=== PATIENT | female | born 1965 | race Caucasian/White ===

== ENCOUNTER → 2016-12-10 | Outpatient (CLI) | payer BC ==
--- NOTE | 2016-12-10 22:10 | MR ---
MRI of the brain with and without contrast HISTORY: MS follow-up COMPARISON: 03/11/2016 TECHNIQUE: T1-weighted sagittal, T2, FLAIR, and diffusion axial, postcontrast T1 axial and coronal vi ews of the brain are submitted. CONTRAST: 18 mL MultiHance FINDINGS: There is no evidence of acute ischemia. The ventricles, basal cisterns, and sulci overlying the co nvexities are consistent with the patient's age. There is no mass effect or enhancing mass. Craniocervical junction maintained. Changes of mild chronic sinusitis noted. There is motion artifact. No cerebellopontine angle mass. There is a partially empty sella turcica. Intraorbital structures have a normal appearance. Changes of mild chronic mastoiditis on the right. T iny pineal gland cyst measuring 4 mm noted. WHITE MATTER: There again is noted to be 8 foci of abnormal signal within the white matter scattered throughout bot h cerebral hemispheres all measuring 5 mm or less. Findings appear stable in size, morphology and num jakub relative to the previous exam. No enhancing lesions. No callosal lesions. No lesions perpendicular to the ventricular system. IMPRESSION: 1. Stable minimal nonspecific white matter changes. Differential diagnosis includes demyelinating pro cess, migraine headaches, hypertension, or remote microvascular ischemia.
== END | disposition home or self-care (01) ==
LOC: RADMRIMAIN 17:12
PROVIDERS: ATTEND Psychiatry & Neurology Neurology
DX: R90.82 White matter disease, unspecified (principal)
CPT/HCPCS: 70553; A9577

== ENCOUNTER → 2016-12-11 | Outpatient (CLI) | payer BC ==
--- NOTE | 2016-12-11 21:49 | MR ---
EXAMINATION TYPE: MR lumbar spine wo con DATE OF EXAM: 12/11/2016 6:03 PM COMPARISON: Prior MRI lumbar spine April 17, 2012. HISTORY: LBP S/P fall 4 years ago; Prior MR on pacs 2011 TECHNIQUE: Multiplanar, multisequence imaging of the lumbar spine is performed without IV contrast. FINDINGS: Sagittal images of the lumbar spine show vertebral body heights and alignment to appear sat isfactory. There is multilevel disc desiccation mild disc space narrowing with relative sparing of L4 -L5 level redemonstrated. No significant posterior disc herniations are seen on sagittal images. The conus medullaris is normal in position and signal ending at mid L1 vertebral body level. There is het erogeneous endplate changes with moderate spurring most pronounced in mid lumbar levels redemonstrate d. Axial images at the T12-L1 level shows small central disc protrusion on axial image 28 minimally effa cing the anterior thecal sac, bilateral neural foramina are patent. Axial images at the L1-L2 level show mild broad disc bulge minimally effacing the anterior thecal sac , bilateral neural foramina are patent. No significant change from prior study is seen. Axial images at the L2-L3 level show mild broad disc bulge mildly effacing anterior thecal sac on axi al image 18, bilateral neural foramina are patent. No significant change from prior study is seen. Axial images at the L3-L4 level show mild facet degenerative changes bilaterally. There is mild to mo derate broad disc bulge minimally effacing the anterior thecal sac, there is mild bilateral anterior inferior neural foraminal narrowing. Degenerative changes have progressed from prior study. Axial images at the L4-L5 level show mild to moderate facet degenerative changes bilaterally. There i s broad-based central disc protrusion minimally effacing the anterior thecal sac, bilateral neural fo ramina are patent. No significant change from prior study is seen. Axial images at L5-S1 level show mild to moderate facet degenerative changes bilaterally. Spinal rodrigo l is preserved and bilateral neural foramina remain patent. IMPRESSION: Multilevel degenerative changes in the lumbar spine most pronounced in the mid lumbar lev els with progression in findings at L3-L4 level noted from prior.
== END | disposition home or self-care (01) ==
LOC: RADMRIMAIN 17:06
PROVIDERS: ATTEND Psychiatry & Neurology Neurology
DX: M47.816 Spondylosis without myelopathy or radiculopathy, lumbar region (principal)
CPT/HCPCS: 72148

== ENCOUNTER → 2016-12-25 | Outpatient (CLI) | payer BC ==
[2016-12-25 19:53] LABS: ALT 48 U/L (9-52); AST 24 U/L (14-36); Alkaline Phosphatase 119 U/L (38-126); Anion Gap 14 mmol/L; Blood Urea Nitrogen 25 mg/dL (7-17); Calcium 9.8 mg/dL (8.4-10.2); Carbon Dioxide 21 mmol/L (22-30); Chloride 105 mmol/L (98-107); Cholesterol 188 mg/dL (<200); Glucose 93 mg/dL (74-99); HDL Cholesterol 68 mg/dL (40-60); Non-African American GFR(MDRD) 39 (>60 ml/min/1.73 sqM); Sodium 140 mmol/L (137-145); Total Bilirubin 0.7 mg/dL (0.2-1.3); Total Protein 7.8 g/dL (6.3-8.2); Triglycerides 183 mg/dL (<150)
== END | disposition home or self-care (01) ==
LOC: MMGSC 15:58
PROVIDERS: ATTEND Family Medicine
DX: E03.9 Hypothyroidism, unspecified (principal); E78.00 Pure hypercholesterolemia, unspecified
CPT/HCPCS: 36415; 80053; 80061; 84439; 84443

== ENCOUNTER → 2017-01-06 | Outpatient (CLI) | payer BC | LOC: MMGSC 16:10 | PROVIDERS: ATTEND Family Medicine | DX: E03.9 Hypothyroidism, unspecified (principal) | CPT/HCPCS: 84439; 84443 ==

== ENCOUNTER → 2017-01-06 | Outpatient (CLI) | payer BC ==
[2017-01-06 19:16] LABS: Basophils % (A) 1 %; CH 33.3; CHCM 34.6; Eosinophils # (A) 0.1 k/uL (0-0.7); Eosinophils % (A) 2 %; HCT 44.8 % (34.0-46.0); Luc # (Auto) 0.19; Luc % (Auto) 3; Lymphocytes # (A) 2.1 k/uL (1.0-4.8); Lymphocytes % (A) 32 %; MCH 32.5 pg (25.0-35.0); MCHC 33.6 g/dL (31.0-37.0); MCV 96.7 fL (80.0-100.0); Mean Platelet Volume 8.4; Monocytes # (A) 0.3 k/uL (0-1.0); Monocytes % (A) 5 %; Neutrophils # (A) 3.7 k/uL (1.3-7.7); Neutrophils % (A) 57 %; RBC 4.63 m/uL (3.80-5.40); RDW 13.9 % (11.5-15.5); WBC 6.4 k/uL (3.8-10.6); WBC (Perox) 6.48
[2017-01-06 19:47] LABS: ALT 41 U/L (9-52); AST 35 U/L (14-36); Alkaline Phosphatase 102 U/L (38-126); Anion Gap 11 mmol/L; Blood Urea Nitrogen 11 mg/dL (7-17); Calcium 9.3 mg/dL (8.4-10.2); Carbon Dioxide 22 mmol/L (22-30); Chloride 108 mmol/L (98-107); Glucose 98 mg/dL (74-99); Non-African American GFR(MDRD) >60 (>60 ml/min/1.73 sqM); Potassium 4.2 mmol/L (3.5-5.1); Sodium 141 mmol/L (137-145); Total Bilirubin 0.6 mg/dL (0.2-1.3); Total Protein 6.9 g/dL (6.3-8.2)
== END ==
LOC: MMGSC 16:09
PROVIDERS: ATTEND Nurse Practitioner Acute Care
DX: G35 Multiple sclerosis (principal)
CPT/HCPCS: 36415; 80053; 85025

== ENCOUNTER → 2017-04-14 | Outpatient (CLI) | payer BC ==
[2017-04-14 18:51] LABS: ALT 53 U/L (9-52); AST 32 U/L (14-36); Alkaline Phosphatase 117 U/L (38-126); Anion Gap 10 mmol/L; Blood Urea Nitrogen 11 mg/dL (7-17); Calcium 9.6 mg/dL (8.4-10.2); Carbon Dioxide 24 mmol/L (22-30); Chloride 108 mmol/L (98-107); Glucose 88 mg/dL (74-99); Non-African American GFR(MDRD) 52 (>60 ml/min/1.73 sqM); Potassium 4.4 mmol/L (3.5-5.1); Sodium 142 mmol/L (137-145); Total Bilirubin 0.4 mg/dL (0.2-1.3)
== END ==
LOC: MMGSC 16:46
PROVIDERS: ATTEND Family Medicine
DX: E03.9 Hypothyroidism, unspecified (principal); E55.9 Vitamin D deficiency, unspecified; Z51.81 Encounter for therapeutic drug level monitoring
CPT/HCPCS: 36415; 80053; 82306; 84439; 84443

== ENCOUNTER → 2017-06-18 | Outpatient (CLI) | payer BC ==
--- NOTE | 2017-06-18 21:01 | MR ---
EXAMINATION TYPE: MR brain wo/w con DATE OF EXAM: 06/18/2017 COMPARISON: Prior MRI brain December 10, 2016. HISTORY: Headaches and Follow Up MS, white matter changes per order. TECHNIQUE: Multiplanar, multisequence images of the brain and brainstem is performed without and with IV contras t, utilizing 8.5 mL intravenous Gadavist gadolinium contrast is administered intravenously. Demyelin ating disease protocol with additional Sagittal Flair sequence performed. FINDINGS: T2 Lesions Present : Yes Approximate Number of Lesions: 6-10 scattered lesions Locations Identified : Superficial deep and periventricular lesions. Size of Reference Lesion(s): 1. 0.5 cm x 0.5 cm x 1.3 cm on axial image 21 and sagittal image 33 right frontal subcortical lesion stable. 2 0.5 cm x 0.4 cm x 0.4 cm on axial image 17 and sagittal image 15 left frontal periventricular les ion stable. Enhancing Lesion(s) Present: No Change from Prior: Stable Diffusion weighted images demonstrate no evidence of a recent infarct or other diffusion abnormality. There is no worrisome extra-axial fluid collection. The ventricular system and cisternal spaces ar e normal in size and appearance. The brain volume is age appropriate. Midline structures demonstrate normal morphology. The craniocervical junction appears within normal limits. Post contrast images demonstrate no abnormal enhancement. The dural venous sinuses appear pa tent. Mild mucosal thickening involving anterior ethmoid sinuses bilaterally remains present otherwis e paranasal sinuses are clear. Globes are intact bilaterally. IMPRESSION: Mild nonspecific white matter changes redemonstrated. No new or enhancing lesions are see n.
== END | disposition home or self-care (01) ==
LOC: RADMRIMAIN 16:45
PROVIDERS: ATTEND Nurse Practitioner Acute Care
DX: R90.82 White matter disease, unspecified (principal)
CPT/HCPCS: 70553; A9581

== ENCOUNTER → 2017-07-14 | Outpatient (CLI) | payer BC ==
[2017-07-14 18:49] LABS: Basophils # (A) 0.1 k/uL (0-0.2); Basophils % (A) 1 %; CH 33.2; CHCM 33.5; Eosinophils # (A) 0.2 k/uL (0-0.7); Eosinophils % (A) 3 %; HCT 46.3 % (34.0-46.0); HDW 2.53; HGB 15.3 gm/dL (11.4-16.0); Luc # (Auto) 0.11; Luc % (Auto) 2; Lymphocytes # (A) 2.3 k/uL (1.0-4.8); Lymphocytes % (A) 31 %; MCH 32.9 pg (25.0-35.0); MCHC 33.1 g/dL (31.0-37.0); MCV 99.6 fL (80.0-100.0); Mean Platelet Volume 8.2; Monocytes # (A) 0.3 k/uL (0-1.0); Monocytes % (A) 4 %; Neutrophils # (A) 4.4 k/uL (1.3-7.7); Neutrophils % (A) 60 %; RBC 4.65 m/uL (3.80-5.40); WBC 7.4 k/uL (3.8-10.6); WBC (Perox) 7.47
[2017-07-14 19:01] LABS: ALT 49 U/L (9-52); AST 31 U/L (14-36); Alkaline Phosphatase 117 U/L (38-126); Anion Gap 8 mmol/L; Blood Urea Nitrogen 11 mg/dL (7-17); Calcium 9.8 mg/dL (8.4-10.2); Carbon Dioxide 25 mmol/L (22-30); Chloride 106 mmol/L (98-107); Cholesterol 193 mg/dL (<200); Glucose 79 mg/dL (74-99); HDL Cholesterol 46 mg/dL (40-60); Non-African American GFR(MDRD) >60 (>60 ml/min/1.73 sqM); Potassium 4.4 mmol/L (3.5-5.1); Sodium 139 mmol/L (137-145); Total Bilirubin 0.4 mg/dL (0.2-1.3)
== END ==
LOC: MMGSC 17:07
PROVIDERS: ATTEND Family Medicine
DX: E78.5 Hyperlipidemia, unspecified (principal); E03.9 Hypothyroidism, unspecified; I10 Essential (primary) hypertension
CPT/HCPCS: 36415; 80053; 80061; 83721; 84439; 84443; 84480; 85025

== ENCOUNTER 2017-11-06 09:56 | Day surgery (SDC) | payer BC ==
[2017-11-03 15:06] VITALS: BMI 29.7
[~2017-11-06 09:56] MED LIST: LACTATED RINGERS 1,000 ML IV SCH; LIDOCAINE 1% 20 ML VIAL (10MG/ML) FOR IV START INTRADERMA PRN
[2017-11-06 10:20] VITALS: TEMP 97.6
[2017-11-06] MEDS ORDERED: PROPOFOL 10 MG/ML 20 ML VIAL IV ONE (11:06)
--- NOTE | 2017-11-06 11:28 | P.PCN ---
Date of Procedure: 11/06/17 Procedure(s) Performed: BRIEF HISTORY: Patient is a 52 -year-old pleasant white female, scheduled for an elective colonoscopy as a part of in for colorectal neoplasia. PROCEDURE PERFORMED: Colonoscopy. PREOPERATIVE DIAGNOSIS: Screening for colon cancer. IV sedation per Anesthesia. PROCEDURE: After informed consent was obtained, the patient, was brought into the endoscopy unit. IV sedation was administered by Anesthesia under continuous monitoring. Digital rectal examination was normal. Initially the Olympus CF- 160 flexible video colonoscope was then inserted in the rectum, gradually advanced into the cecum without any difficulty. Careful examination was performed as the scope was gradually being withdrawn. Ileocecal valve and the appendiceal orifice were visualized and appeared normal. Prep was poor in some areas of the colon. Mucosa of the cecum, ascending colon, transverse colon, descending colon, sigmoid colon, and rectum appeared normal. Retroflexion was performed in the rectum and no lesions were seen. The patient tolerated the procedure well. IMPRESSION: Normal-appearing colon from rectum to cecum with no evidence of colorectal neoplasia. RECOMMENDATIONS: Findings of this examination were discussed with the patient as well as her family. She was advised to have a repeat screening colonoscopy in 5 years from now because of poor prep that was encountered this examination.
[2017-11-06 11:48] VITALS: BP 132/76; PULSE 78; RESP 18
== END 2017-11-06 12:08 | disposition home or self-care (01) ==
LOC: ORWHC2ENDO 09:56
PROVIDERS: ATTEND Internal Medicine Gastroenterology
DX: Z12.11 Encounter for screening for malignant neoplasm of colon (principal); E78.5 Hyperlipidemia, unspecified; F17.200 Nicotine dependence, unspecified, uncomplicated; E07.9 Disorder of thyroid, unspecified; K21.9 Gastro-esophageal reflux disease without esophagitis; Z79.82 Long term (current) use of aspirin; Z79.891 Long term (current) use of opiate analgesic; Z79.899 Other long term (current) drug therapy
CPT/HCPCS: J2704; G0121

== ENCOUNTER → 2018-04-06 | Outpatient (CLI) | payer BC ==
--- NOTE | 2018-04-07 00:27 | MR ---
EXAMINATION TYPE: MR lumbar spine wo/w con DATE OF EXAM: 04/06/2018 COMPARISON: 12/11/2016 HISTORY: Low back pain TECHNIQUE: Multiplanar, multisequence images of the lumbar spine were acquired utilizing 10 mL intravenous gadol inium contrast. The lumbar vertebra have normal alignment. There is mild narrowing and decreased signal in the disks throughout the lumbar spine. There is no compression fracture. The neuroforamina are fairly well-main tained. There is no spinal stenosis. There is no lumbar paraspinal mass. I see no bony destructive pr ocess. The contrast images show no pathologic enhancement. The visualized sacroiliac joints appear in tact. There is a developmentally large spinal canal and no sign of risk for spinal stenosis. There is a small rounded 7 mm fluid signal area in the right side neural foramen of L5-S1. IMPRESSION: Mild degenerative disc changes in the lumbar spine. No spinal stenosis or lumbar significant disc her niation. There is overall not in adverse change compared to old exam. Stable small lateral meningocel e at L5-S1 on the right side.
== END | disposition home or self-care (01) ==
LOC: RADMRIMAIN 14:34
PROVIDERS: ATTEND Pain Medicine Pain Medicine
DX: M47.26 Other spondylosis with radiculopathy, lumbar region (principal); Q05.7 Lumbar spina bifida without hydrocephalus
CPT/HCPCS: 82565; 84520; 72158; 36415; A9581

== ENCOUNTER 2018-07-04 18:49 | Emergency (ER) | payer BC ==
[2018-07-04 18:57] VITALS: BP 135/88; PULSE 91; RESP 18; TEMP 98.5
[2018-07-04] MEDS ORDERED: TOPICAL SKIN ADHESIVE 1 EACH AMP TOPICAL ONE (19:18)
[2018-07-04] MEDS ORDERED: DIPH,PERTUS(ACELL)TETVAC-LF 0.5 ML VIAL IM ONE (19:18)
--- NOTE | 2018-07-04 19:52 | ED ---
Wound/Laceration HPI - General Chief Complaint: Wound/Laceration Stated Complaint: Hand Laceration Time Seen by Provider: 07/04/18 19:12 Source: patient, RN notes reviewed Mode of arrival: ambulatory Limitations: no limitations - History of Present Illness Initial Comments: This is a pleasant 53-year-old, [id number] female presents emergency department complaining of a laceration to the palmar aspect of her hand. She sustained from a tin can lid from a dog food can. Injury occurred just prior to arrival. Patient is on sure of her last tetanus shot. Patient denies any other injuries. Patient is a cigarette smoker. Patient denies any other health issues which would cause immunosuppression. - Related Data Home Medications Medication Instructions Recorded Confirmed Butalbit/Acetamin/Caff/Codeine 1 - 2 tab PO Q6H PRN 01/21/15 11/06/17 [Butal/APAP/Caff/Cod 79-734-91-30MG] HYDROcodone/APAP 7.5-325MG [Tye 1 tab PO Q6HR PRN 03/04/16 11/06/17 7.5-325] Levothyroxine Sodium [Synthroid] 50 mcg PO DAILY 03/05/16 11/06/17 Atorvastatin [Lipitor] 40 mg PO HS 10/03/17 11/06/17 Cyclobenzaprine [Flexeril] 10 mg PO HS 10/03/17 11/06/17 DULoxetine HCL [Cymbalta] 60 mg PO DAILY 10/03/17 11/06/17 Levothyroxine Sodium [Synthroid] 200 mcg PO DAILY 10/03/17 11/06/17 Temazepam [Restoril] 15 mg PO HS 10/03/17 11/06/17 Topiramate [Topamax] 50 mg PO DAILY 10/03/17 11/06/17 Aspirin EC [Ecotrin] 325 mg PO HS 11/03/17 11/06/17 Allergies Allergy/AdvReac Type Severity Reaction Status Date / Time gabapentin Allergy Rash/Hives Verified 07/04/18 18:57 Review of Systems ROS Statement: Those systems with pertinent positive or pertinent negative responses have been documented in the HPI. ROS Other: All systems not noted in ROS Statement are negative. Past Medical History Past Medical History: GERD/Reflux, Hyperlipidemia, Neurologic Disorder, Thyroid Disorder Additional Past Medical History / Comment(s): 2016 Possible TIA/CVA or migraine with double vision, currently being tested for multiple sclerosis, chronic low back pain-L1,2,3, frequent migraines, hypothyroid. History of Any Multi-Drug Resistant Organisms: None Reported Past Surgical History: Section, Orthopedic Surgery Additional Past Surgical History / Comment(s): BONE SPURS REMOVED FROM BILAT SHOULDERS Past Anesthesia/Blood Transfusion Reactions: No Reported Reaction Past Psychological History: No Psychological Hx Reported Smoking Status: Current every day smoker Past Alcohol Use History: Occasional Past Drug Use History: None Reported - Past Family History Father History Unknown: Yes Family Medical History: Diabetes Mellitus Additional Family Medical History / Comment(s): Father lived to be 78yrs old. Mother History Unknown: Yes Family Medical History: COPD, Respiratory Disorder Additional Family Medical History / Comment(s): Mother of respiratory failure at the age of 69yrs. General Exam Limitations: no limitations General appearance: alert Head exam: Present: atraumatic, normocephalic, normal inspection Eye exam: Present: normal appearance, EOMI ENT exam: Present: normal exam Neck exam: Present: normal inspection. Absent: tenderness, meningismus, lymphadenopathy Respiratory exam: Present: normal lung sounds bilaterally. Absent: respiratory distress, wheezes, rales, rhonchi, stridor Cardiovascular Exam: Present: regular rate, normal rhythm, normal heart sounds. Absent: systolic murmur, diastolic murmur, rubs, gallop, clicks Right Forearm Wrist exam: Present: normal inspection, full ROM, tenderness. Absent: laceration, ecchymosis Hand Wrist exam: Present: full ROM, laceration, other (1.5 cm linear laceration overlying the hyperthenar eminence, no contamination or foreign body no surrounding tenderness). Absent: normal inspection, tenderness, swelling, abrasion, ecchymosis, deformity Neuro motor exam: Present: wrist extension intact, thumb opposition intact. Absent: thumb IP flexion intact, thumb adduction intact, fingers 2-5 abduction intact Vascular: Present: normal capillary refill (Less than 2 seconds), radial pulse ( 2+), brachial pulse (2+). Absent: vascular compromise Course Vital Signs 07/04/18 18:55 Temperature 98.5 F Pulse Rate 91 Respiratory 18 Rate Blood Pressure 135/88 O2 Sat by Pulse 98 Oximetry Procedures - Laceration Laceration #1 Consent Obtained: verbal consent Time Out Performed: No Indication: laceration Site: hand (Right) Size (cm): 2 Description: linear Depth: simple, single layer Pre-repair: wound explored, irrigated extensively Type of Sutures: other (Tissue adhesive) Patient Tolerated Procedure: well, no complications Medical Decision Making - Medical Decision Making Patient counseled on signs and symptoms of infection. Patient counseled on wound care and follow-up. Return and follow-up parameters discussed. Disposition Clinical Impression: Laceration of right hand without complication, excluding fingers Disposition: HOME SELF-CARE Condition: Good Instructions: Skin Adhesive Care (ED) Additional Instructions: .Return to the ER at once if the symptoms worsen or problems or difficulties arise. Is patient prescribed a controlled substance at d/c from ED?: No Referrals: Kim Osborne MD [Primary Care Provider] - 1-2 days Time of Disposition: 20:01
== END 2018-07-04 20:00 | disposition home or self-care (01) ==
LOC: EC 18:49
DX: S61.411A Laceration without foreign body of right hand, initial encounter (principal); E78.5 Hyperlipidemia, unspecified; E03.9 Hypothyroidism, unspecified; G43.909 Migraine, unspecified, not intractable, without status migrainosus; M54.5 Low back pain; G89.29 Other chronic pain; Z23 Encounter for immunization; F17.210 Nicotine dependence, cigarettes, uncomplicated; Z79.82 Long term (current) use of aspirin; Z79.899 Other long term (current) drug therapy; Z88.8 Allergy status to other drugs, medicaments and biological substances; W26.8XXA Contact with other sharp object(s), not elsewhere classified, initial encounter
CPT/HCPCS: 12001; 90471; 90715; 99282

== ENCOUNTER → 2018-08-24 | Outpatient (CLI) | payer BC ==
--- NOTE | 2018-08-26 10:28 | MM ---
Reason for exam: screening (asymptomatic). Last mammogram was performed 3 years and 5 months ago. History: Patient is postmenopausal. Physical Findings: A clinical breast exam by your physician is recommended on an annual basis and results should be correlated with mammographic findings. MG Screening Mammo w CAD Bilateral CC and MLO view(s) were taken. Prior study comparison: April 06, 2015, bilateral MG screening mammo w CAD. October 27, 2012, bilateral digital screening mammo w/CAD. There are scattered fibroglandular densities. Finding: There is a 5 mm indistinct irregular mass located 6 cm from the nipple in the upper outer quadrant, middle position of the left breast. Recommend compression left CC and MLO and standard ML view. New finding since April 06, 2015 and October 27, 2012. ASSESSMENT: Incomplete: need additional imaging evaluation, BI-RAD 0 RECOMMENDATION: Special view mammogram of the left breast. If lesion persists on supplemental views, image directed ultrasound is recommended. [facility] will attempt to contact patient to return for supplemental views and ultrasound if indicated.
== END ==
LOC: RADMAMWWP 15:34
PROVIDERS: ATTEND Family Medicine
DX: Z12.31 Encounter for screening mammogram for malignant neoplasm of breast (principal)
CPT/HCPCS: 77067

== ENCOUNTER → 2019-07-15 | Outpatient (CLI) | payer OTHER ==
--- NOTE | 2019-07-15 12:30 | XR ---
Thoracic spine HISTORY: Back strain 3 views of the thoracic spine There is a mild S-shaped thoracic lumbar scoliosis. There is multilevel spondylosis. Loss of disc hei ght present at intervertebral levels. Thoracic vertebral bodies show preserved height and bone minera lization. IMPRESSION: Degenerative disc disease.
== END | disposition home or self-care (01) ==
LOC: RADXRMAIN 12:13
PROVIDERS: ATTEND Emergency Medicine
DX: M51.34 Other intervertebral disc degeneration, thoracic region (principal)
CPT/HCPCS: 72072

== ENCOUNTER → 2019-12-29 | Outpatient (CLI) | payer OTHER ==
--- NOTE | 2019-12-29 16:47 | XR ---
Cervical spine HISTORY: Trauma and pain 5 views of the cervical spine No comparisons Multilevel facet arthropathy is present. Foraminal encroachment is present due to uncovertebral joint hypertrophy at C4-5 and C5-6 bilaterally. There is associated loss of disc height at C4-5, C5-6 and C6-7, associated spondylosis. Loss of normal cervical lordosis may be due to muscle spasm. Prevertebr al soft tissues are normal. C7-T1 not included on exam. IMPRESSION: Degenerative disc disease and facet arthropathy. No acute fracture or subluxation evident with limitations as described.
--- NOTE | 2019-12-29 16:48 | XR ---
Lumbar spine HISTORY: Contusion, trauma and pain 3 views of the lumbar spine correlated to prior exam 04/09/2012 Lumbar vertebral bodies show preserved height and alignment. Bone mineralization is reduced. There is multilevel spondylosis. Loss of disc height present at the intervertebral levels. Sclerosis in the p osterior elements consistent with facet arthropathy. Vascular calcifications present within the aorto iliac distribution. IMPRESSION: Degenerative disc disease and facet arthropathy, no acute fracture or subluxation. Osteop enia.
--- NOTE | 2019-12-29 17:21 | XR ---
AP pelvis HISTORY: Trauma and pain Single frontal view of the pelvis Facet arthropathy changes noted in the lower lumbar spine. Bone mineralization is maintained. Alignme nt and joint spaces are normal. Osteitis pubis changes are present. IMPRESSION: No acute fracture or dislocation.
== END | disposition home or self-care (01) ==
LOC: RADXRMAIN 16:22
PROVIDERS: ATTEND Emergency Medicine
DX: M50.30 Other cervical disc degeneration, unspecified cervical region (principal); M47.812 Spondylosis without myelopathy or radiculopathy, cervical region; M51.36 Other intervertebral disc degeneration, lumbar region; M47.816 Spondylosis without myelopathy or radiculopathy, lumbar region; S30.0XXA Contusion of lower back and pelvis, initial encounter
CPT/HCPCS: 72050; 72100; 72170

== ENCOUNTER → 2020-07-07 | Outpatient (CLI) | payer BC ==
[2020-07-07 13:05] LABS: Basophils % (A) 0 %; Eosinophils # (A) 0.2 k/uL (0-0.7); Eosinophils % (A) 2 %; HCT 46.3 % (34.0-46.0); HGB 15.3 gm/dL (11.4-16.0); Lymphocytes # (A) 2.3 k/uL (1.0-4.8); Lymphocytes % (A) 28 %; MCV 99.8 fL (80.0-100.0); Mean Platelet Volume 8.5; Monocytes # (A) 0.4 k/uL (0-1.0); Monocytes % (A) 5 %; Neutrophils # (A) 5.5 k/uL (1.3-7.7); Neutrophils % (A) 65 %; Platelet Count 205 k/uL (150-450); RBC 4.63 m/uL (3.80-5.40); RDW 12.6 % (11.5-15.5); WBC 8.5 k/uL (3.8-10.6)
[2020-07-07 19:03] LABS: Cyclic Citrull Pep IgG Unit <0.5 U/mL; Cyclic Citrullinated Pep IgG NEGATIVE (NEGATIVE)
[2020-07-07 19:24] LABS: ALT 27 U/L (8-44); AST 26 U/L (13-35); Albumin/Globulin Ratio 2.47 (1.60-3.17); Alkaline Phosphatase 89 U/L (41-126); BUN/Creat Ratio 11.82 Ratio (12.00-20.00); Calcium 9.1 mg/dL (8.7-10.3); Carbon Dioxide 27.1 mmol/L (21.6-31.8); Chloride 108 mmol/L (96-109); Creatine Kinase 251 U/L (26-186); Globulin 1.9 g/dL (1.6-3.3); Glucose 82 mg/dL (70-110); Magnesium 2.1 mg/dL (1.5-2.4); Non-African American GFR(CKD) 56.1 (60.0-200.0); Potassium 4.1 mmol/L (3.5-5.5); Rheumatoid Factor, Qnt <4 IU/mL (0-13); Sodium 140 mmol/L (135-145); Total Bilirubin 0.6 mg/dL (0.3-1.2); Total Protein 6.6 g/dL (6.2-8.2)
[2020-07-07 19:48] LABS: Erythrocyte Sedimentation Rate 8 mm/Hr (0-30)
== END | disposition home or self-care (01) ==
LOC: LABWHC1 11:52
PROVIDERS: ATTEND Family Medicine
DX: M79.10 Myalgia, unspecified site (principal); M25.50 Pain in unspecified joint
CPT/HCPCS: 36415; 80053; 82550; 83735; 85025; 85652; 86200; 86431

== ENCOUNTER → 2020-07-20 | Outpatient (CLI) | payer BC | END | disposition home or self-care (01) | LOC: LABWHC1 10:21 | PROVIDERS: ATTEND Family Medicine | DX: M79.10 Myalgia, unspecified site (principal) | CPT/HCPCS: 36415; 82550 ==

== ENCOUNTER → 2021-01-10 | Outpatient (CLI) | payer BC ==
--- NOTE | 2021-01-10 21:29 | MR ---
EXAMINATION TYPE: MR lumbar spine wo con DATE OF EXAM: 01/10/2021 COMPARISON: 12/11/2016 HISTORY: Low back pain for 1 month that travels down left leg. CONTRAST: 0 mL intravenous Gadavist. TECHNIQUE: Multiplanar, multisequence images of the lumbar spine were acquired. FINDINGS: L5-S1: No significant disc bulge or disc herniation. No spinal canal stenosis. No foraminal stenosi s. Facet hypertrophy is present.. L4-L5: No significant disc bulge or disc herniation. No spinal canal stenosis. No foraminal stenosi s. . L3-L4: Moderate left lateral disc bulge is present extending into the neural foramen. This has contac t with the exiting nerve root. Moderate foraminal narrowing is present. Mild facet hypertrophy is pre sent. No spinal canal stenosis. L2-L3: No significant disc bulge or disc herniation. No spinal canal stenosis. No foraminal stenosi s. . L1-L2: No significant disc bulge or disc herniation. No spinal canal stenosis. No foraminal stenosi s. . T12-L1: There is a broad central disc herniation with mild to moderate anterior thecal sac compressio n. No cord contact is evident. On the scan extends beyond the endplate of L1. No spinal canal stenosi s. No foraminal stenosis. . IMPRESSION: 1. Central disc herniation T12-L1 with mild to moderate anterior thecal sac impression. 2. Left lateral disc bulging with nerve root contact within the foramen at the L3-4 level. Moderate f oraminal narrowing is present.
== END | disposition home or self-care (01) ==
LOC: RADMRIMAIN 19:08
PROVIDERS: ATTEND Orthopaedic Surgery
DX: M48.061 Spinal stenosis, lumbar region without neurogenic claudication (principal); M51.25 Other intervertebral disc displacement, thoracolumbar region; M51.26 Other intervertebral disc displacement, lumbar region
CPT/HCPCS: 72148

== ENCOUNTER → 2021-01-18 | Outpatient (CLI) | payer BC | END | disposition home or self-care (01) | LOC: LABWHC1 09:03 | PROVIDERS: ATTEND Family Medicine | DX: Z20.822 Contact with and (suspected) exposure to COVID-19 (principal) | CPT/HCPCS: U0003; C9803; U0005 ==

== ENCOUNTER 2021-03-08 06:27 | Day surgery (SDC) | payer BC ==
[2021-03-07 14:43] VITALS: BMI 29.2
[~2021-03-08 06:27] MED LIST changes: -LIDOCAINE 1% 20 ML VIAL (10MG/ML) FOR IV START INTRADERMA PRN
[2021-03-08 06:53] VITALS: RESP 16; TEMP 97
[2021-03-08] MEDS ORDERED: fentaNYL (PF) 50 MCG/ML 2 ML AMP ONE (07:35)
[2021-03-08] MEDS ORDERED: MIDAZOLAM 2 MG/2 ML VIAL ONE (07:35)
[2021-03-08] MEDS ORDERED: LIDOCAINE 1% INJ 10MG/ML (20 ML MDV) ONE (07:35)
[2021-03-08] MEDS ORDERED: IOPAMIDOL M200 10 ML VIAL ONE (07:35)
[2021-03-08] MEDS ORDERED: DEXAMETHASONE SOD PHOSPHATE 10 MG/ML 1 ML VIAL ONE (07:35)
--- NOTE | 2021-03-08 07:57 | P.PCN ---
Date of Procedure: 03/08/21 Surgeon: Peyton Ramírez Pathology: none sent Condition: stable Disposition: PACU Description of Procedure: PREOPERATIVE DIAGNOSIS: Lumbar radiculopathy POSTOPERATIVE DIAGNOSIS: Lumbar radiculopathy PROCEDURE 1. Transforaminal epidural steroid injection under fluoroscopic guidance at left L2-3, and L3-4 2. Lumbar epidurogram. SURGEON: Peyton Ramírez MD MENTAL HEALTH THERAPIST: ANESTHESIA: Local with 1% lidocaine; IV sedation with Versed and fentanyl. EBL: Minimal PROCEDURE INDICATION: The patient with low back pain and radiculopathy symptoms unresponsive to conservative treatment. PROCEDURE DESCRIPTION / TECHNIQUE: The patient was seen and identified in the preoperative area. Risks, benefits, complications, and alternatives were discussed with the patient. The patient agreed to proceed with the procedure and signed the consent. IV was started, and vital signs were stable. Patient was taken to the OR and time out was completed. The patient was placed in the prone position on procedure table and a pillow was placed under the abdomen to reduce lumbar lordosis. The lumbosacral area was prepped and draped in the usual sterile fashion. Critical pause was taken. Vital signs were closely monitored during the procedure. Conscious sedation was used during the procedure to decrease patients anxiety. The vertebral body of the lumbar vertebra L2 was squared off by tilting the C-arm cephalad then the C-arm was tilted to the oblique position and the target point was at the 6 o'clock position of the pedicle of then skin and deeper tissues were localized with 1% lidocaine. Subsequently, a 22-gauge 5- inch spinal needle was advanced under a tunneled view fluoroscopic guidance just underneath the chin of the Roberto dog at the . Under lateral fluoroscopy, the needle was then advanced to the middle of the upper one third of the foramen between( L2-3). After negative aspiration of CSF and blood and with no paresthesias, 1 mL of omnipaque contrast dye was injected excellent epidurogram and outlining of the L2 nerve root was identified. Subsequently, 1.5 mL of block solution containing 7.5 mg of Decadron and 1 mL of Lidocaine 1% PF was injected. Needle was removed and the same procedure was repeated at the L3-L4 level . The patient had short-lived paresthesia when I was doing the L2-L3 level which resolved upon withdrawal of the needle. At the end of the proc edure, skin was cleansed, and bandages were applied. COMPLICATIONS: None COMMENTS: DISPOSITION / PLANS: The patient was placed in a supine position and transferred to the recovery area in a stable condition for observation. There was no evidence of lower extremity motor or sensory deficit after the procedure. Patient was discharged from the recovery room after meeting discharge criteria. Home discharge instructions were given to the patient by the staff.
[2021-03-08] MEDS ORDERED: IV FLUID CONTINUATION 400 ML IV ONE (08:02)
[2021-03-08 08:21] VITALS: BP 127/87; PULSE 61
--- NOTE | 2021-03-08 08:29 | FL ---
Fluoroscopy HISTORY: Pain 44 seconds fluoroscopy time supplied to the referring clinician. 2 intraoperative C-arm images docum ent the procedure. See dictated report from anesthesia.
== END 2021-03-08 08:37 | disposition home or self-care (01) ==
LOC: ORPAIN 06:27
PROVIDERS: ATTEND Anesthesiology
DX: M54.16 Radiculopathy, lumbar region (principal); Z79.82 Long term (current) use of aspirin
CPT/HCPCS: 64483; 64484; J2250; J1100; J2001; J3010; Q9966; 99152

== ENCOUNTER → 2021-04-18 | Outpatient (CLI) | payer BC ==
[2021-04-18 14:18] VITALS: BP 145/82; PULSE 75; RESP 18; TEMP 98.3
--- NOTE | 2021-04-18 14:50 | P.PN ---
Subjective Progress Note Date: 04/18/21 This is from office visit for this 56 years old female with a chronic history of severe low back pain with radiation to the left lower extremity, Norwegian datelumbar radiculopathy and lumbar disc herniation and lumbar foraminal stenosis and lumbar spondylosis with lumbar facet arthropathy, recently we have done left side transforaminal epidural steroid injection at L2-3 and L3 4 , patient reported that she had good pain relief for short-term after the injection, and he she is having severe low back pain with radiation to the left lower extremity associated with some numbness and tingling sensation, she feels occasional weakness in her left leg, she is able to ambulate, she denies any fever or night sweats. She denies any change in the bowel movement or urination Objective - Vital Signs Vital signs: Vital Signs Temp 98.3 F 04/18/21 14:14 Pulse 75 04/18/21 14:14 Resp 18 04/18/21 14:14 BP 145/82 04/18/21 14:14 Pulse Ox 97 04/18/21 14:14 Intake & Output 04/17/21 04/18/21 04/18/21 18:59 06:59 18:59 Weight 87.09 kg - Exam Physical Examinations : -Constitutiona : Cooperative , not in acute distress . -HEENT : nech : supple , no Lymphadenopathy , normal thyroid size . : eyes : no ptosis , no icterus, no photophobia . - neurologic : Cranial nerve II to XII intact , no focal neurological deffecit . -psychatric : alert , oriented X 3 , appropriate affect , intact judgment and insight . -Lymphatic : no Lymphadenopathy . - musculoskeltal : Lumber spine moter stegnth lower extremities ,thigh and legs 5/5 Right side , 5/5 Left side deep tendon reflexes : normal Knee Jerk , normal ankle Jerk lumber facet Loading Test = negative Right , positive Left Range of motion of the lumbar spine Flexion 30 degrees, extension 10 degrees strait leg raising test = positive at 30 degree on the left side and is negative on the right side Fabere test= negative Right , and positive LT . Sever tenderness over the Sacroiliac joint on the Left side MRI of the lumbar spine and foraminal stenosis and lumbar degenerative disc disease and lumbar disc herniation and lumbar spondylosis with facet arthropathy Assessment and Plan Plan: Assessment and plan=1-lumbar radiculopathy. 2-lumbar foraminal stenosis. 3-lumbar degenerative disc disease. 4-lumbar spondylosis and lumbar facet arthropathy. 5-lumbar disc herniation. She could benefit from repeat left-sided transforaminal epidural steroid injection at L2-3, and L3 4 , under fluoroscopy guidance. - PQRS measures = - Patient's medications are documented in the chart. -Tobacco use is negative and counseling.Given. -Patient's has not received pneumococcal vaccine. -Advanced care planning discussed, patient not eligible. -Opiate contract not signed. -Pain positive and follow-up visit/procedure is scheduled. -Patient's blood pressure measured [145/82 ] , and documented in the record ,and patient will follow up with the primary care. -Patient's weight was measured and body mass index [ ] above the normal limits and counseling was done. and patient instructed to follow-up with the primary care physician. -Patient was not identified as an unhealthy alcohol user Time with Patient: Less than 30
== END | disposition home or self-care (01) ==
LOC: PNWHC3 14:08
PROVIDERS: ATTEND Specialist
DX: M48.061 Spinal stenosis, lumbar region without neurogenic claudication (principal); M47.26 Other spondylosis with radiculopathy, lumbar region; M46.96 Unspecified inflammatory spondylopathy, lumbar region; M51.26 Other intervertebral disc displacement, lumbar region
CPT/HCPCS: 99211

== ENCOUNTER 2021-05-17 09:51 | Day surgery (SDC) | payer BC ==
[2021-05-17 10:31] VITALS: TEMP 96.6
[2021-05-17] MEDS ORDERED: LIDOCAINE 1% INJ 10MG/ML (20 ML MDV) ONE (11:10)
[2021-05-17] MEDS ORDERED: fentaNYL (PF) 50 MCG/ML 2 ML AMP ONE (11:10)
[2021-05-17] MEDS ORDERED: MIDAZOLAM 2 MG/2 ML VIAL ONE (11:10)
[2021-05-17] MEDS ORDERED: DEXAMETHASONE SOD PHOSPHATE 10 MG/ML 1 ML VIAL ONE (11:10)
[2021-05-17] MEDS ORDERED: IOPAMIDOL M200 10 ML VIAL ONE (11:10)
--- NOTE | 2021-05-17 11:28 | P.PCN ---
Date of Procedure: 05/17/21 Surgeon: Peyton Ramírez Pathology: none sent Condition: stable Disposition: PACU Description of Procedure: PREOPERATIVE DIAGNOSIS: Lumbar radiculopathy POSTOPERATIVE DIAGNOSIS: Lumbar radiculopathy PROCEDURE 1. Transforaminal epidural steroid injection under fluoroscopic guidance at left L2-3, and L3-4 2. Lumbar epidurogram. SURGEON: Peyton Ramírez MD BRICKMASON: ANESTHESIA: Local with 1% lidocaine; IV sedation with Versed and fentanyl. EBL: Minimal PROCEDURE INDICATION: The patient with low back pain and radiculopathy symptoms unresponsive to conservative treatment. PROCEDURE DESCRIPTION / TECHNIQUE: The patient was seen and identified in the preoperative area. Risks, benefits, complications, and alternatives were discussed with the patient. The patient agreed to proceed with the procedure and signed the consent. IV was started, and vital signs were stable. Patient was taken to the OR and time out was completed. The patient was placed in the prone position on procedure table and a pillow was placed under the abdomen to reduce lumbar lordosis. The lumbosacral area was prepped and draped in the usual sterile fashion. Critical pause was taken. Vital signs were closely monitored during the procedure. Conscious sedation was used during the procedure to decrease patients anxiety. The vertebral body of the lumbar vertebra L2 was squared off by tilting the C-arm cephalad then the C-arm was tilted to the oblique position and the target point was at the 6 o'clock position of the pedicle of then skin and deeper tissues were localized with 1% lidocaine. Subsequently, a 22-gauge 5- inch spinal needle was advanced under a tunneled view fluoroscopic guidance just underneath the chin of the Roberto dog at the . Under lateral fluoroscopy, the needle was then advanced to the middle of the upper one third of the foramen between( L2-3). After negative aspiration of CSF and blood and with no paresthesias, 1 mL of omnipaque contrast dye was injected excellent epidurogram and outlining of the L2 nerve root was identified. Subsequently, 2 mL of block solution containing 5 mg of Decadron and 1.5 mL of Lidocaine 1% PF was injected. Needle was removed and the same procedure was repeated at the L3-L4 level . At the end of the procedure, skin was cleansed, and bandages were applied. COMPLICATIONS: None COMMENTS: DISPOSITION / PLANS: The patient was placed in a supine position and transferred to the recovery area in a stable condition for observation. There was no evidence of lower extremity motor or sensory deficit after the procedure. Patient was discharged from the recovery room after meeting discharge criteria. Home discharge instructions were given to the patient by the staff.
[2021-05-17 11:42] VITALS: PULSE 62
[2021-05-17] MEDS ORDERED: IV FLUID CONTINUATION 1,000 ML IV ONE (11:42)
--- NOTE | 2021-05-17 12:05 | FL ---
EXAMINATION TYPE: FL guided pain mgmt statistic DATE OF EXAM: 05/17/2021 HISTORY: Fluoroscopy time 11 seconds of fluoroscopy provided. IMPRESSION: 1. Fluoroscopy time.
[2021-05-17 12:10] VITALS: BP 141/87; RESP 18
== END 2021-05-17 12:11 | disposition home or self-care (01) ==
LOC: ORPAIN 09:51
PROVIDERS: ATTEND Anesthesiology
DX: M54.16 Radiculopathy, lumbar region (principal); Z78.0 Asymptomatic menopausal state
CPT/HCPCS: 64483; 64484; J2250; J1100; J2001; J3010; Q9966; 99152

== ENCOUNTER → 2021-06-13 | Outpatient (CLI) | payer BC ==
[2021-06-13 13:19] VITALS: BP 143/82; PULSE 89; RESP 18; TEMP 98.1
--- NOTE | 2021-06-13 13:30 | P.PAINPG ---
Subjective Progress Note Date: 06/13/21 This is from office visit for this 56 years old female with a chronic history of severe low back pain with radiation to the left lower extremity hx lumbar radiculopathy and lumbar disc herniation and lumbar foraminal stenosis and lumbar spondylosis with lumbar facet arthropathy, recently we have done left side transforaminal epidural steroid injection at L2-3 and L3 4x2 Patient mention she had good pain relief only for about 3-4 days after both injections. Pain is currently located in the low back with radiation into bilateral lower extremities worsen the left side associated with numbness and tingling. She also endorses significant numbness and tingling in her feet. She has a appointment with Dr. Jeffers a month to Discuss further options. she is able to ambulate, she denies any fever or night sweats. She denies any change in the bowel movement or urination Objective - Exam Physical Examinations : -Constitutiona : Cooperative , not in acute distress . - neurologic : Cranial nerve II to XII intact , no focal neurological deffecit . -psychatric : alert , oriented X 3 , appropriate affect , intact judgment and insight . -Lymphatic : no Lymphadenopathy . - musculoskeltal : Lumber spine moter stegnth lower extremities ,thigh and legs 5/5 Right side , 5/5 Left side deep tendon reflexes : normal Knee Jerk , normal ankle Jerk lumber facet Loading Test = negative Right , positive Left Range of motion of the lumbar spine Flexion 30 degrees, extension 10 degrees strait leg raising test = positive at 30 degree on the left side and is negative on the right side Fabere test= negative Right , and positive LT . Sever tenderness over the Sacroiliac joint on the Left side MRI of the lumbar spine and foraminal stenosis and lumbar degenerative disc disease and lumbar disc herniation and lumbar spondylosis with facet arthropathy Assessment and Plan Plan: Assessment and plan=1-lumbar radiculopathy. 2-lumbar foraminal stenosis. 3-lumbar degenerative disc disease. 4-lumbar spondylosis and lumbar facet arthropa thy. 5-lumbar disc herniation. At this time her procedures are not helped her significantly so I will refer her back to her surgeon. Given her neuropathic pain I will start her on Lyrica 75 mg twice a day, telling her to take it only once at night for the first week. She does have a listed ALLERGY to gabapentin and ALLERGY was that she felt somewhat sleepy and sick, I mentioned that this is a common side effect of these medications and if she has any concerns or issues with Lyrica to please stop the medication and give us a call. I have spent 26 minutes on patient care today. The time was used to review the medical records including relevant urine studies and prescription history, review of the available imaging, evaluation and examination of the patient, coordination of care with the medical staff and if applicable referring physicians, as well as creation of the medical record. - PQRS measures = - Patient's medications are documented in the chart. -Tobacco use is negative and counseling.Given. -Patient's has not received pneumococcal vaccine. -Advanced care planning discussed, patient not eligible. -Opiate contract not signed. -Pain positive and follow-up visit/procedure is scheduled. -Patient's blood pressure measured [145/82 ] , and documented in the record ,and patient will follow up with the primary care. -Patient's weight was measured and body mass index [ ] above the normal limits and counseling was done. and patient instructed to follow-up with the primary care physician. -Patient was not identified as an unhealthy alcohol user PQRS Measure Charge Sheet PQRS Narrative: Smoking Status Current every day smoker Pain Intensity [Lower Back] 7 Scale Used Numeric (1 - 10) Home Medications: Ambulatory Orders HYDROcodone/APAP 7.5-325MG [[place] 7.5-325] 1 tab PO Q4H PRN 03/04/16 Levothyroxine Sodium [Synthroid] 50 mcg PO DAILY 03/05/16 Cyclobenzaprine [Flexeril] 10 mg PO HS 10/03/17 Levothyroxine Sodium [Synthroid] 200 mcg PO DAILY 10/03/17 Aspirin EC [Ecotrin] 325 mg PO HS 11/03/17 Galcanezumab-Gnlm [Emgality Syringe] 120 mg SQ Q30D 05/15/21 Pregabalin [Lyrica] 75 mg PO BID 30 Days #60 cap 06/13/21 Controlled Substance Measures - Controlled Substance Measures Is patient prescribed a controlled substance at discharge?: Yes When asked, does pt state using other controlled substances?: No If prescribed controlled substance>3 days was MAPS reviewed?: Yes If Rx opioid, was Start Talking consent form obtained?: No If opioid is for acute pain is fill amount 7 days or less?: No Was information provided regarding opioid addiction?: No
== END | disposition home or self-care (01) ==
LOC: PNWHC3 13:04
PROVIDERS: ATTEND Anesthesiology
DX: M48.061 Spinal stenosis, lumbar region without neurogenic claudication (principal); M51.16 Intervertebral disc disorders with radiculopathy, lumbar region; M47.896 Other spondylosis, lumbar region; M51.26 Other intervertebral disc displacement, lumbar region
CPT/HCPCS: 99211

== ENCOUNTER → 2021-08-04 | Outpatient (CLI) | payer BC ==
--- NOTE | 2021-08-04 17:11 | MR ---
EXAMINATION TYPE: MR cspine/lspine wo/w con DATE OF EXAM: 08/04/2021 COMPARISON: MR scan lumbar spine 01/10/2021 HISTORY: Neck/Low back pain, leg pain,myelopathy CONTRAST: Standard multiplanar, multisequence MRI departmental protocol utilizing 9 mL intravenous Gadavist dashawn olinium contrast. Cervical spine Cervical vertebra have normal alignment. There is some degenerative disc space narrowing at C4-5 and C5-6. There is posterior spur formation at C4-5 and C5-6 with small disc bulging. There is no signifi cant spinal stenosis. Spinal canal measures 8.5 mm at C5-6 which is the narrowest point. Cervical spi nal cord has normal signal pattern. There is no edema. Brainstem appears intact. There is no cervical compression fracture. There is no cervical paraspinal mass. There is some uncovertebral spurring and bilateral C4-5 neural foraminal mild impingement. Contrast images show no pathologic enhancement. IMPRESSION: Mild spondylotic changes in the cervical spine at C4-5 and C5-6. No significant spinal stenosis. No f racture. No sign of instability. Lumbar spine Lumbar vertebra have normal alignment. There is mild uniform narrowing of lumbar disc spaces. There i s developmentally adequate spinal canal. There are small posterior disc bulges at L2-3 and L3-4. Ther e is a T12-L1 mild posterior disc herniation. There is no lumbar spinal stenosis. The lumbar neural f oramina appear fairly well-maintained. I see no focal bone destruction. There is no compression fract ure. There is no lumbar paraspinal mass. Sacroiliac joints are intact. Contrast images show no pathol ogic enhancement. IMPRESSION: Mild multilevel posterior disc bulging and herniation. No spinal stenosis. No fracture. No change compared to old exam.
== END | disposition home or self-care (01) ==
LOC: RADMRIMAIN 14:27
PROVIDERS: ATTEND Orthopaedic Surgery
DX: M51.26 Other intervertebral disc displacement, lumbar region (principal); M51.06 Intervertebral disc disorders with myelopathy, lumbar region; M51.04 Intervertebral disc disorders with myelopathy, thoracic region; M50.00 Cervical disc disorder with myelopathy, unspecified cervical region
CPT/HCPCS: 72156; 72158; A9585

== ENCOUNTER → 2021-08-06 | Outpatient (CLI) | payer BC ==
--- NOTE | 2021-08-08 08:14 | MM ---
Reason for exam: screening (asymptomatic). Last mammogram was performed 2 years and 11 months ago. History: Patient is postmenopausal. Physical Findings: A clinical breast exam by your physician is recommended on an annual basis and results should be correlated with mammographic findings. MG Screening Mammo w CAD Bilateral CC and MLO view(s) were taken. Prior study comparison: August 31, 2018, left breast MG work up mamm w CAD LT. August 24, 2018, bilateral MG screening mammo w CAD. April 06, 2015, bilateral MG screening mammo w CAD. There are scattered fibroglandular densities. Asymmetry superior left MLO unchanged from 2018. Stable subareolar focal asymmetry on the right. No significant changes when compared with prior studies. ASSESSMENT: Benign, BI-RAD 2 RECOMMENDATION: Routine screening mammogram of both breasts in 1 year.
== END | disposition home or self-care (01) ==
LOC: RADMAMWWP 14:55
PROVIDERS: ATTEND Family Medicine
DX: Z12.31 Encounter for screening mammogram for malignant neoplasm of breast (principal)
CPT/HCPCS: 77067

== ENCOUNTER → 2021-08-07 | Outpatient (CLI) | payer BC ==
--- NOTE | 2021-08-07 15:12 | MR ---
EXAMINATION TYPE: MR thoracic spine wo/w con DATE OF EXAM: 08/07/2021 COMPARISON: None HISTORY: 56-year-old female Intervertebral disc disorders with myelopathy. M51.04. Pain Technique: Multiplanar, multisequence images of the thoracic spine were obtained before and after adm inistration of 9 mL intravenous Gadavist gadolinium contrast. FINDINGS: Sagittal T2 counting sequence: Mild/moderate degenerative disc disease mid to lower cervical spine. D isc osteophyte complexes at C4-C5 and C5-C6 appear to cause mild narrowing of the spinal canal. Abutm ent at both of these levels and slight flattening of the ventral cord at C4-C5. Moderate degenerative disc disease mid to lower thoracic spine with desiccated mildly narrowed discs are endplate irregularities also present. No suspicious bone marrow placement. Multiple small endplat e Schmorl's nodes. Small central posterior disc protrusion at T5-T6, T6-T7, and T7-T8. No large focal disc herniation or significant spinal canal stenosis. Alignment is maintained. Normal course, caliber, signal intensity of the thoracic spinal cord. No abnormal enhancement within the spinal canal. Scattered facet arthropathy. On the right, changes result in variable mild neuroforaminal stenoses es pecially upper and lower thoracic spine. Mild on the left at T1-T2 and T2-T3. IMPRESSION: 1. Moderate degenerative disc disease especially in the mid and lower thoracic spine with desiccated, narrowed disks and endplate irregularity along with small Schmorl's nodes. 2. Tiny disc protrusions at a few levels. No large focal disc herniation or significant spinal canal stenosis. 3. Variable mild neural foraminal narrowing secondary to facet arthropathy. On the right, in the uppe r and lower thoracic spine and on the left, in the upper thoracic spine. 4. Degenerative disc disease mid to lower cervical spine. Disc osteophyte complexes at C4-C5 and C5-C 6 cause mild narrowing of the spinal canal. There is abutment of the ventral cord at both of these le vels and slight flattening of the ventral cord at C4-C5. 5. No abnormal enhancement within the spinal canal or myelopathic cord signal change.
== END | disposition home or self-care (01) ==
LOC: RADMRIMAIN 11:25
PROVIDERS: ATTEND Orthopaedic Surgery
DX: M48.04 Spinal stenosis, thoracic region (principal); M46.94 Unspecified inflammatory spondylopathy, thoracic region
CPT/HCPCS: 72157; A9585

== ENCOUNTER 2021-09-06 11:52 | Emergency (ER) | payer BC ==
[2021-09-06 13:25] VITALS: BP 154/101; PULSE 79; RESP 18; TEMP 98.4
[2021-09-06] MEDS ORDERED: ORPHENADRINE 30 MG/ML 2 ML VIAL IM STA (15:28)
[2021-09-06] MEDS ORDERED: KETOROLAC 15 MG/ML 1 ML VIAL IM STA (15:28)
--- NOTE | 2021-09-06 16:30 | ED ---
General Adult HPI - General Chief complaint: Back Pain/Injury Stated complaint: Back Pain Time Seen by Provider: 09/06/21 15:19 Source: patient Mode of arrival: ambulatory Limitations: no limitations - History of Present Illness Initial comments: 56-year-old female presents to the emergency room for acute on chronic back pain. Patient states she has chronic back pain that has been persistent for 12 years. She has spinal stenosis. She sees pain management and takes Mcalister 7.5 at home. Patient is following up with Dr. Jeffers. She has an appointment in 3 days. Patient states last night the pain worsened at work. She states she cannot stand up straight. Denies bladder or bowel changes, saddle anesthesia, weakness of the legs, or fevers. Patient states she called Dr. Jeffers's office and they recommended she come to the emergency room in control.Patient has no other complaints at this time including shortness of breath, chest pain, abdominal pain, nausea or vomiting, headache, or visual changes. - Related Data Home Medications Medication Instructions Recorded Confirmed HYDROcodone/APAP 7.5-325MG [Mcalister 1 tab PO Q4H PRN 03/04/16 06/08/21 7.5-325] Levothyroxine Sodium [Synthroid] 50 mcg PO DAILY 03/05/16 06/08/21 Cyclobenzaprine [Flexeril] 10 mg PO HS 10/03/17 06/08/21 Levothyroxine Sodium [Synthroid] 200 mcg PO DAILY 10/03/17 06/08/21 Aspirin EC [Ecotrin] 325 mg PO HS 11/03/17 06/08/21 Galcanezumab-Gnlm [Emgality 120 mg SQ Q30D 05/15/21 06/08/21 Syringe] Previous Rx's Medication Instructions Recorded Pregabalin [Lyrica] 75 mg PO BID 30 Days #60 cap 06/13/21 Allergies Allergy/AdvReac Type Severity Reaction Status Date / Time gabapentin Allergy Rash/Hives Verified 09/06/21 13:25 Review of Systems ROS Statement: Those systems with pertinent positive or pertinent negative responses have been documented in the HPI. ROS Other: All systems not noted in ROS Statement are negative. Past Medical History Past Medical History: GERD/Reflux, Hyperlipidemia, Neurologic Disorder, Thyroid Disorder Additional Past Medical History / Comment(s): 2016 Possible TIA/CVA or migraine with double vision, currently being tested for multiple sclerosis, chronic low back pain-L1,2,3, frequent migraines, hypothyroid. History of Any Multi-Drug Resistant Organisms: None Reported Past Surgical History: Section, Orthopedic Surgery Additional Past Surgical History / Comment(s): BONE SPURS REMOVED FROM BILAT SHOULDERS, C/S x2, PAIN CLINIC PROCEDURES Past Anesthesia/Blood Transfusion Reactions: No Reported Reaction Past Psychological History: No Psychological Hx Reported Smoking Status: Current every day smoker Past Alcohol Use History: Occasional Past Drug Use History: Marijuana - Past Family History Father History Unknown: Yes Family Medical History: Diabetes Mellitus Additional Family Medical History / Comment(s): Father lived to be 78yrs old. Mother History Unknown: Yes Family Medical History: COPD, Respiratory Disorder Additional Family Medical History / Comment(s): Mother of respiratory failure at the age of 69yrs. General Exam Limitations: no limitations General appearance: alert, in no apparent distress Head exam: Present: atraumatic Eye exam: Present: normal appearance, PERRL, EOMI. Absent: scleral icterus, conjunctival injection ENT exam: Present: normal exam, mucous membranes moist Neck exam: Present: normal inspection, full ROM. Absent: tenderness Respiratory exam: Present: normal lung sounds bilaterally. Absent: respiratory distress, wheezes Cardiovascular Exam: Present: regular rate, normal rhythm, normal heart sounds GI/Abdominal exam: Present: soft, normal bowel sounds. Absent: distended, tenderness Extremities exam: Present: normal capillary refill (Capillary refill less than 2 seconds, DP pulse 2+ bilateral lower extremities), other (Strength 5 out of 5 bilateral lower extremities) Neurological exam: Present: alert Course Vital Signs 09/06/21 13:22 Temperature 98.4 F Pulse Rate 79 Respiratory 18 Rate Blood Pressure 154/101 O2 Sat by Pulse 98 Oximetry Medical Decision Making - Medical Decision Making Patient presents for acute on chronic back pain. Musculoskeletal in nature. History of spinal stenosis, hurts with standing up straight . No red flag symptoms. Patient given Toradol and Norflex and had significant improvement in symptoms. She is currently sleeping, resting comfortably. Patient is okay for discharge home. She will return here for any worsening symptoms. She will follow-up at her orthopedic spine appointment in 3 days. Disposition Clinical Impression: Mechanical back pain Disposition: HOME SELF-CARE Condition: Good Instructions (If sedation given, give patient instructions): Acute Low Back Pain (ED) Additional Instructions: Continue to take your pain medication at home. Follow-up with your doctor. Return to the emergency room for any worsening symptoms. Is patient prescribed a controlled substance at d/c from ED?: No Referrals: Kim Osborne MD [Primary Care Provider] - 1-2 days Dao Jeffers DO [Doctor of Osteopathic Medicine] - 1-2 days Time of Disposition: 16:31
== END 2021-09-06 17:05 | disposition home or self-care (01) ==
LOC: EC 11:52
DX: M54.9 Dorsalgia, unspecified (principal); F17.200 Nicotine dependence, unspecified, uncomplicated; E03.9 Hypothyroidism, unspecified; Z88.8 Allergy status to other drugs, medicaments and biological substances; Z79.890 Hormone replacement therapy; Z79.82 Long term (current) use of aspirin; Z86.73 Personal history of transient ischemic attack (TIA), and cerebral infarction without residual deficits
CPT/HCPCS: 96372; 99283

== ENCOUNTER 2021-10-04 09:28 | Day surgery (SDC) | payer BC ==
[2021-10-03 09:19] VITALS: BMI 31.9
[2021-10-04 09:53] VITALS: TEMP 98.1
[2021-10-04] MEDS: LACTATED RINGERS 1,000 ML IV SCH ×2 (09:58→09:59)
[2021-10-04] MEDS ORDERED: methylPREDNISolone ACETATE 40 MG/ML 1 ML VIAL ONE (10:01)
[2021-10-04] MEDS ORDERED: IOPAMIDOL M200 10 ML VIAL ONE (10:01)
--- NOTE | 2021-10-04 10:22 | P.PCN ---
Date of Procedure: 10/04/21 Procedure(s) Performed: PREOPERATIVE DIAGNOSIS: 1-Lumbar radiculopathy . 2-lumbar degenerative disc disease. 3-lumbar spondylosis with lumbar facet arthropathy POSTOPERATIVE DIAGNOSIS: Same as preoperative diagnoses. PROCEDURE 1. Transforaminal epidural steroid injection under fluoroscopic guidance at left L2-3 ,L3-4 level. (Fluoroscopy images stored on file in the radiology Department ) 2. Lumbar epidurogram . ANESTHESIA: Local with 1% lidocaine 3 ml only . EBL: Minimal PROCEDURE INDICATION: The patient with low back pain and radiculopathy symptoms unresponsive to conservative treatment. PROCEDURE DESCRIPTION / TECHNIQUE: The patient was seen and identified in the preoperative area. Risks, benefits, complications, and alternatives were discussed with the patient. The patient agreed to proceed with the procedure and signed the consent. IV was started, and vital signs were stable. Patient was taken to the OR and time out was completed. The patient was placed in the prone position on procedure table and a pillow was placed under the abdomen to reduce lumbar lordosis. The lumbosacral area was prepped and draped in the usual sterile fashion. Critical pause was taken. Vital signs were closely monitored during the procedure. Conscious sedation was used during the procedure to decrease patient s anxiety. Using oblique fluoroscopy, the chin of the ``Roberto dog at L2-3 level was identified, and the skin and deeper tissues just below was localized with 1% lidocaine. Subsequently, a 22-gauge 5-inch spinal needle was advanced under a tunneled view fluoroscopic guidance just underneath the chin of the ``Roberto dog at the left L2-3 Under lateral fluoroscopy, the needle was then advanced to the posterior border of the interforaminal space. After negative aspiration of CSF and blood and with no paresthesias, 1 mL Isovue 200 contrast dye was injected excellent epidurogram and outlining of the nerve root Subsequently, 3 mL of block solution containing 40 mg Depo-Medrol and 2 mL of 0.9% normal saline PF was injected. Needle was removed and the same procedure was repeated at the left L3-4 level (s). At the end of the procedure, skin was cleansed, and bandages were applied. COMPLICATIONS:none DISPOSITION / PLANS: The patient was placed in a supine position and transferred to the recovery area in a stable condition for observation. There was no evidence of lower extremity motor or sensory deficit after the procedure. Patient was discharged from the recovery room after meeting discharge criteria. Home discharge instructions were given to the patient by the staff. The patient was reexamined prior to discharge.
[2021-10-04] MEDS ORDERED: IV FLUID CONTINUATION 1,000 ML IV ONE (10:24)
[2021-10-04 10:26] VITALS: RESP 14
--- NOTE | 2021-10-04 10:36 | FL ---
EXAMINATION TYPE: FL guided pain mgmt statistic DATE OF EXAM: 10/04/2021 HISTORY: Fluoroscopy time 8 seconds of fluoroscopy provided. IMPRESSION: 1. Fluoroscopy time.
[2021-10-04 10:39] VITALS: BP 138/88; PULSE 75
== END 2021-10-04 10:51 | disposition home or self-care (01) ==
LOC: ORPAIN 09:28
PROVIDERS: ATTEND Specialist
DX: M51.16 Intervertebral disc disorders with radiculopathy, lumbar region (principal); M47.26 Other spondylosis with radiculopathy, lumbar region; Z88.8 Allergy status to other drugs, medicaments and biological substances; Z78.0 Asymptomatic menopausal state; Z79.82 Long term (current) use of aspirin
CPT/HCPCS: 64483; 64484; J1030; Q9966

== ENCOUNTER 2021-12-18 18:22 | Emergency (ER) | payer BC ==
[2021-12-18 19:14] VITALS: BP 163/106; PULSE 87; RESP 16; TEMP 98.2
--- NOTE | 2021-12-18 20:43 | ED ---
Back Pain HPI - General Chief Complaint: Back Pain/Injury Stated Complaint: back pain Time Seen by Provider: 12/18/21 20:35 Source: patient, RN notes reviewed Limitations: no limitations - History of Present Illness Initial Comments: This is a pleasant 56-year-old female who presents to emergency complaining of low back pain. Patient states she has chronic low back pain which she's had for many years. Patient states she is scheduled for cervical spine surgery by Dr. Jeffers and in a few weeks. Patient states that she is on [place] at home. Patient states that her lower back is bothering him more than usual. She went to her primary care doctor's office yesterday and was seen. Patient denies any problems with saddle anesthesia. No urinary or bowel complaints. She states that she has suffered from chronic constipation secondary to [place]. No fever or chills. No direct trauma. No radiation of pain into the legs. Patient's pain is sharp, exacerbated by movement, patient is able to ambulate. No headache, no fever or chills, no changes in vision or hearing, no sore throat or difficulty with speech, no neck pain, no chest pain or shortness of breath, no abdominal pain, no nausea or vomiting, , no numbness or tingling, no extremity pain, no skin rashes or lesions. MD Complaint: back pain - Related Data Home Medications Medication Instructions Recorded Confirmed HYDROcodone/APAP 7.5-325MG [[place] 1 tab PO Q6H PRN 03/04/16 10/03/21 7.5-325] Levothyroxine Sodium [Synthroid] 50 mcg PO DAILY 03/05/16 10/03/21 Cyclobenzaprine [Flexeril] 10 mg PO HS 10/03/17 10/03/21 Levothyroxine Sodium [Synthroid] 200 mcg PO DAILY 10/03/17 10/03/21 Aspirin EC [Ecotrin] 325 mg PO HS 11/03/17 10/03/21 Galcanezumab-Gnlm [Emgality 120 mg SQ Q30D 05/15/21 10/03/21 Syringe] Butalbital/Acetaminophen 1 - 2 tab PO Q4H PRN 09/06/21 10/03/21 [Butalbital/Acetaminophen 50-300 Tab] Pregabalin [Lyrica] 150 mg PO BID 09/06/21 10/03/21 Allergies Allergy/AdvReac Type Severity Reaction Status Date / Time gabapentin Allergy Rash/Hives Verified 12/18/21 19:14 Review of Systems ROS Statement: Those systems with pertinent positive or pertinent negative responses have been documented in the HPI. ROS Other: All systems not noted in ROS Statement are negative. Past Medical History Past Medical History: GERD/Reflux, Hyperlipidemia, Neurologic Disorder, Thyroid Disorder Additional Past Medical History / Comment(s): 2015 Possible TIA/CVA or migraine with double vision, currently being tested for multiple sclerosis, chronic low back pain-L1,2,3, frequent migraines, hypothyroid, recent sinus infection now resolved History of Any Multi-Drug Resistant Organisms: None Reported Past Surgical History: Section, Orthopedic Surgery Additional Past Surgical History / Comment(s): BONE SPURS REMOVED FROM BILAT SHOULDERS, C/S x2, PAIN CLINIC PROCEDURES Past Anesthesia/Blood Transfusion Reactions: No Reported Reaction Past Psychological History: No Psychological Hx Reported Smoking Status: Former smoker Past Alcohol Use History: None Reported Past Drug Use History: None Reported - Past Family History Father History Unknown: Yes Family Medical History: Diabetes Mellitus Additional Family Medical History / Comment(s): Father lived to be 78yrs old. Mother History Unknown: Yes Family Medical History: COPD, Respiratory Disorder Additional Family Medical History / Comment(s): Mother of respiratory failure at the age of 69yrs. General Exam - General Exam Comments Initial Comments: 56-year-old female in mild distress from back pain. Does not appear to be ill or toxic. Cranial nerves II through XII grossly intact. No evidence of cauda equina syndrome. Gait is guarded, slow, and timi but is adequate. Limitations: no limitations General appearance: alert, in distress Head exam: Present: atraumatic, normocephalic, normal inspection Eye exam: Present: normal appearance, PERRL, EOMI. Absent: scleral icterus, conjunctival injection, periorbital swelling ENT exam: Present: normal exam, mucous membranes moist Neck exam: Present: normal inspection. Absent: tenderness, meningismus, lymphadenopathy Respiratory exam: Present: normal lung sounds bilaterally. Absent: respiratory distress, wheezes, rales, rhonchi, stridor Cardiovascular Exam: Present: regular rate, normal rhythm, normal heart sounds. Absent: systolic murmur, diastolic murmur, rubs, gallop, clicks GI/Abdominal exam: Present: soft, normal bowel sounds. Absent: distended, tenderness, guarding, rebound, rigid Extremities exam: Present: normal inspection, full ROM, normal capillary refill. Absent: tenderness, pedal edema, joint swelling, calf tenderness Back exam: Present: normal inspection, tenderness (Bilateral lumbar paraspinal), paraspinal tenderness, other (Straight leg raise negative, range of motion limited by pain. No erythema. No break in skin integrity. No rash. No saddle anesthesia). Absent: full ROM, CVA tenderness (R), CVA tenderness (L), muscle spasm, vertebral tenderness, rash noted Neurological exam: Present: alert, oriented X3, CN II-XII intact, normal gait, motor sensory deficit, reflexes normal. Absent: altered Psychiatric exam: Present: normal affect, normal mood Skin exam: Present: warm, dry, intact, normal color. Absent: rash Course Vital Signs 12/18/21 19:12 Temperature 98.2 F Pulse Rate 87 Respiratory 16 Rate Blood Pressure 163/106 O2 Sat by Pulse 96 Oximetry Medical Decision Making - Medical Decision Making Vision presents with acute exacerbation chronic low back pain. No evidence of cauda equina syndrome. No evidence of bowel or bladder problems. Patient has [place] at home. He did agree to give the patient pain medication here to take the edge off. Patient can follow-up with her regular physician tomorrow for reevaluation. No other red flags noted. Patient concurs with the treatment plan, all questions answered. Patient was found to be hypertensive. We did discuss this. Patient states she will follow-up with her regular physician tomorrow. No history of hypertension. Patient was told to return to the ER for any signs or symptoms worsen. Told to return immediately if any other problems arise. All questions answered. Treatment plan discussed. Patient in agreement Every effort has been made to ensure accuracy of this dictation. However, due to the limitations of electronic medical records and dictation devices, errors in charting still occur. No indication for imaging at this time. Patient can follow-up with her back specialist as planned. Disposition Clinical Impression: Acute exacerbation of chronic low back pain, Elevated blood pressure reading Disposition: HOME SELF-CARE Condition: Good Instructions (If sedation given, give patient instructions): Hypertension (ED), Chronic Back Pain (DC) Additional Instructions: Follow-up with your regular physician as directed. Return to the ER immediately if any symptoms worsen, new symptoms arise, or any other problems develop. Take your home pain medication as directed-- light walking. Heat 20 minutes on and off for times per day to the lower back. Is patient prescribed a controlled substance at d/c from ED?: No Referrals: Kim Osborne MD [Primary Care Provider] - 1-2 days Time of Disposition: 21:24
[2021-12-18] MEDS ORDERED: MORPHINE SULFATE 4 MG/ML SYRINGE IV STA (20:52)
[2021-12-18] MEDS ORDERED: ORPHENADRINE 30 MG/ML 2 ML VIAL IM STA (20:52)
[2021-12-18] MEDS ORDERED: ACETAMINOPHEN TAB 500 MG TAB PO STA (20:52)
[2021-12-18] MEDS ORDERED: MORPHINE SULFATE 4 MG/ML SYRINGE IM STA (20:57)
== END 2021-12-18 21:41 | disposition home or self-care (01) ==
LOC: EC 18:22
DX: G89.29 Other chronic pain (principal); I10 Essential (primary) hypertension; M54.50 Low back pain, unspecified; E07.9 Disorder of thyroid, unspecified; Z87.891 Personal history of nicotine dependence; Z79.890 Hormone replacement therapy; Z88.9 Allergy status to unspecified drugs, medicaments and biological substances
CPT/HCPCS: 96372; 99283; J2270; J2360

== ENCOUNTER 2022-02-12 05:48 | Observation (INO) | payer BC ==
[2022-01-25 12:05] VITALS: BMI 31.9
[~2022-02-12 05:48] MED LIST changes: +ACETAMINOPHEN TAB 500 MG TAB PO PRN; -LACTATED RINGERS 1,000 ML IV SCH; +ONDANSETRON 4 MG/2 ML VIAL IVP PRN; +TRANEXAMIC ACID IN NACL,ISO-OS 1,000 MG in SALINE 1 100ML.BAG IVPB PRN
[2022-02-12] MEDS ORDERED: LIDOCAINE 1% (10MG/ML) FOR IV START INTRADERMA PRN (05:54)
--- NOTE | 2022-02-12 06:20 | P.HPOR ---
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 Trauma or injury No Work-Related No Pain description sharp Location posterior diffuse Activity Modification yes, unable to stand or ambulate for extended periods of time. Hand Dominance right DOI: Acute on chronic degeneration. DOS: None. TREATMENTS COMPLETED: 6 weeks of PT completed? Yes How many sessions? 12 Did it help? No Physician directed home exercise completed? yes , with no improvements. Medications yes List: Medrol dose butch, HYDROcodone without relief of symptoms. Flexeril and Lyrica without any improvements. Alternative interventions Chiropractic?: No Brace: No Injections Yes (Transforaminal and MICHAEL) How many? 2 of each Did they help? No RFA: No SUBJECTIVE: Today the patient presents to the office for a pre-operative review of her cervical spine. Since the time of the last appointment she reports no significant changes to her symptoms and is complaining of continued dysfunction and inability to complete daily tasks due to pain. She complains of continued poor coordination and fine motor skills and cannot complete most tasks involving dexterity due to this. Her pain is quite acute posteriorly and radiating into the bilateral upper extremities. Otherwise she denies trialing any new treatment modalities but overall reports that she has failed to improved with all modalities completed. All risks and benefits of the surgery are discussed and the patient wishes to proceed with the planned C4-C6 ACDF. Patient continues to deny any bladder or bowel retention/incontinence, no perineal numbness/tingling, and ambulates independently. Of note, the patient does come in today complaining of crushing chest pain over the last 3 days along with difficulty breathing. Patient does deny any pain radiating into the left shoulder or in between the shoulder blades. Additionally she denies any family heart disease or prior myocardial infarctions. We did direct the patient to follow up with her PCP KIET as well as go to the emergency room should her symptoms persist into the evening. HPI: The patient last presented to the office on 12/13/2021 for a recheck of her lumbar spine. Since the time of the last appointment the patient notes that her symptoms have continued to persist. She denies any discernable changes and is having continued dysfunction. Patient cannot complete many of her daily tasks and does note that she was sent home from work yesterday as she could not complete her tasks. Overall she reports that she has failed to improve with all conservative modalities trialed thus far and is ready to discuss with operative intervention. Otherwise she continues to deny any bladder or bowel issues, no perineal numbness/tingling, and ambulates without the use of any aides. The patient last presented to the office on 11/05/2021 for a recheck of her cervical and lumbar spine. Since the time of the last appointment the patient notes that her symptoms have remained the same. She reports trialing no new treatments since the time of the last appointment. Overall she has failed to improve since the time of the last appointment and has not improved with any conservative treatments trialed thus far. Patient reports continued difficulty with completing many of her daily tasks due to the severity of her symptoms. She notes that she is ready to start discussing surgical options pertaining to her cervical spine. Otherwise she denies any bladder or bowel issues, no perineal numbness/tingling, and ambulates without the use of any aides. Ms. Newton last presented to the office on 09/10/2021 for a follow up evaluation of her cervical and low back. Since the time of the patient's last appointment she notes that she has continued to not improve. Patient reports continued left sided lumbar pain that radiates into the left lower extremity. Her pain does worsen with standing and weightbearing. Overall she has found no change to her symptomology with conservative treatments tried thus far. Otherwise the patient did present to the [facility] ER recently for severe back pain but denies having any treatments for this. Patient denies any bladder or bowel issues, no perineal numbness/tingling, and presents to the office without the use of any ambulatory aides. Ms. Newton was last seen on 08/13/2021 via televisit regarding her MRI. At that time she was Still having pain in her legs b/l more so on Lt side that seems to radiate down the front of her leg past her knee. She has pain in her groin off and on and gets shooting pains down the front of her leg in past her knee on occasion. She had an episode yesterday and it sent her home from work it was so painful. It resolved but she is still having issues. She also has issues with balance, gait and dropping objects. She has b/l UE symptoms as well with radicular type symptoms into her arms and shoulders. She states no recent trauma at this time. Patient was previously seen on 07/09/2021 for a follow up evaluation of her low back. She notes that since the time of the last appointment she has had two more injections, this time MICHAEL. With these she states that she has found no relief of her symptoms. Overall she feels that her symptoms are worsening. More specifically she notes that she is having increased "foot spasms" bilaterally along with intermittent urinary difficulty with episodes of incontinence. Her back pain and left lower extremity radiculopathy (thigh primarily) has not improved since the last visit. She states that due to the severity of her pain she is unable to complete most of her daily functions along with an inability to sleep consistently. She is quite concerned about her symptomology at this time. Patient has failed to improve with PT, medications, or injections. She presents to the office without the use of ambulatory aides. Patient denies any history of heart issues or diabetes. Ms. Newton was previously seen on 04/02/2021 regarding low back pain for over 10 years. Progressively been getting worse over the last couple of years. At the time of her last appointment she was following up after getting lumbar spine injections. She states that the first injection did not really help her at all and she still having left lower extremity radiculopathy and pain. She was having difficulty with ambulation secondary to this. She denied any bowel or bladder issues no peroneal numbness or tingling at the time of the last appointment. She did have an appointment scheduled for follow-up with pain management with possible second injection. The patients' past social, medical, family, surgical history, as well as review of systems, have been reviewed. Please refer to the Neurosurgery History and Physical form that has been scanned in to our electronic medical record system. 14 points review of systems completed and as stated in HPI, all other systems reviewed are negative. Review of Systems 14 points review of systems completed and as stated in HPI, all other systems reviewed are negative. Past Medical History Past Medical History: GERD/Reflux, Hyperlipidemia, Neurologic Disorder, Osteoarthritis (OA), Thyroid Disorder Additional Past Medical History / Comment(s): 2015 Possible TIA/CVA or migraine with double vision, currently being tested for Multiple Sclerosis, chronic low back pain-L1-2-3, frequent migraines, hypothyroid. History of Any Multi-Drug Resistant Organisms: None Reported Past Surgical History: Section, Orthopedic Surgery Additional Past Surgical History / Comment(s): BONE SPURS REMOVED FROM BILATERAL SHOULDERS, Section X2, PAIN CLINIC PROCEDURES. Past Anesthesia/Blood Transfusion Reactions: No Reported Reaction Additional Past Anesthesia/Blood Transfusion Reaction / Comment(s): Woke up during shoulder surgery. Past Psychological History: No Psychological Hx Reported Smoking Status: Former smoker Past Alcohol Use History: Rare Additional Past Alcohol Use History / Comment(s): Started smoking in 1995 and [id number] cigarettes a day, quit 4 months ago. Past Drug Use History: Marijuana Additional Drug Use History / Comment(s): Medical marijuana on occasion in edible form for back pain. Aware no use 24 hrs prior to procedure. - Past Family History Father History Unknown: Yes Family Medical History: Diabetes Mellitus Additional Family Medical History / Comment(s): Father lived to be 78 yrs old. Mother History Unknown: Yes Family Medical History: COPD, Respiratory Disorder Additional Family Medical History / Comment(s): Mother of respiratory failure at the age of 69. Medications and Allergies Home Medications Medication Instructions Recorded Confirmed Type HYDROcodone/APAP 7.5-325MG [[place] 1 tab PO Q6H PRN 03/04/16 02/08/22 History 7.5-325] Levothyroxine Sodium [Synthroid] 50 mcg PO DAILY 03/05/16 02/08/22 History Cyclobenzaprine [Flexeril] 10 mg PO HS PRN 10/03/17 02/08/22 History Levothyroxine Sodium [Synthroid] 200 mcg PO DAILY 10/03/17 02/08/22 History Aspirin EC [Ecotrin] 325 mg PO DAILY 11/03/17 02/08/22 History Butalbital/Acetaminophen 1 - 2 tab PO Q4H PRN 09/06/21 02/08/22 History [Butalbital/Acetaminophen 50-300 Tab] Pregabalin [Lyrica] 150 mg PO BID 09/06/21 02/08/22 History Allergies Allergy/AdvReac Type Severity Reaction Status Date / Time gabapentin Allergy Rash/Hives Verified 02/08/22 12:51 Physical Examination Osteopathic Statement: *. No significant issues noted on an osteopathic structural exam other than those noted in the History and Physical/Consult. PHYSICAL EXAMINATION: General: Awake, alert, appropriate for age, in no acute distress. HEENT: No unusual neck masses around region of lateral neck triangle, thyroid, supraclavicular groove Heart: Regular rate and rhythm, normal S1, S2 and no murmur/gallop. Lungs: Clear to auscultation bilaterally with no use of accessory muscles. Extremities: Skin warm and dry without acute lesions, coloration, temperature, skin intact, no tenderness or erythema Integument: Hairy patches: Absent Dorsal skin dimples: Absent Cafe au lait spots: Absent Surgical incisions: No Palpation: Please see Pain drawing on Intake sheet for further detail. Midline spinal tenderness: No E6 Paralumbar tenderness: yes E6 Parathoracic tenderness: No E6 Buttocks tenderness: No E6 Special findings: No POSTURAL and MUSCULO-SKELETAL EVALUATION: Coronal Balance: NEUTRAL Recumbent testing: Patient is able to lay flat on back Sagittal Balance: NEUTRAL Shoulder Profile: LEVEL Pelvic Girdle: LEVEL Neck ROM: RESTRICTED Lumbar ROM: RESTRICTED Shoulder ROM: Symmetrical Hip ROM: Symmetrical Knee ROM: Symmetrical Hands: Normal appearance, symmetrical Feet: Normal appearance, Symmetrical VASCULAR STATUS : LEFT RIGHT Wrist Pulses INTACT INTACT Pedal Pulses (Dors. pedis & post.tibialis) INTACT INTACT Color NORMAL NORMAL Edema Absent Absent NEUROLOGIC EXAMINATION: Mental Status:Awake and alert, fully oriented, with normal attention, concentration and memory, and fluent, appropriate speech. Cranial Nerves: I: Olfactory not tested. II: Visual acuity normal, no visual field deficit noted with confrontation. III,IV: Normal pupillary reflexes & intact extraocular movements without nystagmus. V,: Intact symmetrical facial sensation. VII: Intact symmetrical facial motor movement VIII: Hearing intact. IX,X: Intact gag, swallow, & normal voice. XI: Sternocleidomastoid, trapezius function intact. XII: Tongue midline with normal movements. L'hermitte's Sign: Negative / absent Spurling'Sign: Absent bilaterally. Cubital percussion test: Absent bilaterally. Franki-Tinel sign - Carpal region: Absent bilaterally. Straight Leg Raising: Absent bilaterally. Crossed straight leg raise: negative O8 MOTOR EXAM (0-5/5, N/T) STRENGTH RIGHT LEFT Shoulder Abd (not part of the JUJU score) 5 4 Elbow Flexors 5 5 Elbow Extensor 5 5 Wrist Dorsiflexors 5 5 Finger Abductor 5 4 Real Estate Subagent 4 5 Hip Flexor (Not part of JUJU Motor score) 5 5 Knee Flexor 5 5 Knee Extensor 4 4 Ankle dorsiflexor 5 4 Ankle plantarflexion 4 4 Extensor hallucis 5 5 Muscle wasting present of the bilateral quadriceps, left worse than right Poor Coordination with UE and fine motor REFLEXES(0-4/2, NT) RIGHT LEFT Upper Extremities 2 2 Lower Extremities 2 2 Pathological Reflexes RIG HT LEFT Jeffery's Present Absent Clonus Absent Absent Babinski Absent Absent # Indicates mechanical impairment Muscle appearance: Symmetrical, without signs of atrophy or dystrophy. Rectal Tone:Deferred Normal, strong with volition control Sensory system (0-4, N/T) Test type RU ABNER RL LL Joint-Position 2 2 2 2 Vibration 2 2 2 2 Pain & LT sense 2 2 2 2 Dermatomal Deficit: C5-6 C4-5 L2-3 L4 Gait and Functional Evaluation: Ambulatory aids: Independent Romberg's test: Intact bilaterally Toe heel walk / heel-toe walk intact while maintaining satisfactory balance? yes Squatting/straightening w/o assistance to a min of 60 degree knee flexion? yes Single leg stance: intact Trendelenburg sign negative bilaterally Hand and finger dexterity intact bilaterally? No Disdiadochokinesis examination negative bilaterally? Results RADIOGRAPHIC STUDIES: XRay taken on 09/10/21 of Spine: XRay taken on 04/02/21 of Lumbar was reviewed by Dr. Welsh and indicates: 4 VIEW LUMBAR SPINE IS OBTAINED AND REVIEWED IN THE OFFICE THIS DEMONSTRATES SPONDYLOSIS l4 5 l5-s1 PERIODS WORSE AT L5-S1. tHERE IS NO INSTABILITY ON FLEXION-EXTENSION FILMS. There are no fractures dislocations or lesions noted. AP pelvis demonstrates congruent femoral acetabular joints level pelvis congruent pelvis no fracture or dislocation. Cervical MRI: C4-5 stenosis central due to disc bulge C5-6 stenosis central and foraminal due to bulge Spondylosis of both. Modic endplate changes. OC and C1-2 stable No overt myelomalacia noted. T spine MRI: Mild degenerative changes. No fracture, no lesions. No compressive lesions. Lumbar MRI: Spondylosis L5-S1. Disc degeneration L4-S1. No fracture. boggy facets L4-5 and L5-S1. NO instability noted. No severely stenotic lesions. L2-3 and L3-4 Lt foraminal stenosis secondary to disc bulge pressing on exiting nerve roots. Assessment and Plan Assessment: 1. C4-C5 spondylosis with stenosis 2. C5-C6 spondylosis with stenosis 3. L3-L4 foraminal stenosis 4. Bilateral upper extremity radiculopathy 5. Bilateral upper extremity weakness Plan: Based on my findings I suggest the following course of action: 1. I discussed treatment options with the patient, including operative and non-operative options, and they have elected to proceed with the following surgical procedure: C4-C6 ACDF The indications, risks, benefits, and alternatives to surgery were discussed with the patient and family at length. Specifically (but not limited to) the risks of infection, stiffness, recurrence of symptoms, need for revision surgery, local numbness, neurovascular injury, and blood clots were discussed. The patient's questions were answered. The decision to proceed was made. Consent will be obtained for the procedure. 2. Continue with supplements, health maintenance, and home exercise programs. 3. Of note, the patient does complain of increased crushing chest pain over the last 3 days, we did discuss this and i did advise her to both follow up with her PCP for an EKG prior to surgery as well as follow up in the ER either later today or in the morning if her symptoms do persist. We did discuss the risk factors of heart disease and heart attacks and the patient was agreeable and expressed understanding. 4. Spine Surgery Risk Review Jennifer Newton is presenting for evaluation of cervical pain and bilateral upper extremity radiculopathy. It was my pleasure to have seen and examined Jennifer Newtno. In our visit today we have had a chance to go over subjective complaints, physical examination findings and treatments including the natural course history without intervention and various interventional options. The patients imaging demonstrates Xrays: SPONDYLOSIS l4 5 l5-s1 PERIODS WORSE AT L5-S1. tHERE IS NO INSTABILITY ON FLEXION-EXTENSION FILMS. There are no fractures dislocations or lesions noted. AP pelvis demonstrates congruent femoral acetabular joints level pelvis congruent pelvis no fracture or dislocation. MRI: C4-5 stenosis central due to disc bulge, C5-6 stenosis central and foraminal due to bulge with spondylosis of both, Modic endplate changes, OC and C1-2 stable, No overt myelomalacia noted. On physical exam, Jennifer Newton demonstrates muscle wasting of the bilateral uppr extremities with weakness, poor coordination and fine motor skills. I have explained to the patient that as their condition progresses it will cause further neurological deficits and eventual paralysis. Based on the patients imaging, physical exam, and the rapid progression and disabling nature of their symptoms, at this time I recommend surgery in the form or a: C4-C6 ACDF . I discussed the risk and benefits of this procedure at length with Jennifer Newton. The patient agreed to considered pursuing the procedure abovementioned. Prior to surgery, she should follow up with her PCP (Cardio, ID, IM etc) for clearance. Questions were invited and answered, and the patient wishes to proceed as outlined below. Currently, I am recommendin.C4-C6 ACDF 2.Follow up with PCP for surgical clearance 3.Review of surgical risks and benefits as well as an educational packet on the proposed surgical procedure. Risks: All surgical procedures come with inherent risks, including those related to positioning, anesthesia, intraoperative findings, and postoperative complications. It is important to understand that surgery does not come with any guarantee of a successful outcome as complications and adverse events are always possible. The patient was given a handout in office today discussing the surgical procedure and risks associated with the intervention, both of which were discussed with the patient. These risks include but are not limited to the following: * Experiencing same, different or even worse symptoms in back, neck, arms, or legs compared to before surgery. Requiring further surgery or other forms of treatment presently or at some time in the future at same or other levels of the intended spine surgery. On an extreme but fortunately relatively rare basis severe complication such as blindness, stroke, heart attack, temporary and/or permanent nerve injury, paralysis, coma, or may occur, sometimes without known explanation. Surgical complications may include but are not limited to risk of infection, fluid accumulation in the surgical dissection site, including a seroma or hematoma, that requires additional surgery, wound drainage, bleeding, new numbness or weakness, vision changes/loss, spinal fluid leakage, non-healing and/or infected incision, headaches, difficulty or inability to swallow, hoarseness, hemopneumothorax, pneumothorax, impotence, retrograde ejaculation, vaginal dryness; injury to nerves, spinal cord, blood vessels, lymphatics or other vital organs (i.e., bowel injury, injury to the great vessels); heterotopic bone formation; complications related to the hardware such as screws, rods, cages including misplaced hardware, device failure, instrumentation at the wrong spine level, hardware fracture/breakage, or hardware loosening; vertebral failure of the spinal column above or below the newly placed hardware; retained surgical instrumentations or devices and the n eed for further surgery. * Medical risks of the planned spine surgery include but are not limited to generalized Infections to the whole body or local areas outside of the surgical site (sepsis), heart attack, bleeding, anaphylaxis, meningitis, seizure, epilepsy, hearing loss, burn gage, laceration of the head or other areas of the body, bruising, hypersensitivity of the skin, bladder over distension; allergic reaction; shoulder injury related to positioning; fat, blood and air clots to other areas of the body like heart, lungs, brain; failure of internal organs such as lungs, kidneys, liver and excessive bleeding. If blood transfusions are necessary, note that transfusions may cause intolerance reactions such as anaphylaxis or other complex reactions. Despite best efforts, the results of spine surgery might not heal in terms of bone, soft tissues such as skin, fascia, ligaments, and joints. Additionally, in order to achieve best possible results, spine surgery may be carried out beyond the initially planned levels and involve decompression, fusion including insertion of hardware at levels other than the original intended area of surgical interest change some portions of the procedure in order to ensure the best possible outcomes. With spine surgery and spinal fusion, there are different off label uses of instrumentation (devices, implants and hardware) as well as biological substances (bone morphogenic proteins, demineralized bone matrix) as well as using extra bone from allograft sources (i.e. cadaver bone) or autograft (iliac crest bone, ribs, or the spine itself). The patient has been given information about these practices and their inherent risks and benefits. [facility] is an educational center that serves as a training facility for neurosurgical and orthopedic [employer] and Nursing students. Physician assistants are medically trained surgical providers who function in the outpatient, inpatient, and operating room setting under the direct supervision of the attending surgeon. [facility] has multiple operating rooms with single and overlapping rooms running daily. They currently function under the required guidelines as produced by the [facility] Finance Committee with regards to the overlapping rooms and will continue to comply with changes to this policy as they occur. The requirements include and are complied with as follows: (1) the critical portions of the overlapping rooms will not occur at the same time, (2) the attending physician will be physically present during the critical portions of the procedure and immediately available during the entire case, and (3) a back-up attending is designated should the primary attending not be immediately available. The patient has had a chance to review all the listed information, has been given print outs detailing this information, and has had all his/her questions answered to their satisfaction. It was my pleasure to have seen and examined Jennifer Newton. In our visit today we have had a chance to go over my understanding of our patient's current condition, the natural course history without intervention and various interventional options. Questions were invited and answered, and the patient wishes to proceed as outlined above. I have seen and examined the patient for 25 minutes and we have spent more than 50% of the time in repeat and detailed counseling about the patient's condition, its natural course history with out and as much as can be predicted with surgery and re-review of various surgical treatment options. In conclusion, Jennifer Newton requested we proceed with the above suggested surgery and are willing to accept risks and limitations of the suggested surgery as nature of the disease process and our best attempts at treatment for the condition. Thank you again for allowing us to be part of your patient's care. Please don't hesitate to contact me if you have any further questions. Signed and authenticated by: Dao [facility] Complex [facility] Minimally Invasive Spine Surgery [address] [id number]
--- NOTE | 2022-02-12 06:21 | P.PN ---
Progress Note - Text Progress Note Date: 02/12/22 History and Physical UPDATE I have seen and examined the patient and reviewed the history and physical. There appear to be no significant changes in the patient's current medical status as outlined in the current History and Physical.
[2022-02-12] MEDS: LACTATED RINGERS 1,000 ML IV SCH (06:34)
[2022-02-12] MEDS ORDERED: PROPOFOL 10 MG/ML 20 ML VIAL IV ONE (07:28)
[2022-02-12] MEDS ORDERED: LIDOCAINE 2% INJ 20 MG/ML (2 ML VIAL) ONE (07:28)
[2022-02-12] MEDS ORDERED: SUCCINYLCHOLINE CHLORIDE 100 MG/5 ML SYR IV ONE (07:28)
[2022-02-12] MEDS ORDERED: TRANEXAMIC ACID IN NACL,ISO-OS 1,000 MG/100 ML BAG ONE (07:28)
[2022-02-12] MEDS ORDERED: KETAMINE 10 MG/ML 20 ML VIAL ONE (07:28)
[2022-02-12] MEDS ORDERED: HYDROmorphone (PF) 1 MG/ML ONE (07:28)
[2022-02-12] MEDS ORDERED: LABETALOL 5 MG/ML VIAL MDV ONE (07:28)
[2022-02-12] MEDS ORDERED: MIDAZOLAM 2 MG/2 ML VIAL ONE (07:28)
[2022-02-12] MEDS ORDERED: fentaNYL (PF) 50 MCG/ML 2 ML AMP ONE (07:28)
[2022-02-12] MEDS ORDERED: BUPIVACAINE (PF) 0.25% 30 ML VIAL SQ ONE (08:40)
[2022-02-12] MEDS ORDERED: GELATIN SPONGE,ABSORB (SMALL) 1 EACH SPONGE TOPICAL ONE (08:40)
[2022-02-12] MEDS ORDERED: THROMBIN (BOVINE) 5,000 UNIT VIAL TOPICAL ONE (08:41)
[2022-02-12] MEDS ORDERED: LACTATED RINGERS 1,000 ML IV ONE (09:41)
[2022-02-12] MEDS: HYDROmorphone 0.5 MG/0.5 ML SYRINGE IVP PRN ×5 (10:17→23:47)
[2022-02-12] MEDS ORDERED: diphenhydrAMINE 50 MG/ML 1 ML VIAL IVP ONE (10:20)
[2022-02-12] MEDS ORDERED: HYDROmorphone 0.5 MG/0.5 ML SYRINGE IVP ONE (10:22)
[2022-02-12] MEDS ORDERED: hydrALAZINE HCL 20 MG/ML 1 ML VIAL IVP ONE (11:16)
[2022-02-12] MEDS ORDERED: MAGNESIUM HYDROXIDE 2,400 MG/10 ML CUP PO PRN (11:37)
[2022-02-12] MEDS ORDERED: SENNOSIDES-DOCUSATE SODIUM 1 EACH TAB PO PRN (11:37)
--- NOTE | 2022-02-12 11:44 | FL ---
Fluoroscopy HISTORY: Anterior cervical fusion 25 seconds fluoroscopy time supplied to the referring clinician. 7 intraoperative C-arm images docum ent the procedure. See dictated report from orthopedic surgery.
[2022-02-12] MEDS: CYCLOBENZAPRINE 5 MG TAB PO PRN ×2 (12:31→17:45)
[2022-02-12] MEDS: HYDROcodone/APAP 10-325MG 1 EACH TAB PO PRN ×2 (12:32→19:29)
--- NOTE | 2022-02-12 13:17 | P.CONS ---
History of Present Illness - Reason for Consult Consult date: 02/12/22 Medical Management Requesting physician: Dao Jeffers - Chief Complaint Neck pain, arm weakness - History of Present Illness History of Presenting Illness: Patient is a very pleasant 57-year-old female with a past medical history of chronic back pain, migraines, previous TIA, and hypothyroidism. She is currently admitted under orthospine surgical team and is status post C4 through C6 discectomy with fusion surgical procedure was completed by Dr. Jeffers 02/12/22. We have been consulted to provide medical management throughout patient's hospitalization. Patient was seen and evaluated upon return from postoperative and to room 451. She was resting comfortably in bed and reports postsurgical pain to neck is currently controlled. Patient does report she is having pain/agitation to bilateral shoulders resulting from neck brace. Patient reports her muscles are just cramping and RN medicated patient at this time with Flexeril and Amberg. Patient denies having any headache, lightheadedness, dizziness, dysphagia, chest pain, palpitations, shortness of breath, or experiencing any numbness/tingling/weakness in her extremities. Patient reports that she has urinated and postoperative timeframe and has been tolerating oral intake denying any episodes of nausea or vomiting. Patient denies history of previous DVTs or PEs and denies any recent infections or fevers. Review of systems: Pertinent positives and negatives as discussed in HPI, a complete review of systems was performed and all other systems are negative. Physical exam: Vital signs reviewed and stable. General: Nontoxic, no distress and appears stated age. Derm: Skin warm and dry, normal coloration for ethnicity. Head: Atraumatic, normocephalic and symmetric. Soft c-collar in place. Eyes: EOMs intact, no lid lag, and anicteric sclera Mouth: no lip lesions, mucus membranes moist Cardiovascular: regular rate and rhythm with normal S1S2, no murmur, positive posterior tibial pulses bilaterally, and cap refill < 2 seconds. Lungs: Respirations even, regular, and unlabored on room air. Lungs CTA bilaterally, no rhonchi, no rales, no wheezing, and no accessory muscle usage. Abdominal: soft, nontender to palpation, no guarding, no appreciable organomegaly Ext: ROM intact. No gross muscle atrophy, no edema, no contractures Neuro: Speech clear, face symmetrical and CN II-XII grossly intact with no noted focal neuro deficits Psych: Alert and oriented to person, place, time, and situation. Appropriate and pleasant affect. Assessment and Plan of Care: Neck pain accompanied by bilateral upper extremity weakness Status post C4 through C6 discectomy with fusion -Surgical procedure completed by Dr. Jeffers 02/12/22. -Managed by primary admitting orthospine surgery team including pain management, DVT prophylaxis, dressing changes/wound care, and PT/OT. -Currently DVT prophylaxis with SCDs -Encourage use of incentive spirometry 10-15 times hourly while awake. Hypothyroidism -Continue daily medication regimen with levothyroxine each morning.. Chronic migraines Chronic back pain Previous TIA -Provide safe and supportive treatment with pain management. -DVT prophylaxis with FACUNDO wallace and SCDs Thank you for allowing us to participate in the care of this pleasant patient. Do not hesitate to contact us with questions. Someone can be reached from the [facility] group all hours of the day at [phone] or via [employer]. I reviewed the documentation as provided by the LEO above, who is the original author of this note. I agree with the documented assessment and plan, with the following changes: None Past Medical History Past Medical History: GERD/Reflux, Hyperlipidemia, Neurologic Disorder, Osteoarthritis (OA), Thyroid Disorder Additional Past Medical History / Comment(s): 2016 Possible TIA/CVA or migraine with double vision, currently being tested for Multiple Sclerosis, chronic low back pain-L1-2-3, frequent migraines, hypothyroid. History of Any Multi-Drug Resistant Organisms: None Reported Past Surgical History: Section, Orthopedic Surgery Additional Past Surgical History / Comment(s): BONE SPURS REMOVED FROM BILATERAL SHOULDERS, Section X2, PAIN CLINIC PROCEDURES. Past Anesthesia/Blood Transfusion Reactions: No Reported Reaction Additional Past Anesthesia/Blood Transfusion Reaction / Comm: Woke up during shoulder surgery. Past Psychological History: No Psychological Hx Reported Additional Psychological History / Comment(s): Pt resides alone. 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 Smoking Status: Former smoker Past Alcohol Use History: Rare Additional Past Alcohol Use History / Comment(s): Started smoking in 1995 and [id number] cigarettes a day, quit 4 months ago. Past Drug Use History: Marijuana Additional Drug Use History / Comment(s): Medical marijuana on occasion in edible form for back pain. Aware no use 24 hrs prior to procedure. - Past Family History Father History Unknown: Yes Family Medical History: Diabetes Mellitus Additional Family Medical History / Comment(s): Father lived to be 78 yrs old. Mother History Unknown: Yes Family Medical History: COPD, Respiratory Disorder Additional Family Medical History / Comment(s): Mother of respiratory failure at the age of 69. Medications and Allergies Home Medications Medication Instructions Recorded Confirmed Type HYDROcodone/APAP 7.5-325MG [Amberg 1 tab PO Q6H PRN 03/04/16 02/12/22 History 7.5-325] Levothyroxine Sodium [Synthroid] 50 mcg PO DAILY 03/05/16 02/12/22 History Cyclobenzaprine [Flexeril] 10 mg PO HS PRN 10/03/17 02/12/22 History Levothyroxine Sodium [Synthroid] 200 mcg PO DAILY 10/03/17 02/12/22 History Aspirin EC [Ecotrin] 325 mg PO DAILY 11/03/17 02/12/22 History Butalbital/Acetaminophen 1 - 2 tab PO Q4H PRN 09/06/21 02/12/22 History [Butalbital/Acetaminophen 50-300 Tab] Pregabalin [Lyrica] 150 mg PO BID 09/06/21 02/12/22 History Allergies Allergy/AdvReac Type Severity Reaction Status Date / Time gabapentin Allergy Rash/Hives Verified 02/12/22 06:18 Physical Exam Osteopathic Statement: *. No significant issues noted on an osteopathic structural exam other than those noted in the History and Physical/Consult. Vitals: Vital Signs Temp Pulse Resp BP Pulse Ox 02/12/22 12:02 97.9 F 73 18 156/58 96 02/12/22 11:40 83 14 156/74 98 02/12/22 11:25 69 16 158/75 98 02/12/22 11:10 72 14 162/75 98 02/12/22 10:55 89 12 165/87 97 02/12/22 10:40 75 12 164/85 99 02/12/22 10:26 95 14 196/91 95 02/12/22 10:11 97.8 F 95 16 186/105 97 02/12/22 06:23 97.3 F L 69 133/77 97 Intake and Output 02/11/22 02/12/22 02/12/22 22:59 06:59 14:59 Intake Total 300 1350 Output Total 50 Balance 300 1300 Intake: IV 300 1350 Output: Estimated Blood Loss 50 Other: Weight 94.7 kg 94.7 kg
[2022-02-12] MEDS: HYDROmorphone 1 MG/ML 1 ML SYRINGE IVP PRN (14:37)
[2022-02-12] MEDS: ONDANSETRON 4 MG/2 ML VIAL IVP PRN (14:38)
[2022-02-12] MEDS: MAG HYDROX/AL HYDROX/SIMETH 30 ML CUP PO PRN (17:45)
--- NOTE | 2022-02-12 19:32 | P.PN ---
Progress Note - Text Progress Note Date: 02/12/22 Post op Note: pt s/e doing well. Pain controlled. VSS at this time. Soft collar in place. Min or pain with swallowing. Arms feel better. No issues at this time. APpreciate medical management PT/OT Soft collar Pain control non contrasted Ct C spine Likely home tomorrow.
[2022-02-12] MEDS: PREGABALIN 75 MG CAP PO SCH (21:17)
[2022-02-13] MEDS: HYDROcodone/APAP 10-325MG 1 EACH TAB PO PRN ×2 (01:32→12:15)
[2022-02-13] MEDS: CYCLOBENZAPRINE 5 MG TAB PO PRN ×2 (01:33→07:51)
[2022-02-13] MEDS: MAG HYDROX/AL HYDROX/SIMETH 30 ML CUP PO PRN (01:33)
[2022-02-13] MEDS ORDERED: hydrALAZINE HCL 25 MG TAB PO STA ×2 (03:07→05:12)
[2022-02-13] MEDS: HYDROmorphone 0.5 MG/0.5 ML SYRINGE IVP PRN (05:11)
[2022-02-13] MEDS: ONDANSETRON 4 MG/2 ML VIAL IVP PRN (05:11)
[2022-02-13] MEDS ORDERED: LEVOTHYROXINE 100 MCG TAB PO SCH (06:30)
[2022-02-13] MEDS: PREGABALIN 75 MG CAP PO SCH (07:01)
[2022-02-13] MEDS: LACTATED RINGERS 1,000 ML IV SCH (07:04)
[2022-02-13] MEDS ORDERED: PROCHLORPERAZINE INJ 10 MG/2 ML VIAL IVP PRN (07:49)
--- NOTE | 2022-02-13 07:50 | P.PN ---
Subjective Progress Note Date: 02/13/22 History of Presenting Illness: Patient is a very pleasant 57-year-old female with a past medical history of chronic back pain, migraines, previous TIA, and hypothyroidism. She is curre ntly admitted under orthospine surgical team and is status post C4 through C6 discectomy with fusion surgical procedure was completed by Dr. Jeffers 02/12/22. We have been consulted to provide medical management throughout patient's hospitalization. Patient was seen and evaluated upon return from postoperative and to room 451. She was resting comfortably in bed and reports postsurgical pain to neck is currently controlled. Patient does report she is having pain/agitation to bilateral shoulders resulting from neck brace. Patient reports her muscles are just cramping and RN medicated patient at this time with Flexeril and [place]. Patient denies having any headache, lightheadedness, dizz iness, dysphagia, chest pain, palpitations, shortness of breath, or experiencing any numbness/tingling/weakness in her extremities. Patient reports that she has urinated and postoperative timeframe and has been tolerating oral intake denying any episodes of nausea or vomiting. Patient denies history of previous DVTs or PEs and denies any recent infections or fevers. Physical exam: Patient was hypertensive throughout the night and reports this was associated with uncontrolled pain. Received page this morning that patient's blood pressure was 210/109 and patient reporting uncontrolled 10 out of 10 pain. RN instructed to give 1 mg of Dilaudid and recheck pressure in 1 hour. I arrived t o the bedside after 30 minutes and personally rechecked blood pressure at that time and was significantly improved at 140/90 and patient now reporting pain 4-5 out of 10 at this time. Patient denies history of any previous episodes of hypertension prior to this hospitalization. Pain control and blood pressure strongly associated. Will not start patient on antihypertensive medication at this time. Patient advised that she will need to obtain a blood pressure cuff from local pharmacy and check her blood pressure daily and document in a journal that she will need to bring with her to her next doctor's appointment as she will need to have close monitoring of her pressures. Patient instructed that if blood pressure remains elevated despite pain control she will need to seek medical attention. Patient otherwise denies having any complaints including headache, lightheadedness, dizziness, changes in her vision or hearing, chest pain, palpitations, or experiencing any numbness/tingling/weakness in her extremities. Morning labs reviewed and stable. Postoperative hemoglobin 15.6 and slight leukocytosis with WBC count of 13.94.. Vital signs reviewed and stable. General: Nontoxic, no distress and appears stated age. Derm: Skin warm and dry, normal coloration for ethnicity. Head: Atraumatic, normocephalic and symmetric. Soft c-collar in place. Eyes: EOMs intact, no lid lag, and anicteric sclera Mouth: no lip lesions, mucus membranes moist Cardiovascular: regular rate and rhythm with normal S1S2, no murmur, positive posterior tibial pulses bilaterally, and cap refill < 2 seconds. Lungs: Respirations even, regular, and unlabored on room air. Lungs CTA bilaterally, no rhonchi, no rales, no wheezing, and no accessory muscle usage. Abdominal: soft, nontender to palpation, no guarding, no appreciable organomegaly Ext: ROM intact. No gross muscle atrophy, no edema, no contractures Neuro: Speech clear, face symmetrical and CN II-XII grossly intact with no noted focal neuro deficits Psych: Alert and oriented to person, place, time, and situation. Appropriate and pleasant affect. Assessment and Plan of Care: Hypertensive urgency -Patient was hypertensive throughout the night and reports this was associated with uncontrolled pain. Received page this morning that patient's blood pressure was 210/109 and patient reporting uncontrolled 10 out of 10 pain. RN instructed to give 1 mg of Dilaudid and recheck pressure in 1 hour. I arrived to the bedside after 30 minutes and personally rechecked blood pressure at that time and was significantly improved at 140/90 and patient now reporting pain 4-5 out of 10 at this time. -Patient denies history of any previous episodes of hypertension prior to this hospitalization. -Pain control and blood pressure strongly associated. Will not start patient on antihypertensive medication at this time. Patient advised that she will need to obtain a blood pressure cuff from local pharmacy and check her blood pressure daily and document in a journal that she will need to bring with her to her next doctor's appointment as she will need to have close monitoring of her pressures. Patient instructed that if blood pressure remains elevated despite pain control she will need to seek medical attention. Neck pain accompanied by bilateral upper extremity weakness Status post C4 through C6 discectomy with fusion -Surgical procedure completed by Dr. Jeffers 02/12/22. -Managed by primary admitting orthospine surgery team including pain management, DVT prophylaxis, dressing changes/wound care, and PT/OT. -Currently DVT prophylaxis with SCDs -Encourage use of incentive spirometry 10-15 times hourly while awake. Hypothyroidism -Continue daily medication regimen with levothyroxine each morning.. Chronic migraines Chronic back pain Previous TIA -Provide safe and supportive treatment with pain management. -DVT prophylaxis with FACUNDO wallace and SCDs Thank you for allowing us to participate in the care of this pleasant patient. Do not hesitate to contact us with questions. Someone can be reached from the [facility] hospitalist group all hours of the day at [phone] or via [email or web address]. I reviewed the documentation as provided by the LEO above, who is the original author of this note. I agree with the documented assessment and plan, with the following changes: None Objective - Vital Signs Vital signs: Vital Signs Temp 97.9 F 02/13/22 02:00 Pulse 94 02/13/22 05:10 Resp 18 02/13/22 02:00 BP 193/105 02/13/22 05:10 Pulse Ox 96 02/13/22 05:10 Intake & Output 02/12/22 02/13/22 02/13/22 18:59 06:59 18:59 Intake Total 1830 Output Total 50 Balance 1780 Weight 94.7 kg Intake: IV 1350 Oral 480 Output: Estimated Blood Loss 50 Other: # Voids 2 3 # Emeses 1 - Labs CBC & Chem 7: 02/13/22 06:01 02/13/22 06:01
[2022-02-13] MEDS: HYDROmorphone 1 MG/ML 1 ML SYRINGE IVP PRN (07:51)
--- NOTE | 2022-02-13 08:13 | P.PN ---
Subjective Progress Note Date: 02/13/22 Principal diagnosis: C4 to C6 spondylosis with stenosis Patient seen and examined today. Ms. Newton is sitting up in bed. Patient states that her pain is controlled at this time. Her only complaint is slight discoloration of her right hand. Patient states that this has improved since last night. Patient denies any numbness tingling to bilateral upper extremities. She does state that her shoulders are sore and has been using a heating pad. Instructed patient to use ice packs, and that this will improve. Patient verbalized understanding. RN has notified that patient's blood pressure has been elevated throughout the night and has received oral hydralazine with no result. Once blood pressure has been stabilized patient will be pending discharge later today. Surgical dressing is clean dry and intact. SHERIF drain will be removed this afternoon. Patient denies fevers/chills, nausea/vomiting, or chest pain. Objective - Vital Signs Vital signs: Vital Signs Temp 97.9 F 02/13/22 02:00 Pulse 94 02/13/22 05:10 Resp 18 02/13/22 02:00 BP 193/105 02/13/22 05:10 Pulse Ox 96 02/13/22 05:10 Intake & Output 02/12/22 02/13/22 02/13/22 18:59 06:59 18:59 Intake Total 1830 Output Total 50 Balance 1780 Weight 94.7 kg Intake: IV 1350 Oral 480 Output: Estimated Blood Loss 50 Other: # Voids 2 3 # Emeses 1 - Exam Physical Examination General: The patient is awake and alert, in no acute distress Skin: Skin is warm and dry with no obvious rashes or lesions. Hairy patches absent, no dorsal skin dimples, no cafe au lait spots. Surgical Incision to anterior cervical region with SHERIF drain present. Eye: Pupils are equal, round and reactive to light, extra-ocular movements are intact; there is normal conjunctiva bilaterally. Neck: The neck is supple, there is slight tenderness and ROM limited due to surgical procedure. Cardiovascular: There is a regular rate and rhythm. No murmur, rub or gallop is appreciated. Respiratory: Lungs are clear to auscultation, respirations are non-labored, breath sounds are equal. Gastrointestinal: Soft, non-distended, non-tender abdomen . Back: There is no tenderness to palpation in the midline, paralumbar, parathoracic or buttocks region. There is no obvious deformity . Musculoskeletal: ROM limited secondary to pain and stiffness from surgical procedure. Shoulder abduction 4/5, elbow flexors 4/5, wrist dorsiflexors 4/5. finger abductor 4/5, alumni relations officer 4/5, hip flexor 5/5, knee flexor 5/5, ankle dorsiflexor 5/5, ankle plantarflexion 5/5 and extensor hallucis 5/5. Neurological: CN 2-12 intact. There are no obvious motor or sensory deficits. Movement and coordination equal and intact. Sensory exam to light touch intact C5-T1 and intact from L2-S1. Reflexes 2/4 in bilateral upper and lower extremities. Negative Hoffmans, babinski, and clonus signs. Psychiatric: Cooperative, appropriate mood & affect, normal judgment. Assessment and Plan Assessment: Postop day 1: Anterior cervical dissection and fusion C4-C6 Plan: Plan: -Appreciate data migration consultant and team management. -Activity: Ambulate QID, OOB all meals, up and about, limit lifting bending twisting to less than 5 lbs. -Daily PT/OT, increase ambulation strength and balance. -Soft collar when up and about, not needed in bed sleeping -Pain control: Adequate at this time -Meds: reviewed -GI ppx: senna, Miralax -Hygiene: Shower today. Maintain dressing clean and dry. -Drains: DC later today. -Encourage IS 10x/hr -Dispo: Anticipate discharge home today 02/13/22 pending management of elevated BP *I reviewed and discussed this case with my attending Dr. Jeffers, whom has reviewed this chart and films and is in agreement with assessment and plan of care as outlined above. I have personally seen and examined the patient, performed the documentation and the assessment and plan as written. Number of minutes spent on the visit: 20 minutes. Time with Patient: Less than 30
--- NOTE | 2022-02-13 08:44 | P.OP ---
Date of Procedure: 02/12/22 Preoperative Diagnosis: 1. C4-6 spondylosis with stenosis moderate to severe 2. UE radiculopathy 3. UE weakness 4. Mechanical neck pain Postoperative Diagnosis: 1. C4-6 spondylosis with stenosis moderate to severe 2. UE radiculopathy 3. UE weakness 4. Mechanical neck pain Procedure(s) Performed: 1. Anterior RIGHT sided Rivero-Nolasco approach to anterior spine 2. C4-5 anterior interbody arthrodesis (55944) 3. C5-6 anterior interbody arthrodesis (02356) 4. C4-5 and C5-6 application of biomechanical device (36882u3) 5. C4-6 application of anterior nonintegrated plate 2 level (16459) 6. Use of intraoperative neuromonitoring 7. Interpretation of intraoperative flouroscipy <1 hr (63036) Implants: -[place] Cage 8 mm 8 deg lordotic x2 -[place] plate 2 level' -Allograft -Autograft -Bio4 Anesthesia: GETA Surgeon: Dao [employer] Manager #1: Keaton Santos (Was present for the entire case and assisted in positioning, dissection, fusion, hardware placement, decompression, closure and dressing placement. ) Estimated Blood Loss (ml): 50 IV fluids (ml): 1,000 Urine output (ml): 0 Pathology: none sent Condition: stable Disposition: PACU Indications for Procedure: Jennifer Newton is presenting for evaluation of cervical pain and bilateral upper extremity radiculopathy. It was my pleasure to have seen and examined Jennifer Newton. In our visit today we have had a chance to go over subjective complaints, physical examination findings and treatments including the natural course history without intervention and various interventional options. The patients imaging demonstrates Xrays: SPONDYLOSIS l4 5 l5-s1 PERIODS WORSE AT L5-S1. tHERE IS NO INSTABILITY ON FLEXION-EXTENSION FILMS. There are no fractures dislocations or lesions noted. AP pelvis demonstrates congruent femoral acetabular joints level pelvis congruent pelvis no fracture or dislocation. MRI: C4-5 stenosis central due to disc bulge, C5-6 stenosis central and foraminal due to bulge with spondylosis of both, Modic endplate changes, OC and C1-2 stable, No overt myelomalacia noted. On physical exam, Jennifer Newton demonstrates muscle wasting of the bilateral uppr extremities with weakness, poor coordination and fine motor skills. I have explained to the patient that as their condition progresses it will cause further neurological deficits and eventual paralysis. Based on the patients imaging, physical exam, and the rapid progression and disabling nature of their symptoms, at this time I recommend surgery in the form or a: C4-C6 ACDF . I discussed the risk and benefits of this procedure at length with Jennifer Newton. The patient agreed to considered pursuing the procedure abovementioned. Prior to surgery, she should follow up with her PCP (Cardio, ID, IM etc) for clearance. Questions were invited and answered, and the patient wishes to proceed as outlined below. Currently, I am recommendin.C4-C6 ACDF 2.Follow up with PCP for surgical clearance 3.Review of surgical risks and benefits as well as an educational packet on the proposed surgical procedure. Description of Procedure: The patient was brought to the holding area on the day of surgery. In the holding area, the patient was seen and examined by myself. The surgical site was marked with my initials using an indelible pen. The patient was taken to the operating room today and after being positively identified, received general endotracheal anesthesia by our anesthesia colleagues and bilateral sequential compression devices were placed on the lower extremities by the nursing staff. SSEP, EMG and motor-evoked potential baselines were obtained after the neuromonitoring leads were applied by the neurophysiology pile driving technician. Baseline MEPs and SSEPs were run showing good symmetric response in all extremities. SSEPs were also symmetric and stable. The patient was positioned on an interscapular pad on a Treos table with cervical lordosis roll and Arms were circumferentially padded. All pressure points were well padded as well. Shoulder pull-down with 3-inch tape was carried out. Preoperatively within 1 hour of incision, the patient received IV antibiotic prophylaxis and steroids. C-arm was used for bio-mapping in 2 planes. Sterile prepping and draping was completed and a safety timeout was carried out. The timeout was performed in order to confirm patient's identity, procedure, laterality, site, patient allergies, and preoperative administration of antibiotics and DVT prophylaxis. I then performed, as discussed with the patient, a RICHT sided anterior exposure along the anterior margin of the sternocleidomastoid muscle. This was about a 4 fingerbreadth-long incision. We identified the platysma and split it longitudinally. The superficial layer of the middle cervical fascia was identified and carefully dissected and then the deep layer of it. The omohyoid was mobilized and could be retracted. The deep cervical fascia was then released over the palpable osteophytes at C4 5 C5 6 and reflected left and right with hamilton elevators off the uncovertebral joints. Nice exposure left and right with release of the anterior soft tissues of the longus colli was achieved. A radiopaque marker was placed to confirm the appropriate surgical level. Under C-arm guidance, we verified levels. At this point, a self-retaining cervical retractor was placed, the endotracheal cuff pressure was lowered to reduce compression on the RLN and the intraoperative microscope was brought in for anterior decompression. I then removed the anterior osteophytes at C4-C5. I also used a smaller ENT rongeur to open the disc spaces, including the uncovertebral joints left and right. Bone from the anterior decompression was saved for use as autograft bone fusion material. Under lateral C-arm guidance, I then placed 12 mm traction pins of the [place] type into C4-C5. Gentle distraction of the vertebrae was carried out until we had restored lordosis. I then spread out the C4-C5 disc after releasing the disc further with straight small curets. With the soft tissue retractors having been replaced and without any undue tension, I performed an anterior discectomy completion to the posterior inferior vertebral body wall using a combination of the high-speed bur, Kerrison punches, spinal curettes, and the microscopic instruments. The discectomy was performed to the level of the posterior longitudinal ligament. Bilateral foraminotomies and resection of the PLL was performed with the Kerrison punches to decompress the spinal cord and the exiting nerve roots. I also performed alix dissection of the C4 endplate and the posterior superior endplate of C5, as well as the medial edge of the superior uncovertebral joints left and right of and C5. I released the posterior longitudinal ligament and had full solomon dural sac as a reference for dorsal decompression of left through right. I then turned my attention toward the application of the intervertebral biomechanical device at C4-C5. The trial cages were inserted to identify the best fit. The appropriate-sized intervertebral cage was then selected, in this case a 8 degrees lordotic interbody implant, packed with autograft and allograft and then inserted into the interspace using gentle impaction. A set of motor evoked potentials was run showing no change from baseline. Excess bone graft was then gently impacted into the anterior exposed gutters at C4-C5 to complete the anterior interbody arthrodesis at this level. Next, I performed the anterior discectomy at C5-C6. Under lateral C-arm guidance, I removed self-retaining [place] distractor followed by the [place] pin from the C4 body, sealed the pin site with bone wax and then placed 12 mm traction pin of the [place] type into the C6 body. Gentle distraction of the vertebrae was carried out until we had restored lordosis. Then using a combination of the high-speed bur, Kerrison punches, spinal curettes, and the microscopic instruments, an anterior discectomy was performed to the level of the posterior longitudinal ligament at C5-C6. Bilateral foraminotomies and resection of the PLL was performed with the Kerrison punches to decompress the spinal cord and the exiting nerve roots.] I then turned my attention toward the application of the intervertebral biomechanical device at C5-C6. The trial cages were inserted to identify the best fit. The appropriate-sized intervertebral cage was then selected, in this case a 8 mm lordotic interbody implant, packed with autograft and allograft and then inserted into the interspace using gentle impaction. A set of motor evoked potentials was run showing no change from baseline. Excess bone graft was then gently impacted into the anterior exposed gutters at C5-C6 to complete the anterior interbody arthrodesis at this level. Nice purchase was obtained. All traction was removed, including pin traction of [place] and external traction weight. I then performed the application of the non-integrated anterior spinal instrumentation from C4 through C6. A non-integrated anterior cervical plate was selected for length and then contoured as needed for lordosis with the [place] velazquez. I selected a plate lordosed it, and secured it with temporary holding screws and then checked with AP and lateral imaging for adequate alignment and implant placement. With that having been accomplished, I drilled first the patient's left-hand side C6. With this having been accomplished, all screw holes were filled with 14 mm 3.5 mm screws, depending upon intraoperative drill finding and probing. A very nice stable fixation was obtained. Biplanar imaging revealed satisfactory alignment and implant placement. There were no electrodiagnostic changes. The wound was then copiously irrigated and final hemostasis was achieved using FloSeal hemostatic agent and the bipolar device. At this point, the anterior cervical retractor was removed and the wound was found to have good hemostasis present. I then performed final thorough irrigation and review of the surgical site and found no internal organ injuries. I then closed the incision in layers with a deep drain. I used 3-0 Vicryl for platysma, 3-0 Vicryl for subcutaneous, and 4-0 Monocryl for skin. The skin was then dressed with Exofin and a sterile bandage. Suction canister was applied to the drain. The drain was sewn in to avoid accidental translocation. Drain dressing was applied. A Soft cervical collar was then applied. A final set of motor evoked potentials were run and no change from baseline was noted. At the conclusion of the operation, all sponge, needle, and instrument counts were deemed to be correct. The patient was awakened from their anesthetic, extubated in the operating room, transferred onto their hospital bed, and transferred to the post-anesthesia care unit in a stable condition, extubated condition. COMPLICATIONS: No known complications. No blood products given. No dural tear, no CSF leak. No changes in intraoperative neuromonitoring. DRAINS: One small round oswaldo drain COUNTS: Needle, sponge and cottonoid count correct. UOP: See anesthesia record FLUIDS: See anesthesia record SPECIMENS SUBMITTED: None. POSTOPERATIVE PLAN: Mobilization with collar to be worn for 3 months. Head of bed should be above 30 degrees. Swallowing trial with ice chips first and then advance from there.
[2022-02-13 10:53] LABS: Basophils # (A) 0.04 X 10*3/uL (0.00-0.10); Basophils % (A) 0.3 %; Eosinophils # (A) 0.03 X 10*3/uL (0.04-0.35); Eosinophils % (A) 0.2 %; HCT 46.6 % (37.2-46.3); HGB 15.6 g/dL (12.0-15.0); Immature Grans, Automated 0.5 %; Lymphocytes # (A) 1.82 X 10*3/uL (0.90-5.00); Lymphocytes % (A) 13.1 %; MCH 31.6 pg (27.0-32.0); MCHC 33.5 g/dL (32.0-37.0); MCV 94.5 fL (80.0-97.0); Mean Platelet Volume 10.8 fL (9.5-12.2); Monocytes # (A) 0.84 X 10*3/uL (0.20-1.00); NRBC Per 100 WBC 0 /100 WBCS (0.0-0.0); Neutrophils # (A) 11.14 X 10*3/uL (1.80-7.70); Neutrophils % (A) 79.9 %; Platelet Count 236 X 10*3/uL (140-440); RBC 4.93 X 10*6/uL (4.10-5.20); RDW 13.1 % (11.5-14.5); WBC 13.94 X 10*3/uL (4.50-10.00)
[2022-02-13] MEDS ORDERED: ACETAMINOPHEN TAB 325 MG TAB PO PRN (12:09)
[2022-02-13 12:19] LABS: African American GFR (CKD) 83.5 (60.0-200.0); Anion Gap 14.8 mmol/L (10.00-18.00); BUN/Creat Ratio 10.01 Ratio (12.00-20.00); Blood Urea Nitrogen 8.9 mg/dL (9.0-27.0); Calcium 9.3 mg/dL (8.7-10.3); Carbon Dioxide 21.2 mmol/L (20.0-27.5); Potassium 4.4 mmol/L (3.5-5.5)
[2022-02-13 14:06] VITALS: BP 152/90; PULSE 104; RESP 18; TEMP 99.4
--- NOTE | 2022-02-13 15:06 | P.DS ---
Providers Date of admission: 02/13/22 00:09 Expected date of discharge: 02/13/22 Attending physician: Dao Jeffers DO Consults: 02/12/22 11:40 Consult Physician Routine Consulting Provider: Lito Andrade Consult Reason/Comments: Medical Management Do you want consulting provider notified?: Yes Primary care physician: [facility] Hospital Course: Hospital Course: The patient was evaluated preoperatively and found to have the diagnosis of cervical spondylosis with stenosis C4 to C6. They underwent appropriate preoper ative care and were willing to undergo the intended procedure. They underwent a successful C4 to C6 ACDF, were recovered appropriately and sent to the floor. While on the floor they worked with physical therapy, occupational therapy and nursing to enhance their recovery experience. Their pain was well controlled through their stay and they were started on appropriate medications, DVT ppx modalities, activity and dietary needs. Daily labs were monitored closely, and transfusions were only used when necessary. Medicine as well as other consulting services have made their input and have helped with our team approach and multidisciplinary care. PT milestones have been met and passed and they have made the recommendation of home for this patient and treating providers agree with this care path. The patient will be discharged home with appropriate medications, instructions and follow-up information and in stable condition. Patient Condition at Discharge: Good Plan - Discharge Summary Discharge Rx Participant: Yes New Discharge Prescriptions: New Cyclobenzaprine [Flexeril] 5 mg PO TID #90 tablet Polyethylene Glycol 3350 [Miralax] 17 gm PO DAILY PRN #527 gm PRN Reason: Constipation HYDROcodone/APAP 10-325MG [Dalton 10-325] 1 tab PO Q4-6H PRN #56 tab PRN Reason: Pain Sennosides/Docusate Sodium [Senna Plus 8.6-50 mg Tablet] 1 each PO DAILY PRN #20 tablet PRN Reason: Constipation cefaDROXiL [Duricef] 500 mg PO Q12HR 5 Days #10 cap Pregabalin [Lyrica] 100 mg PO TID 3 Days #9 cap No Action HYDROcodone/APAP 7.5-325MG [Dalton 7.5-325] 1 tab PO Q6H PRN PRN Reason: Pain Levothyroxine Sodium [Synthroid] 50 mcg PO DAILY Levothyroxine Sodium [Synthroid] 200 mcg PO DAILY Cyclobenzaprine [Flexeril] 10 mg PO HS PRN PRN Reason: Muscle Spasm Aspirin EC [Ecotrin] 325 mg PO DAILY Pregabalin [Lyrica] 150 mg PO BID Butalbital/Acetaminophen [Butalbital/Acetaminophen 50-300 Tab] 1 - 2 tab PO Q4H PRN PRN Reason: Migraine Headache Discharge Medication List HYDROcodone/APAP 7.5-325MG [Dalton 7.5-325] 1 tab PO Q6H PRN 03/04/16 [History] Levothyroxine Sodium [Synthroid] 50 mcg PO DAILY 03/05/16 [History] Cyclobenzaprine [Flexeril] 10 mg PO HS PRN 10/03/17 [History] Levothyroxine Sodium [Synthroid] 200 mcg PO DAILY 10/03/17 [History] Aspirin EC [Ecotrin] 325 mg PO DAILY 11/03/17 [History] Butalbital/Acetaminophen [Butalbital/Acetaminophen 50-300 Tab] 1 - 2 tab PO Q4H PRN 09/06/21 [History] Pregabalin [Lyrica] 150 mg PO BID 09/06/21 [History] Cyclobenzaprine [Flexeril] 5 mg PO TID #90 tablet 02/13/22 [Rx] HYDROcodone/APAP 10-325MG [Dalton 10-325] 1 tab PO Q4-6H PRN #56 tab 02/13/22 [ Rx] Polyethylene Glycol 3350 [Miralax] 17 gm PO DAILY PRN #527 gm 02/13/22 [Rx] Pregabalin [Lyrica] 100 mg PO TID 3 Days #9 cap 02/13/22 [Rx] Sennosides/Docusate Sodium [Senna Plus 8.6-50 mg Tablet] 1 each PO DAILY PRN #20 tablet 02/13/22 [Rx] cefaDROXiL [Duricef] 500 mg PO Q12HR 5 Days #10 cap 02/13/22 [Rx] Follow up Appointment(s)/Referral(s): Kim Osborne MD [Primary Care Provider] - 1 Week Dao Jeffers DO [Doctor of Osteopathic Medicine] - 2 Weeks Activity/Diet/Wound Care/Special Instructions: Spine Discharge and Recovery Instructions Date of Surgery: 02/13/2020 Diagnosis: Cervical spondylosis and stenosis C4 to C6 Procedure: C4 to C6 ACDF Medications: See medication list All medication refills should be obtained through your primary care doctor or your clinic spine surgeon. Please discuss prescription refills at your follow up appointment. Do not call the hospital for medication refills. Dressing: Leave your dressing in place for a total of 5 days post operatively. Then you may remove your dressing and leave open to air. Keep the area clean and if not able to keep area clean, then cover with sterile gauze and tape. Showering: You may shower 3 days after your procedure allowing soap and water to run over incision. Do not scrub. Do not soak. Blot dry. Follow up: Please confirm a follow up appointment with your surgeon 3 weeks post operatively. Please make an appointment to follow up with your PCP in 1-2 weeks after surgery for evaluation 3 phase, 3-week plan POST OP WEEKS 1-3 1. Lifting/carrying/pushing/pulling limited to less than 5 pounds. 2. Do not sit for longer than 15 minutes at one time. Get up and walk around. Prolonged sitting is NOT advised. If you lay down, see if you can tolerate laying down on you front (belly side) 3. Walk for periods of 15 minutes = 1 mile but no longer; do it multiple times times each day. 4. Ice your low back after activity. POST OP WEEKS 3-6 1. Lifting limited to less than 20 pounds. 2. Do not sit for longer than 30 minutes at a time. Frequently change positions. Use a sit-to stand workstation or take frequent breaks from sitting if you have returned to work. 3. Walk for 30 minutes each day. If possible, do these three or more times a day POST OP WEEKS 6+ At your 6-week appointment we will give you a physical therapy referral to focus on a core stabilization and strengthening program. You should also work on leg & buttock strengthening, hamstring & quadriceps stretching, and continue a low impact aerobic activity program such as swimming, walking, or riding a stationary bicycle. During the initial 6 weeks after your surgery, you are at the highest risk of re-injuring your spine. You should generally avoid BLTs (bending, lifting and twisting combination motions) and follow the above guidelines to reduce the chance of reinjury. You can anticipate post op appointments in our office at approximately 3 weeks and 6 weeks after your surgery. INCISION CARE: If your incision is not draining you do NOT need to cover it with a dressing. Keep your incision clean, dry and intact. In most cases, we apply skin glue, jasmyn or sutures to the incision at the time of surgery. This will be like a crust or have the appearance of a scab and will fall off in time on its own. The stitches or jasmyn need to be removed at 3 weeks post op appointment. You may begin to shower 3 days after surgery (this allows the glue to gonsales well). However, please avoid scrubbing the incision site or peeling off any of the skin glue. This will ensure optimal healing of your incision. Also, during this time avoid soaking the incision area in water - this includes swimming pools, hot tubs or baths. No ointments, lotions or oils on the incision until your surgeon allows. Leave jasmyn, sutures or glue in place. Neurological dysfunction that comes on suddenly can also be a sign of a stroke. Below some common symptoms of a stroke are listed: B - balance difficulty such as sudden onset walking or leaning to one side - NEW E - eye problem such as sudden double vision or trouble seeing on one side - NEW F - Facial weakness or numbness on one side - NEW A - Arm or leg weakness or numbness on one side - NEW S - Slurred speech or difficulty with word finding - NEW T - Time is BRAIN! Call 911 as soon as you recognize these symptoms Diet: Consume a regular diet rich in vegetables and lean protein such as chicken or fish. You should consume in a ratio of approximately 20% fats|40% carbohydrates|40%protein. Vegetables, sweet potatoes, brown rice or quinoa are examples of good carbohydrates. Chips, white bread, cookies and sweets/sugar are examples of bad carbohydrates. Limit your bad carbs, go wild with good carbs. "Life's Simple 7" Guidelines as per [place] [employer] These will help you reclaim your life after surgery and thermal cutter helper in your recovery, keeping in mind your restrictions. (1) Get Active. Physical activity can help people lose weight, control high blood pressure and cholesterol, feel emotionally better, and sleep better. (2) Control Cholesterol. Avoid a diet high in saturated fat, trans fat, & cholesterol. Limit whole milk & cream, ice cream, butter, egg yolks, processed meats (like sausage and hot dogs), and fatty meats. Choose healthy foods that are low in saturated fat, trans fat and cholesterol which include: Fruits and vegetables, fiber rich grain products (like whole grain pasta and brown rice), lean meat such as chicken, fish, nuts, seeds, and legumes. (3) Eat Better. Eat small portions. Shop at the grocery with a list and do not stray from it. Tips for a healthy diet include: Limit sodium intake to less than 1500mg daily, avoid prepackaged, processed, and fast foods, choose a diet rich in fruits, vegetables, and whole grain, high fiber foods, and limit saturated & cholesterol in your diet. (4) Manage Blood Pressure. If you have high blood pressure, you should have a cuff at home so that you can check your blood pressure regularly. Be sure you have a good cuff. An arm one is generally better than a wrist one. Bring the cuff to a doctor's appointment to validate that the measurements that your cuff are taking are accurate. Take your blood pressure twice daily when you are sitting down and relaxing. Record the numbers in a log and bring this log with you to your doctors' appointments. (5) Lose Weight if your BMI is above 25. A healthy BMI is between 19-25. To calculate Your BMI, you may use a Standard BMI Calculator on the NIH BMI website: <www.nhlbi.nih.gov/guidelines/obesity/BMI/bmicalc.htm>. Weigh oneself daily. If you are overweight, set a goal to lose weight. A pound a week loss if needed is a good target. (6) Reduce Blood Sugar. Limit foods and liquids with "added sugars." (Added sugars include sucrose, fructose, glucose, maltose, dextrose, high fructose corn syrup, corn syrup, concentrated fruit juice and honey). (7) Stop Smoking. If you smoke, quitting smoking is one of the best things that you can do for your health. Smoking increases your risk of heart attack, stroke, and peripheral vascular disease, which is a build-up of plaque in your arteries. Please discard all the cigarettes and lighters in your house. Have a plan for what you will do when you have the urge to smoke. Direct and second- hand smoke shortens your life as well as the lives of your family, friends and others around you. For your health and the health of those around you, please consider quitting! Proper Bending Body Mechanics: Maintain a wide stance with one foot slightly in front of the other. Keep your back straight. Bend utilizing the strength in your hips and knees. Do not bend at the waist. Maintain the lifted object at your waist-level close to your body. Avoid lifting weight that causes immediately pain or pain anywhere in the body afterwards. Smoking/Nicotine If there was ever one thing that you could do to increase your overall health, decrease your risk of cardiovascular problems by about 39% the second you make the choice, it is to STOP SMOKING. Your body's most instant gratification is the second you stop smoking. We have all heard the studies, read the articles but it is true, smoking is extremely bad for your overall health, and moreover it is detrimental to your bone health. Nicotine, IN ANY FORM, kills bone cells, prevents your body from healing fractures, and significantly prolongs healing after surgery. In spine surgery specifically, it increases your risk of not healing your bones to create a fusion and increases your risk of having a revision surgery due to this up to 60%. I know it is hard. I know it feels impossible. But there are ways. Take control of your life. We are here to help you through it. And when you are ready, ask us and we can direct you to help if you desire. Use the START Plan to Quit Smoking (please visit the Helpguide.org website listed below for more information): S = Set a quit date. Choose a date within the next 2 weeks, so you have enough time to prepare without losing your motivation to quit. If you mainly smoke at work, quit on the weekend, so you have a few days to adjust to the change. T = Tell family, friends, and co-workers that you plan to quit. Let your friends and family in on your plan to quit smoking and tell them you need their support and encouragement to stop. Look for a quit jenifer who wants to stop smoking as well. You can help each other get through the rough times. A = Anticipate and plan for the challenges you'll face while quitting. Most people who begin smoking again do so within the first 3 months. You can help yourself make it through by preparing ahead for common challenges, such as nicotine withdrawal and cigarette cravings. R = Remove cigarettes and other tobacco products from your home, car, and work. Throw away all your cigarettes (no emergency pack!), lighters, ashtrays, and matches. Wash your clothes and freshen up anything that smells like smoke. Shampoo your car, clean your drapes and carpet, and steam your furniture. T = Talk to your doctor about getting help to quit. Your doctor can prescribe medication to help with withdrawal and suggest other alternatives. If you can't see a doctor, you can get many products over the counter at your local pharmacy or grocery store, including the nicotine patch, nicotine lozenges, and nicotine gum. Resources for Quitting Smoking: <https://www.[place].gov/documents/[facility]/Quit_Tobacco_Resources_for_patients_313 480_7.pdf> Supplementation: Take recommended dosages of Vitamin D and Calcium to help fortify your bones and help them to heal. See your health maintenance packet for dosages and recommended levels. DVT/VTE prophylaxis: You will be given compression stockings from the hospital. Wear these daily for the first two weeks after surgery. You may take them off at night. You may be prescribed a medication to help thin your blood. Take this as directed. If you are not prescribed this medication, early and frequent ambulation has been shown to be the best prophylaxis to deep vein thrombosis and sequelae related to this event. Discharge Disposition: HOME SELF-CARE
== END 2022-02-13 16:29 | disposition home or self-care (01) ==
LOC: OR 05:48 → 4SSUR 09:59 → OR 02-13 00:09 → 4SSUR 02-13 00:09
PROVIDERS: ADMIT Orthopaedic Surgery; ATTEND Orthopaedic Surgery
DX: M48.02 Spinal stenosis, cervical region (principal); M47.22 Other spondylosis with radiculopathy, cervical region; M48.061 Spinal stenosis, lumbar region without neurogenic claudication; G89.29 Other chronic pain; M54.9 Dorsalgia, unspecified; R25.2 Cramp and spasm; R20.2 Paresthesia of skin; R53.1 Weakness; R32 Unspecified urinary incontinence; M19.90 Unspecified osteoarthritis, unspecified site; E78.5 Hyperlipidemia, unspecified; G43.909 Migraine, unspecified, not intractable, without status migrainosus; Z87.891 Personal history of nicotine dependence; Z86.73 Personal history of transient ischemic attack (TIA), and cerebral infarction without residual deficits; E03.9 Hypothyroidism, unspecified; Z82.5 Family history of asthma and other chronic lower respiratory diseases; Z83.3 Family history of diabetes mellitus; K21.9 Gastro-esophageal reflux disease without esophagitis; Z79.890 Hormone replacement therapy; Z79.899 Other long term (current) drug therapy; Z79.82 Long term (current) use of aspirin; Z88.8 Allergy status to other drugs, medicaments and biological substances
CPT/HCPCS: 97161; 86900; 86901; 80048; 85025; 86850; 72040; 22551; 22552; 22853 ×2; 20931; 20936; G0378; L0120; C1713; C1762 ×2; J2250; J0360; J1200; J0780; J0690 ×2; J2405 ×2; J3010; J1170 ×4; J0330; J2704; J2001

== ENCOUNTER 2022-08-01 11:26 | Emergency (ER) | payer BC ==
--- NOTE | 2022-08-01 12:36 | XR ---
EXAMINATION TYPE: XR chest 2V DATE OF EXAM: 08/01/2022 COMPARISON: NONE TECHNIQUE: PA and lateral views submitted. HISTORY: Cough FINDINGS: The lungs are clear and there is no pneumothorax, pleural effusion, or focal pneumonia. Postsurgica l changes overlying the cervical spine. Heart size normal. No overt failure. Degenerative changes of the spine. IMPRESSION: 1. No acute process.
[2022-08-01] MEDS ORDERED: IPRATROPIUM-ALBUTEROL 3 ML NEB INHALATION STA (15:35)
--- NOTE | 2022-08-01 15:39 | ED ---
URI HPI - General Chief Complaint: Upper Respiratory Infection Stated Complaint: Congestion,SOB,headache Time Seen by Provider: 08/01/22 15:05 Source: patient, RN notes reviewed Mode of arrival: ambulatory Limitations: no limitations - History of Present Illness Initial Comments: 49-year-old female history of thyroid disease and thyroid surgery in the past who is also a smoker who states that she had the onset 2 days ago of not feeling well she had a cough sore throat chills and sweats no overt fever. She states she has some body aches also with this. Her ears were popping. When she coughs no phlegm was produced. She denies any history of asthma or COPD. She does complain of a generalized headache along with this. She's also states she has a difficult time getting good breath. He complains some anterior chest wall tightness. This gets worse with movement and deep breathing. MD Complaint: cough, sore throat, nasal congestion, other - Related Data Home Medications Medication Instructions Recorded Confirmed Levothyroxine Sodium [Synthroid] 50 mcg PO DAILY 03/05/16 02/12/22 Cyclobenzaprine [Flexeril] 10 mg PO HS PRN 10/03/17 02/12/22 Levothyroxine Sodium [Synthroid] 200 mcg PO DAILY 10/03/17 02/12/22 Aspirin EC [Ecotrin] 325 mg PO DAILY 11/03/17 02/12/22 Butalbital/Acetaminophen 1 - 2 tab PO Q4H PRN 09/06/21 02/12/22 [Butalbital/Acetaminophen 50-300 Tab] Pregabalin [Lyrica] 150 mg PO BID 09/06/21 02/12/22 Previous Rx's Medication Instructions Recorded Cyclobenzaprine [Flexeril] 5 mg PO TID #90 tablet 02/13/22 HYDROcodone/APAP 10-325MG [[place] 1 tab PO Q4-6H PRN #56 tab 02/13/22 10-325] Pregabalin [Lyrica] 100 mg PO TID 3 Days #9 cap 02/13/22 Sennosides/Docusate Sodium [Senna 1 each PO DAILY PRN #20 tablet 02/13/22 Plus 8.6-50 mg Tablet] cefaDROXiL [Duricef] 500 mg PO Q12HR 5 Days #10 cap 02/13/22 polyethylene glycoL 3350 [Miralax] 17 gm PO DAILY PRN #527 gm 02/13/22 Albuterol Inhaler [Ventolin Hfa 2 puff INHALATION Q6HR PRN #1 each 08/01/22 Inhaler] Azithromycin [Zithromax Z Pack] 1 tab PO DIRECTED #6 tab 08/01/22 predniSONE [Deltasone] 20 mg PO BID #10 tab 08/01/22 Allergies Allergy/AdvReac Type Severity Reaction Status Date / Time gabapentin Allergy Rash/Hives Verified 08/01/22 12:18 Review of Systems ROS Statement: Those systems with pertinent positive or pertinent negative responses have been documented in the HPI. ROS Other: All systems not noted in ROS Statement are negative. Past Medical History Past Medical History: GERD/Reflux, Hyperlipidemia, Neurologic Disorder, Thyroid Disorder Additional Past Medical History / Comment(s): 2015 Possible TIA/CVA or migraine with double vision, currently being tested for multiple sclerosis, chronic low back pain-L1,2,3, frequent migraines, hypothyroid, recent sinus infection now resolved History of Any Multi-Drug Resistant Organisms: None Reported Past Surgical History: Section, Orthopedic Surgery Additional Past Surgical History / Comment(s): BONE SPURS REMOVED FROM BILAT SHOULDERS, C/S x2, PAIN CLINIC PROCEDURES, Neck surgery Past Anesthesia/Blood Transfusion Reactions: No Reported Reaction Additional Past Anesthesia/Blood Transfusion Reaction / Comment(s): Woke up during shoulder surgery. Past Psychological History: No Psychological Hx Reported Smoking Status: Current every day smoker Past Alcohol Use History: None Reported Past Drug Use History: Marijuana - Past Family History Father History Unknown: Yes Family Medical History: Diabetes Mellitus Additional Family Medical History / Comment(s): Father lived to be 78 yrs old. Mother History Unknown: Yes Family Medical History: COPD, Respiratory Disorder Additional Family Medical History / Comment(s): Mother of respiratory failure at the age of 69. General Exam - General Exam Comments Initial Comments: This is a well-developed well-nourished awake alert oriented 4 female Limitations: no limitations General appearance: alert, in no apparent distress Head exam: Present: atraumatic, normocephalic, normal inspection Eye exam: Present: normal appearance, PERRL, EOMI. Absent: scleral icterus, conjunctival injection, periorbital swelling ENT exam: Present: other (Some posterior pharyngeal hyperemia no definitive exudates. TMs are dull with mild erythema boggy nasal mucosa some discomfort in palpation percussion over the frontal sinuses.) Neck exam: Present: normal inspection, full ROM, lymphadenopathy, other (While tender lymphadenopathy bilaterally.) Respiratory exam: Present: wheezes, chest wall tenderness (Tennis palpation of the left and right anterior chest wall over the costal sternal margins no step- off no crepitation), decreased breath sounds Cardiovascular Exam: Present: regular rate, normal rhythm GI/Abdominal exam: Absent: distended, tenderness, guarding, rebound, rigid Extremities exam: Present: normal inspection, full ROM, normal capillary refill. Absent: tenderness, pedal edema, joint swelling, calf tenderness Back exam: Present: normal inspection Neurological exam: Present: alert, oriented X3, CN II-XII intact Psychiatric exam: Present: normal affect, normal mood Skin exam: Present: warm, dry, intact, normal color. Absent: rash Course Vital Signs 08/01/22 08/01/22 08/01/22 12:15 15:53 16:03 Temperature 97.8 F Pulse Rate 70 71 79 Respiratory 20 Rate Blood Pressure 128/76 O2 Sat by Pulse 100 Oximetry - Reevaluation(s) Reevaluation #1: 08/01/22 15:43 COVID-19 test as well as chest x-ray done before seeing the patient are both unremarkable Medical Decision Making - Medical Decision Making Reevaluation patient after nebulized treatment reveals increased aeration no wheezing she does feel improved this time. The patient did respond to the nipple is treatment I suspect a component of COPD. Patient will be discharged with antibiotics as well as a prescription for steroids and an inhaler. She is follow-up with Dr. weeks when necessary the presentation consistent with asthmatic bronchitis nasal pharyngitis. Additionally chest wall/muscle skull pain - Lab Data Lab Results 08/01/22 Range/Units 12:20 Coronavirus (PCR) Not Detected (Not Detectd) - Radiology Data Radiology results: report reviewed (Image reviewed as well as report no acute processes), image reviewed Disposition Clinical Impression: Asthmatic bronchitis, Nasopharyngitis acute Disposition: HOME SELF-CARE Condition: Good Instructions (If sedation given, give patient instructions): Upper Respiratory Infection (ED), Acute Bronchitis (ED), Bronchospasm (ED), Wheezing (ED) Prescriptions: predniSONE [Deltasone] 20 mg PO BID #10 tab Albuterol Inhaler [Ventolin Hfa Inhaler] 2 puff INHALATION Q6HR PRN #1 each PRN Reason: Dyspnea Azithromycin [Zithromax Z Pack] 1 tab PO DIRECTED #6 tab Is patient prescribed a controlled substance at d/c from ED?: No Referrals: Kim Osborne MD [Primary Care Provider] - 1-2 days Decision Date: 08/01/22 Decision Time: 16:34
[2022-08-01] MEDS ORDERED: predniSONE 50 MG TAB PO STA (16:31)
[2022-08-01] MEDS ORDERED: AZITHROMYCIN 500 MG TAB PO STA (16:31)
[2022-08-01] MEDS ORDERED: IBUPROFEN 200 MG TAB PO STA (16:31)
[2022-08-01 17:13] VITALS: BP 132/78; PULSE 78; RESP 18; TEMP 98.6
== END 2022-08-01 17:12 | disposition home or self-care (01) ==
LOC: EC 11:26
DX: J45.909 Unspecified asthma, uncomplicated (principal); J00 Acute nasopharyngitis [common cold]; K21.9 Gastro-esophageal reflux disease without esophagitis; E78.5 Hyperlipidemia, unspecified; E07.9 Disorder of thyroid, unspecified; F17.200 Nicotine dependence, unspecified, uncomplicated; F12.90 Cannabis use, unspecified, uncomplicated; Z88.8 Allergy status to other drugs, medicaments and biological substances; Z79.51 Long term (current) use of inhaled steroids; Z79.899 Other long term (current) drug therapy; Z79.82 Long term (current) use of aspirin; Z79.890 Hormone replacement therapy; Z20.822 Contact with and (suspected) exposure to COVID-19
CPT/HCPCS: 94640; 87635; 71046; 99285; J7512

== ENCOUNTER 2022-11-11 10:32 | Emergency (ER) | payer BC ==
[2022-11-11] MEDS ORDERED: KETOROLAC 15 MG/ML 1 ML VIAL IM STA (12:01)
[2022-11-11] MEDS ORDERED: ORPHENADRINE 30 MG/ML 2 ML VIAL IM STA (12:01)
--- NOTE | 2022-11-11 12:04 | ED ---
Back Pain [facility] - General Chief Complaint: Back Pain/Injury Stated Complaint: back pain Time Seen by Provider: 11/11/22 11:57 Source: patient, RN notes reviewed, old records reviewed Limitations: no limitations - History of Present Illness Initial Comments: Well-appearing 57-year-old female presents to the emergency room with left flank pain after slipping on ice yesterday. She states that she did not fall but twisted her back. Pain is worse with palpation or twisting. Denies any fevers, bowel or bladder incontinence. Does have a history of chronic back pain and is currently taking aspirin and Flexeril which she took last night. MD Complaint: back pain, other (slip did not fall) -: days(s) (1) Severity scale (1-10): 10 Worsens With: movement (twisting) Associated Symptoms: denies other symptoms Treatments Prior to Arrival: other (topical pain patch) - Related Data Home Medications Medication Instructions Recorded Confirmed Levothyroxine Sodium [Synthroid] 50 mcg PO DAILY 03/05/16 02/12/22 Cyclobenzaprine [Flexeril] 10 mg PO HS PRN 10/03/17 02/12/22 Levothyroxine Sodium [Synthroid] 200 mcg PO DAILY 10/03/17 02/12/22 Aspirin EC [Ecotrin] 325 mg PO DAILY 11/03/17 02/12/22 Butalbital/Acetaminophen 1 - 2 tab PO Q4H PRN 09/06/21 02/12/22 [Butalbital/Acetaminophen 50-300 Tab] Pregabalin [Lyrica] 150 mg PO BID 09/06/21 02/12/22 Previous Rx's Medication Instructions Recorded Cyclobenzaprine [Flexeril] 5 mg PO TID #90 tablet 02/13/22 HYDROcodone/APAP 10-325MG [[place] 1 tab PO Q4-6H PRN #56 tab 02/13/22 10-325] Pregabalin [Lyrica] 100 mg PO TID 3 Days #9 cap 02/13/22 Sennosides/Docusate Sodium [Senna 1 each PO DAILY PRN #20 tablet 02/13/22 Plus 8.6-50 mg Tablet] cefaDROXiL [Duricef] 500 mg PO Q12HR 5 Days #10 cap 02/13/22 polyethylene glycoL 3350 [Miralax] 17 gm PO DAILY PRN #527 gm 02/13/22 Albuterol Inhaler [Ventolin Hfa 2 puff INHALATION Q6HR PRN #1 each 08/01/22 Inhaler] Azithromycin [Zithromax Z Pack] 1 tab PO DIRECTED #6 tab 08/01/22 predniSONE [Deltasone] 20 mg PO BID #10 tab 08/01/22 Ibuprofen [Motrin] 600 mg PO Q8HR PRN #30 tab 11/11/22 Lidocaine 5% Patch [Lidoderm] 1 each TP Q12H PRN 14 Days #14 11/11/22 patch Allergies Allergy/AdvReac Type Severity Reaction Status Date / Time gabapentin Allergy Rash/Hives Verified 11/11/22 10:39 Review of Systems ROS Statement: Those systems with pertinent positive or pertinent negative responses have been documented in the HPI. ROS Other: All systems not noted in ROS Statement are negative. Past Medical History Past Medical History: GERD/Reflux, Hyperlipidemia, Neurologic Disorder, Thyroid Disorder Additional Past Medical History / Comment(s): 2016 Possible TIA/CVA or migraine with double vision, currently being tested for multiple sclerosis, chronic low back pain-L1,2,3, frequent migraines, hypothyroid, recent sinus infection now resolved History of Any Multi-Drug Resistant Organisms: None Reported Past Surgical History: Section, Orthopedic Surgery Additional Past Surgical History / Comment(s): BONE SPURS REMOVED FROM BILAT SHOULDERS, C/S x2, PAIN CLINIC PROCEDURES, Neck surgery Past Anesthesia/Blood Transfusion Reactions: No Reported Reaction Additional Past Anesthesia/Blood Transfusion Reaction / Comment(s): Woke up during shoulder surgery. Past Psychological History: No Psychological Hx Reported Smoking Status: Current every day smoker Past Alcohol Use History: None Reported Past Drug Use History: Marijuana - Past Family History Father History Unknown: Yes Family Medical History: Diabetes Mellitus Additional Family Medical History / Comment(s): Father lived to be 78 yrs old. Mother History Unknown: Yes Family Medical History: COPD, Respiratory Disorder Additional Family Medical History / Comment(s): Mother of respiratory failure at the age of 69. General Exam Limitations: no limitations General appearance: alert, in no apparent distress Head exam: Present: atraumatic Neck exam: Absent: tenderness, meningismus Respiratory exam: Absent: respiratory distress, accessory muscle use Cardiovascular Exam: Present: regular rate GI/Abdominal exam: Present: soft Back exam: Present: tenderness (Left paraspinal lumbar). Absent: CVA tenderness (R), CVA tenderness (L), vertebral tenderness, rash noted Expanded Back exam: Absent: saddle anesthesia Neurological exam: Present: alert, oriented X3, normal gait Psychiatric exam: Present: normal affect, normal mood Skin exam: Present: warm, dry, normal color. Absent: cyanosis, diaphoretic, petechiae, pallor Course Vital Signs 11/11/22 11/11/22 11/11/22 10:37 12:39 13:16 Temperature 98 F 98.1 F Pulse Rate 83 89 64 Respiratory 20 18 18 Rate Blood Pressure 148/86 152/83 135/82 O2 Sat by Pulse 97 97 98 Oximetry Medical Decision Making - Medical Decision Making Patient slipped on ice yesterday complaining of low back pain. Denies any spinal tenderness. Denies any fevers, bowel or bladder incontinence. A MRI of the Tspine and C-spine done for chronic pain in July 2021. Patient states this is more musculoskeletal. No focal neurological deficits. She does have chronic back pain and did arrive with a pain patch in place. took Flexeril prior to arrival. She was given Toradol and Norflex in the emergency room. She is agreeable to being discharged home and instructed to rest, ice and take Motrin and Tylenol for pain. Lidoderm patches prescribed. She was offered Flexeril but states has some at home. Case discussed with Dr. Elkins. Was pt. sent in by a medical professional or institution? @ -no Did you speak to anyone other than the patient for history? @ -no Did you review nursing and triage notes? @ -yes i agree Were old charts reviewed? @ -yes imaging Differential Diagnosis? @ -Differential Back Pain: Strain, zoster, cauda equina syndrome, epidural abscess, vertebral osteomyelitis, discitis, fracture, subluxation, disc herniation, DJD, spinal stenosis, this is not meant to be an all-inclusive list. What testing was considered but not performed? (CT, X-rays, U/S, labs)? Why? @ xr considered . Patient states that this is musculoskeletal, slip no fall. She has no vertebral pain, states did not fall. Pain relief with medications given. Is able to ambulate. What meds were considered but not given? Why? @ -none Did you discuss the management of the patient with other professionals? @ -no Did you reconcile home meds? @ -no Was smoking cessation discussed for >3mins.? @ - Was critical care preformed (if so, how long)? @ -no Were there social determinants of health that impacted care today? How? (Homelessness, low income, unemployed, alcoholism, drug addiction, transportation, low edu. Level, literacy, decrease access to med. care, alf, rehab)? @ -no Was there de-escalation of care discussed even if they declined? (Discuss DNR or withdrawal of care, Hospice)? @ -no What co-morbidities impacted this encounter? (DM, HTN, Smoking, COPD, CAD, Cancer, CVA, Hep., AIDS, mental health diagnosis, sleep apnea, morbid obesity)? @ -CVA, GERD, chronic back pain Was patient admitted / discharged? @ -discharged Undiagnosed new problem with uncertain prognosis? @ -no Drug Therapy requiring intensive monitoring for toxicity (Heparin, Nitro, Insulin, Cardizem)? @ -no Were any procedures done? @ -no Diagnosis/symptom? @ -Low back strain, musculoskeletal pain Acute, or Chronic, or Acute on Chronic? @ -acute Uncomplicated (without systemic symptoms) or Complicated (systemic symptoms)? @ -Uncomplicated Side effects of treatment? @ -[none] Exacerbation, Progression, or Severe Exacerbation] @ -[no] Poses a threat to life or bodily function? @ no Disposition Clinical Impression: Low back strain Disposition: HOME SELF-CARE Condition: Good Instructions (If sedation given, give patient instructions): Acute Low Back Pain (ED) Additional Instructions: Increase your fluid intake. Take Tylenol and Motrin as needed for any pain or discomfort. Use Flexeril as a muscle relaxer. You can also use the topical Lidoderm patches as prescribed. Follow-up with your primary care doctor this week. Return if any new or concerning symptoms. Prescriptions: Lidocaine 5% Patch [Lidoderm] 1 each TP Q12H PRN 14 Days #14 patch PRN Reason: Pain Ibuprofen [Motrin] 600 mg PO Q8HR PRN #30 tab PRN Reason: Pain Is patient prescribed a controlled substance at d/c from ED?: No Referrals: Kim Osborne MD [Primary Care Provider] - 1-2 days Time of Disposition: 12:52
[2022-11-11 13:14] VITALS: RESP 18
[2022-11-11 13:17] VITALS: BP 135/82; PULSE 64; TEMP 98.1
== END 2022-11-11 13:16 | disposition home or self-care (01) ==
LOC: EC 10:32
DX: S39.012A Strain of muscle, fascia and tendon of lower back, initial encounter (principal); E07.9 Disorder of thyroid, unspecified; F17.200 Nicotine dependence, unspecified, uncomplicated; F12.90 Cannabis use, unspecified, uncomplicated; Z79.890 Hormone replacement therapy; Z79.82 Long term (current) use of aspirin; Z88.8 Allergy status to other drugs, medicaments and biological substances; W18.40XA Slipping, tripping and stumbling without falling, unspecified, initial encounter; Y93.29 Activity, other involving ice and snow
CPT/HCPCS: 99284; 96372 ×2; J2360; J1885

== ENCOUNTER → 2023-01-13 | Outpatient (CLI) | payer BC ==
[2023-01-13 14:18] VITALS: BP 137/91; PULSE 81; RESP 18; TEMP 98.1
--- NOTE | 2023-01-13 14:59 | P.PAINPG ---
PQRS Measure Charge Sheet Comment: A 58 yr old female with a history of severe and chronic LBP x 14 yrs secondary to lumbar DDD and spondylosis with facet arthropathy without myelopathy presents today for evaluation s/p MICHAEL L3-L4. Pt states she experienced 40% pain relief s/p procedure. Pain level is provoked at 6 /10 in intensity, constant, localized in the L lumbar spine, sharp in character w shooting towards the L knee. Pain is provoked by bending, lifting. Pain is alleviated with PT integrated w massage x 6 wks in Dec 2022 which she pays out of pocket for extended appts, TENS unit use at PT, heat, ice, medications, topicals, laying supine and rest. Interventional pain procedures completed include L TFESI L4-L5, L2-L3, L3-L4 Patient is currently on Flexeril Patient denies any side effects of the medication(s), denies excessive drowsiness or sleepiness, denies suicidal ideation and reports that the current pain medication is helping to control the pain and improve activities of daily living. Patient denies any motor or sensory deficits. Patient denies any fever or night sweats, denies any change in the bowel movements or urination. Physical Examination: -Constitutional: Cooperative. Not in acute distress . - Neurologic: Cranial nerve II to XII intact. No focal neurological deficits. - Psychatric: Alert & oriented x 3. Matching mood & appropriate affect. Judgment and insight intact. - Musculoskeletal: Cervical spine: Muscle bulk/ tone/ strength in the bilateral upper extremities normal Vertebral body tenderness to palpation over Spurling test positive Distraction test positive Facet loading test positive TTP Thoracic spine Muscle bulk / tone/ strength in the bilateral paraspinal muscles normal Vertebral body tender to palpation over Facet loading test positive TTP Lumbar spine: Motor bulk/ tone/ strength lower extremities , thigh and legs : 5/5 Deep tendon reflexes : Normal Knee Jerk. Normal Ankle Jerk . Vertebral body tenderness to palpation over L3 Lumbar Facet Loading Test positive Straight Leg Raise: positive at 30 degrees right side/ left side Gaenslen's Test positive Sacral spine : Severe tenderness over the Sacroiliac joint: right side / left side Range of motion: Flexion of the lumbar spine <60 degrees Range of motion: Extension of the lumbar spine <20 degrees Gaenslen's Test positive right side / left side Naresh test: positive right side / left side Thigh Thrust Test positive right side / left side Sacral Thrust Test positive right side / left side Assessment and plan: Chronic LBP secondary to lumbar DDD, spondylosis with facet arthropathy without myelopathy Recommendation of L paramedian MICHAEL L3-L4 #1. May need a series of injections for optimal pain relief. Risks, benefits of procedure discussed and pt verbalized understanding. Admits to anticoagulant use or medical history of diabetes. Protocol for discontinuation/ continuation of medications adithya procedure discussed. All questions answered. I have spent less than 30 minutes on patient care today. Dr Gama was available by phone for the evaluation of this patient. The time was used to review the medical records including relevant urine studies and Prescription history (MAPs), review of the available imaging, evaluation and examination of the patient, coordination of care with the medical staff and if applicable refe rring physicians, as well as creation of the medical record PQRS Narrative: Smoking Status Current every day smoker Home Medications: Ambulatory Orders Levothyroxine Sodium [Synthroid] 50 mcg PO DAILY 03/05/16 Cyclobenzaprine [Flexeril] 10 mg PO HS PRN 10/03/17 Levothyroxine Sodium [Synthroid] 200 mcg PO DAILY 10/03/17 Aspirin EC [Ecotrin] 325 mg PO DAILY 11/03/17 Butalbital/Acetaminophen [Butalbital/Acetaminophen 50-300 Tab] 1 - 2 tab PO Q4H PRN 09/06/21 Albuterol Inhaler [Ventolin Hfa Inhaler] 2 puff INHALATION Q6HR PRN #1 each 08/01/22 Ibuprofen [Motrin] 600 mg PO Q8HR PRN #30 tab 11/11/22 Pregabalin [Lyrica] 75 mg PO BID 12/23/22 Rosuvastatin Calcium 10 mg PO DAILY 12/23/22 amLODIPine [Norvasc] 5 mg PO DAILY 12/23/22 Controlled Substance Measures - Controlled Substance Measures Is patient prescribed a controlled substance at discharge?: No
== END ==
LOC: PNWHC3 13:24
PROVIDERS: ATTEND Specialist
DX: M51.36 Other intervertebral disc degeneration, lumbar region (principal); M47.816 Spondylosis without myelopathy or radiculopathy, lumbar region; F17.200 Nicotine dependence, unspecified, uncomplicated; G89.29 Other chronic pain; Z88.9 Allergy status to unspecified drugs, medicaments and biological substances
CPT/HCPCS: 99211

== ENCOUNTER 2023-02-18 06:02 | Day surgery (SDC) | payer BC ==
[2023-02-13 15:38] VITALS: BMI 31.9
[2023-02-18 06:54] VITALS: RESP 18; TEMP 97.3
[2023-02-18] MEDS ORDERED: methylPREDNISolone ACETATE 40 MG/ML 1 ML VIAL ONE (06:59)
[2023-02-18] MEDS ORDERED: IOPAMIDOL M200 10 ML VIAL ONE (06:59)
[2023-02-18] MEDS ORDERED: LACTATED RINGERS 1,000 ML IV SCH (07:00)
--- NOTE | 2023-02-18 07:08 | P.PCN ---
Date of Procedure: 02/18/23 Preoperative Diagnosis: Lumbar radiculopathy Postoperative Diagnosis: Same Operative Findings: PREOPERATIVE DIAGNOSIS: lumbar radiculopathy POSTOPERATIVE DIAGNOSIS: Lumbar radiculopathy PROCEDURE 1. Lumbar epidural steroid injection under fluoroscopic guidance at the left L3 4 paramedian 2. Lumbar epidurogram. Imaging: Fluoroscopy was used, images where saved to the medical record Local only EBL: Minimal PROCEDURE INDICATION: The patient with low back pain and radiculitis symptoms unresponsive to conservative treatment. Fluoroscopy was used to optimize visualization of the needle placement and to maximize safety. PROCEDURE DESCRIPTION / TECHNIQUE: The patient was seen and identified in the preoperative area. Risks, benefits, complications including but not limited to infections, bleeding, allergic reaction to medications, nerve damage and incomplete pain relief, as well as alternatives to the procedure were discussed with the patient. The patient agreed to proceed with the procedure and signed the consent. IV was started if indicated above, and vital signs were stable. Patient was taken to the OR and time out was completed. The patient was placed in the prone position on procedure table and a pillow was placed under the abdomen to reduce lumbar lordosis. The lumbosacral area was prepped and draped in the usual sterile fashion. Vitals were closely monitored during the procedure. Using anterior-posterior fluoroscopy, the L3-L4 interlaminar space was identified and the skin over this site was marked and then infiltrated with 1% lidocaine subcutaneously. Subsequently, a 20-gauge Tuohy epidural needle was inserted and advanced toward the epidural space using the Loss of resistance technique and guided by AP and lateral fluoroscopy. The correct needle position in the epidural space was verified with the injection of 1 mL of Omnipaque 180 contrast to observe an acceptable epidurogram, after negative aspiration for blood and CSF and in the absence of paresthesias. Again after negative aspiration, a 3 ml mixture containing 40mg of depomedrol and 2 ml of preservati ve free Normal Saline was injected and a washout of epidurogram was seen. Needle was withdrawn intact, skin was cleansed, and bandages were applied. COMPLICATIONS: None DISPOSITION / PLANS: The patient was placed in a supine position and transferred to the recovery area in a stable condition for observation. There was no evidence of lower extremity motor or sensory deficit after the procedure. Patient was discharged from the recovery room after meeting discharge criteria. Home discharge instructions were given to the patient by the staff. The patient was reexamined prior to discharge. The patient will follow up as directed.
[2023-02-18 07:28] VITALS: BP 125/79; PULSE 69
--- NOTE | 2023-02-18 08:21 | FL ---
EXAMINATION TYPE: FL guided pain mgmt statistic DATE OF EXAM: 02/18/2023 HISTORY: Fluoroscopy time Total dose area product (DAP) mGy*cm? (or similar): .23806 DAP IMPRESSION: 1. Fluoroscopy time.
== END 2023-02-18 07:46 | disposition home or self-care (01) ==
LOC: ORPAIN 06:02
PROVIDERS: ATTEND Hospitalist
DX: M54.16 Radiculopathy, lumbar region (principal); Z79.82 Long term (current) use of aspirin
CPT/HCPCS: 62323; J1030; Q9966

== ENCOUNTER → 2023-03-05 | Outpatient (CLI) | payer BC ==
[2023-03-05 10:51] VITALS: BP 170/109; PULSE 79; RESP 18; TEMP 97.6
--- NOTE | 2023-03-05 15:02 | P.PAINPG ---
PQRS Measure Charge Sheet Comment: A 58 yr old female with a history of severe and chronic LBP secondary to lumbar DDD and spondylosis with facet arthropathy without myelopathy presents today for evaluation s/p MICHAEL L paramedian L3-L4. Pt states she experienced 80 % pain relief x 2 wks s/p procedure. Pain level is provoked at 6 /10 in intensity, constant, localized in the L lumbar spine, tight in character w shooting towards the LLE and L foot. Pain is provoked by standing for periods of 30 min or more, bending. Pain is alleviated with PT x 6 wks which ended in Jan 2023, massage therapy x 2 sessions which she could no longer afford, heat, ice, medications, topical, repositioning and rest. Interventional pain procedures completed include L paramedian MICHAEL L3-L4, L TFESI L2-L3 & L3-L4 Patient is currently on Tyl, Ibu, Flexeril Patient denies any side effects of the medication(s), denies excessive drowsiness or sleepiness, denies suicidal ideation and reports that the current pain medication is helping to control the pain and improve activities of daily living. Patient denies any motor or sensory deficits. Patient denies any fever or night sweats, denies any change in the bowel movements or urination. Physical Examination: -Constitutional: Cooperative. Not in acute distress . - Neurologic: Cranial nerve II to XII intact. No focal neurological deficits. - Psychatric: Alert & oriented x 3. Matching mood & appropriate affect. Judgment and insight intact. - Musculoskeletal: Cervical spine: Muscle bulk/ tone/ strength in the bilateral upper extremities normal Vertebral body tenderness to palpation over Spurling test positive Distraction test positive Facet loading test positive TTP Thoracic spine Muscle bulk / tone/ strength in the bilateral paraspinal muscles normal Vertebral body tender to palpation over Facet loading test positive TTP Lumbar spine: Motor bulk/ tone/ strength lower extremities , thigh and legs : 5/5 Deep tendon reflexes : Normal Knee Jerk. Normal Ankle Jerk . Vertebral body tenderness to palpation over L3 +Faust Test Lumbar Facet Loading Test positive Straight Leg Raise: positive at 30 degrees right side/ left side Gaenslen's Test positive Sacral spine : Severe tenderness over the Sacroiliac joint: right side / left side Range of motion: Flexion of the lumbar spine <60 degrees Range of motion: Extension of the lumbar spine <20 degrees Gaenslen's Test positive right side / left side Naresh test: positive right side / left side Thigh Thrust Test positive right side / left side Sacral Thrust Test positive right side / left side Assessment and plan: Chronic LBP secondary to lumbar DDD, spondylosis with facet arthropathy without myelopathy Recommendation of L TFESI L3-L4. May need a series of injections for optimal pain relief. Risks, benefits of procedure discussed and pt verbalized understanding. Admits to anticoagulant use or medical history of diabetes. Protocol for discontinuation/ continuation of medications adithya procedure discussed. Minimal anesthesia provided, if clinically indicated, consisting of Versed and Fentanyl. All questions answered. I have spent less than 30 minutes on patient care today. Dr Gama was available by phone for the evaluation of this patient. The time was used to review the medical records including relevant urine studies and Prescription h istory (MAPs), review of the available imaging, evaluation and examination of the patient, coordination of care with the medical staff and if applicable referring physicians, as well as creation of the medical record PQRS Narrative: Smoking Status Current every day smoker Home Medications: Ambulatory Orders Levothyroxine Sodium [Synthroid] 50 mcg PO DAILY 03/05/16 Cyclobenzaprine [Flexeril] 10 mg PO HS PRN 10/03/17 Levothyroxine Sodium [Synthroid] 200 mcg PO DAILY 10/03/17 Aspirin EC [Ecotrin] 325 mg PO DAILY 11/03/17 Butalbital/Acetaminophen [Butalbital/Acetaminophen 50-300 Tab] 1 - 2 tab PO Q4H PRN 09/06/21 Albuterol Inhaler [Ventolin Hfa Inhaler] 2 puff INHALATION Q6HR PRN #1 each 08/01/22 Ibuprofen [Motrin] 600 mg PO Q8HR PRN #30 tab 11/11/22 Pregabalin [Lyrica] 75 mg PO BID 12/23/22 Rosuvastatin Calcium 10 mg PO DAILY 12/23/22 amLODIPine [Norvasc] 5 mg PO DAILY 12/23/22 Controlled Substance Measures - Controlled Substance Measures Is patient prescribed a controlled substance at discharge?: No
== END ==
LOC: PNWHC3 09:28
PROVIDERS: ATTEND Specialist
DX: M51.36 Other intervertebral disc degeneration, lumbar region (principal); M47.816 Spondylosis without myelopathy or radiculopathy, lumbar region; G89.29 Other chronic pain; F17.200 Nicotine dependence, unspecified, uncomplicated; Z79.82 Long term (current) use of aspirin; Z88.8 Allergy status to other drugs, medicaments and biological substances
CPT/HCPCS: 99211

== ENCOUNTER 2023-03-21 20:18 | Emergency (ER) | payer BC ==
[2023-03-21 20:30] VITALS: RESP 20
[2023-03-21] MEDS ORDERED: KETOROLAC 15 MG/ML 1 ML VIAL IM STA (20:42)
[2023-03-21] MEDS ORDERED: DEXAMETHASONE SOD PHOSPHATE 10 MG/ML 1 ML VIAL IM STA (20:42)
[2023-03-21] MEDS ORDERED: ORPHENADRINE 30 MG/ML 2 ML VIAL IM STA (20:42)
[2023-03-21] MEDS ORDERED: LIDOCAINE 5% PATCH TOPICAL SCH (20:45)
--- NOTE | 2023-03-21 21:40 | ED ---
Back Pain HPI - General Chief Complaint: Back Pain/Injury Stated Complaint: back injury-fall Time Seen by Provider: 03/21/23 20:37 Source: patient Limitations: no limitations - History of Present Illness Initial Comments: 58-year-old female presenting with chief complaint of lower back pain. Patient admits to chronic pain from a previous injury. She states that at work today she had a trip and fall which worsened her pain. She is having no loss of bowel or bladder control or saddle paresthesia. She is having some radiation of pain down the leg. No chest pain, difficulty breathing, abdominal pain, urinary symptoms, fever, chills. - Related Data Home Medications Medication Instructions Recorded Confirmed Levothyroxine Sodium [Synthroid] 50 mcg PO DAILY 03/05/16 02/18/23 Cyclobenzaprine [Flexeril] 10 mg PO HS PRN 10/03/17 02/18/23 Levothyroxine Sodium [Synthroid] 200 mcg PO DAILY 10/03/17 02/18/23 Aspirin EC [Ecotrin] 325 mg PO DAILY 11/03/17 02/18/23 Butalbital/Acetaminophen 1 - 2 tab PO Q4H PRN 09/06/21 02/18/23 [Butalbital/Acetaminophen 50-300 Tab] Pregabalin [Lyrica] 75 mg PO BID 12/23/22 02/18/23 Rosuvastatin Calcium 10 mg PO DAILY 12/23/22 02/18/23 amLODIPine [Norvasc] 5 mg PO DAILY 12/23/22 02/18/23 Previous Rx's Medication Instructions Recorded Albuterol Inhaler [Ventolin Hfa 2 puff INHALATION Q6HR PRN #1 each 08/01/22 Inhaler] Ibuprofen [Motrin] 600 mg PO Q8HR PRN #30 tab 11/11/22 Cyclobenzaprine [Flexeril] 10 mg PO TID PRN #15 tab 03/21/23 Allergies Allergy/AdvReac Type Severity Reaction Status Date / Time gabapentin Allergy Rash/Hives Verified 03/21/23 20:30 Review of Systems ROS Statement: Those systems with pertinent positive or pertinent negative responses have been documented in the HPI. ROS Other: All systems not noted in ROS Statement are negative. Past Medical History Past Medical History: GERD/Reflux, Hyperlipidemia, Neurologic Disorder, Thyroid Disorder Additional Past Medical History / Comment(s): 2016 Possible TIA/CVA or migraine with double vision, currently being tested for multiple sclerosis, chronic low back pain-L1,2,3, frequent migraines, hypothyroid. History of Any Multi-Drug Resistant Organisms: None Reported Past Surgical History: Section, Orthopedic Surgery Additional Past Surgical History / Comment(s): BONE SPURS REMOVED FROM BILAT SHOULDERS, C/S x2, PAIN CLINIC PROCEDURES, Neck surgery Past Anesthesia/Blood Transfusion Reactions: No Reported Reaction Additional Past Anesthesia/Blood Transfusion Reaction / Comment(s): Woke up during shoulder surgery. Past Psychological History: No Psychological Hx Reported Smoking Status: Current every day smoker Past Alcohol Use History: Occasional Past Drug Use History: Marijuana - Past Family History Father History Unknown: Yes Family Medical History: Diabetes Mellitus Additional Family Medical History / Comment(s): Father lived to be 78 yrs old. Mother History Unknown: Yes Family Medical History: COPD, Respiratory Disorder Additional Family Medical History / Comment(s): Mother of respiratory failure at the age of 69. General Exam Limitations: no limitations General appearance: alert, in no apparent distress Head exam: Present: atraumatic, normocephalic, normal inspection Eye exam: Present: normal appearance, EOMI. Absent: scleral icterus, periorbital swelling Neck exam: Present: normal inspection, full ROM Extremities exam: Present: normal inspection, full ROM Back exam: Present: normal inspection, paraspinal tenderness Neurological exam: Present: alert, oriented X3, CN II-XII intact Psychiatric exam: Present: normal affect, normal mood Skin exam: Present: warm, dry, intact, normal color. Absent: rash Course Vital Signs 03/21/23 03/21/23 20:26 22:21 Temperature 98.5 F 97.8 F Pulse Rate 87 72 Respiratory 20 20 Rate Blood Pressure 135/86 145/88 O2 Sat by Pulse 97 98 Oximetry Medical Decision Making - Medical Decision Making Was pt. sent in by a medical professional or institution (, PA, RADIOLOGY EQUIPMENT SERVICER, urgent care, hospital, or long term...) When possible be specific @ -No Did you speak to anyone other than the patient for history (EMS, parent, family, police, friend...)? What history was obtained from this source @ -No Did you review nursing and triage notes (agree or disagree)? Why? @ -I reviewed and agree with nursing and triage notes Were old charts reviewed (outside hosp., previous admission, EMS record, old EKG, old radiological studies, urgent care reports/EKG's, long term records)? Report findings @ -No old charts were reviewed Differential Diagnosis (chest pain, altered mental status, abdominal pain women, abdominal pain men, vaginal bleeding, weakness, fever, dyspnea, syncope, headache, dizziness, GI bleed, back pain, seizure, CVA, palpatations, mental health, musculoskeletal)? @ - MDM Differential Back Pain: Strain, zoster, cauda equina syndrome, epidural abscess, vertebral osteomyelitis, discitis, fracture, subluxation, disc herniation, DJD, spinal stenosis, dissection, AAA, pancreatitis, peptic ulcer disease, pyelonephritis, kidney stone this is not meant to be an all-inclusive list. EKG interpreted by me (3pts min.). @ -As above X-rays interpreted by me (1pt min.). @ -X-ray shows no fracture CT interpreted by me (1pt min.). @ -None done U/S interpreted by me (1pt. min.). @ -None done What testing was considered but not performed or refused? (CT, X-rays, U/S, labs)? Why? @ -None What meds were considered but not given or refused? Why? @ -None Did you discuss the management of the patient with other professionals (professionals i.e. , PA, RADIOLOGY EQUIPMENT SERVICER, lab, RT, psych nurse, social sciences professor, tank insulator rubber, teacher, facilities officer, medical case worker)? Give summary @ -No Was smoking cessation discussed for >3mins.? @ -No Was critical care preformed (if so, how long)? @ -No Were there social determinants of health that impacted care today? How? (Homelessness, low income, unemployed, alcoholism, drug addiction, transportation, low edu. Level, literacy, decrease access to med. care, residential, rehab)? @ -No Was there de-escalation of care discussed even if they declined (Discuss DNR or withdrawal of care, Hospice)? DNR status @ -No What co-morbidities impacted this encounter? (DM, HTN, Smoking, COPD, CAD, Cancer, CVA, ARF, Chemo, Hep., AIDS, mental health diagnosis, sleep apnea, morbid obesity)? @ -None Was patient admitted / discharged? Hospital course, mention meds given and route, prescriptions, significant lab abnormalities, going to OR and other pertinent info. @ -58-year-old female with history of chronic back pain presents with chief complaint of lower back pain after trip and fall at work. No red flag symptoms. No urinary symptoms. Patient reports some improvement after Toradol, Norflex, Decadron, lidocaine patch. X-ray is negative for fracture. Patient follows with pain management will be calling them on Friday. Follow-up with PCP. Report back to ER with any new or worsening symptoms. Discussed return parameters and answered all questions. Patient conveyed verbal understanding and agreed to the plan. I discussed this case in detail with my attending Dr. Garces Undiagnosed new problem with uncertain prognosis? @ -No Drug Therapy requiring intensive monitoring for toxicity (Heparin, Nitro, Insulin, Cardizem)? @ -No Were any procedures done? @ -No Diagnosis/symptom? @ -Low Back strain Acute, or Chronic, or Acute on Chronic? @ -Acute on chronic Uncomplicated (without systemic symptoms) or Complicated (systemic symptoms)? @ -Uncomplicated Side effects of treatment? @ -No Exacerbation, Progression, or Severe Exacerbation? @ -No Poses a threat to life or bodily function? How? (Chest pain, [place], CA, pneumonia, PE, COPD, DKA, ARF, appy, cholecystitis, CVA, Diverticulitis, Homicidal, Suicidal, threat to staff... and all critical care pts) @ -No Disposition Clinical Impression: Strain of lumbar region Disposition: HOME SELF-CARE Condition: Good Instructions (If sedation given, give patient instructions): Low Back Strain (ED) Additional Instructions: Follow-up with PCP. Report back to ER with any new or worsening symptoms. Do not take cyclobenzaprine before driving or operating heavy machinery as it may cause drowsiness. Prescriptions: Cyclobenzaprine [Flexeril] 10 mg PO TID PRN #15 tab PRN Reason: Spasms Is patient prescribed a controlled substance at d/c from ED?: No Referrals: Kim Osborne MD [Primary Care Provider] - 1-2 days Time of Disposition: 22:04
--- NOTE | 2023-03-21 21:59 | XR ---
EXAMINATION TYPE: XR lumbar spine 2 or 3V DATE OF EXAM: 03/21/2023 CLINICAL HISTORY: Pain after fall TECHNIQUE: Three views of the lumbar spine are submitted. COMPARISON: Lumbar spine radiograph 12/29/2019 FINDINGS: There are 5 lumbar type vertebral bodies identified. The lumbar spine shows satisfactory alignment w ithout evidence of acute fracture or dislocation. Vertebral body heights are within normal limits. Multilevel displacement with endplate sclerosis and anterior osteophytosis. The overlying soft tissu e appears unremarkable. Left renal calculus measuring up to 6 mm. Vascular sclerosis. IMPRESSION: 1. No acute fracture or dislocation is seen in the lumbar spine. 2. Mild lumbar degenerative disc disease.
[2023-03-21 22:23] VITALS: BP 145/88; PULSE 72; TEMP 97.8
== END 2023-03-21 22:23 | disposition home or self-care (01) ==
LOC: EC 20:18
DX: S39.012A Strain of muscle, fascia and tendon of lower back, initial encounter (principal); E78.5 Hyperlipidemia, unspecified; E07.9 Disorder of thyroid, unspecified; F17.200 Nicotine dependence, unspecified, uncomplicated; F12.90 Cannabis use, unspecified, uncomplicated; Z79.890 Hormone replacement therapy; Z79.899 Other long term (current) drug therapy; Z88.8 Allergy status to other drugs, medicaments and biological substances; Z79.82 Long term (current) use of aspirin; W01.0XXA Fall on same level from slipping, tripping and stumbling without subsequent striking against object, initial encounter
CPT/HCPCS: 72100; 99283; 96372 ×3; J1100; J2360; J1885

== ENCOUNTER → 2023-06-25 | Outpatient (CLI) | payer BC ==
[2023-06-25 11:08] VITALS: BP 128/84; PULSE 81; RESP 15; TEMP 98.2
--- NOTE | 2023-06-25 13:22 | P.PAINPG ---
PQRS Measure Charge Sheet Comment: A 58 yr old female with a history of severe and chronic LBP secondary to lumbar DDD and spondylosis with facet arthropathy without myelopathy presents today for evaluation. Pain level is provoked at 7 /10 in intensity, constant, localized in the L lumbar spine, tight in character w shooting towards the LLE and L foot. Pain is provoked by standing for periods of 30 min or more, bending. Pain is alleviated with PT x 6 wks which ended in Jan 2023, massage therapy x 2 sessions which she could no longer afford, heat, ice, medications, topical, repositioning and rest. Oswestry axial pain score of 24. Interventional pain procedures completed include L paramedian MICHAEL L3-L4, L TFESI L2-L3 & L3-L4 Patient is currently on Tyl, Ibu, Flexeril Patient denies any side effects of the medication(s), denies excessive drowsiness or sleepiness, denies suicidal ideation and reports that the current pain medication is helping to control the pain and improve activities of daily living. Patient denies any motor or sensory deficits. Patient denies any fever or night sweats, denies any change in the bowel movements or urination. Physical Examination: -Constitutional: Cooperative. Not in acute distress . - Neurologic: Cranial nerve II to XII intact. No focal neurological deficits. - Psychatric: Alert & oriented x 3. Matching mood & appropriate affect. Judgment and insight intact. - Musculoskeletal: Cervical spine: Muscle bulk/ tone/ strength in the bilateral upper extremities normal Vertebral body tenderness to palpation over Spurling test positive Distraction test positive Facet loading test positive TTP Thoracic spine Muscle bulk / tone/ strength in the bilateral paraspinal muscles normal Vertebral body tender to palpation over Facet loading test positive TTP Lumbar spine: Motor bulk/ tone/ strength lower extremities , thigh and legs : 5/5 Deep tendon reflexes : Normal Knee Jerk. Normal Ankle Jerk . Vertebral body tenderness to palpation over L3 +Faust Test Lumbar Facet Loading Test positive Straight Leg Raise: positive at 30 degrees right side/ left side Gaenslen's Test positive Sacral spine : Severe tenderness over the Sacroiliac joint: right side / left side Range of motion: Flexion of the lumbar spine <60 degrees Range of motion: Extension of the lumbar spine <20 degrees Gaenslen's Test positive right side / left side Naresh test: positive right side / left side Thigh Thrust Test positive right side / left side Sacral Thrust Test positive right side / left side Assessment and plan: Chronic LBP secondary to lumbar DDD, spondylosis with facet arthropathy without myelopathy Recommendation of L paramedian MICHAEL L3-L4. May need a series of injections for optimal pain relief. Risks, benefits of procedure discussed and pt verbalized understanding. Admits to anticoagulant use or medical history of diabetes. Protocol for discontinuation/ continuation of medications adithya procedure discussed. Minimal anesthesia provided, if clinically indicated, consisting of Versed and Fentanyl. [place] 5/325mg #15 NR Use, side effects, adverse reactions and safe storage discussed and pt verbalized understanding. All questions answered. I have spent less than 30 minutes on patient care today. Dr Gama was available by phone for the evaluation of this patient. The time was used to review the medical records including relevant urine studies and Prescription history (MAPs), review of the available imaging, evaluation and examination of the patient, coordination of care with the medical staff and if applicable referring physicians, as well as creation of the medical record PQRS Narrative: Smoking Status Current every day smoker Home Medications: Ambulatory Orders Levothyroxine Sodium [Synthroid] 50 mcg PO DAILY 03/05/16 Cyclobenzaprine [Flexeril] 10 mg PO HS PRN 10/03/17 Levothyroxine Sodium [Synthroid] 200 mcg PO DAILY 10/03/17 Aspirin EC [Ecotrin] 325 mg PO DAILY 11/03/17 Butalbital/Acetaminophen [Butalbital/Acetaminophen 50-300 Tab] 1 - 2 tab PO Q4H PRN 09/06/21 Albuterol Inhaler [Ventolin Hfa Inhaler] 2 puff INHALATION Q6HR PRN #1 each 08/01/22 Ibuprofen [Motrin] 600 mg PO Q8HR PRN #30 tab 11/11/22 Pregabalin [Lyrica] 75 mg PO BID 12/23/22 Rosuvastatin Calcium 10 mg PO DAILY 12/23/22 amLODIPine [Norvasc] 5 mg PO DAILY 12/23/22 Cyclobenzaprine [Flexeril] 10 mg PO TID PRN #15 tab 03/21/23 Controlled Substance Measures - Controlled Substance Measures Is patient prescribed a controlled substance at discharge?: Yes When asked, does pt state using other controlled substances?: No If prescribed controlled substance>3 days was MAPS reviewed?: Prescribed <3 Days
== END ==
LOC: PNWHC3 10:42
PROVIDERS: ATTEND Specialist
DX: M51.36 Other intervertebral disc degeneration, lumbar region (principal); M47.816 Spondylosis without myelopathy or radiculopathy, lumbar region; G89.29 Other chronic pain; F17.200 Nicotine dependence, unspecified, uncomplicated; Z79.82 Long term (current) use of aspirin; Z88.8 Allergy status to other drugs, medicaments and biological substances
CPT/HCPCS: 99211

== ENCOUNTER 2023-06-27 10:37 | Emergency (ER) | payer BC ==
[2023-06-27 10:52] VITALS: RESP 18; TEMP 98.1
[2023-06-27] MEDS ORDERED: KETOROLAC 15 MG/ML 1 ML VIAL IVP STA (11:14)
[2023-06-27] MEDS ORDERED: HYDROmorphone 1 MG/ML 1 ML SYRINGE IVP STA (11:14)
[2023-06-27] MEDS ORDERED: ORPHENADRINE 30 MG/ML 2 ML VIAL IVP STA (11:14)
[2023-06-27] MEDS ORDERED: LIDOCAINE 5% PATCH TOPICAL ONE (11:15)
[2023-06-27] MEDS ORDERED: DEXAMETHASONE SOD PHOSPHATE 10 MG/ML 1 ML VIAL IVP STA (11:15)
--- NOTE | 2023-06-27 11:45 | ED ---
Back Pain [facility] - General Chief Complaint: Back Pain/Injury Stated Complaint: back/leg pain Time Seen by Provider: 06/27/23 11:06 Source: patient, RN notes reviewed Mode of arrival: ambulatory Limitations: no limitations - History of Present Illness Initial Comments: This is a 58-year-old female who presents to the emergency department for left lower back pain. Patient has a long-standing history of lower back pain, and states that yesterday it seemed to worsen, and is now radiating down the left leg and into the foot. Denies any new injuries. Also denies any loss of bowel/bladder control or saddle anesthesia. She does follow with pain management, and was given a prescription for [place] 2 days ago. She does also take ibuprofen and Flexeril at home. However, states that the combination of these medications is not effectively managing her symptoms. Denies any fevers, chills, sore throat, cough, dyspnea, chest pain, palpitations, abdominal pain, nausea, vomiting, diarrhea, or headaches. MD Complaint: back pain - Related Data Home Medications Medication Instructions Recorded Confirmed Levothyroxine Sodium [Synthroid] 50 mcg PO DAILY 03/05/16 02/18/23 Cyclobenzaprine [Flexeril] 10 mg PO HS PRN 10/03/17 02/18/23 Levothyroxine Sodium [Synthroid] 200 mcg PO DAILY 10/03/17 02/18/23 Aspirin EC [Ecotrin] 325 mg PO DAILY 11/03/17 02/18/23 Butalbital/Acetaminophen 1 - 2 tab PO Q4H PRN 09/06/21 02/18/23 [Butalbital/Acetaminophen 50-300 Tab] Pregabalin [Lyrica] 75 mg PO BID 12/23/22 02/18/23 Rosuvastatin Calcium 10 mg PO DAILY 12/23/22 02/18/23 amLODIPine [Norvasc] 5 mg PO DAILY 12/23/22 02/18/23 Previous Rx's Medication Instructions Recorded Albuterol Inhaler [Ventolin Hfa 2 puff INHALATION Q6HR PRN #1 each 08/01/22 Inhaler] Ibuprofen [Motrin] 600 mg PO Q8HR PRN #30 tab 11/11/22 Cyclobenzaprine [Flexeril] 10 mg PO TID PRN #15 tab 03/21/23 HYDROcodone/APAP 5-325MG [[place] 1 tab PO Q4HR PRN 3 Days #15 tab 06/25/23 5-325] Lidocaine 5% Patch [Lidoderm 5% 1 patch TOPICAL DAILY PRN #30 patch 06/27/23 Patch] methocarbamoL [Robaxin-750] 1,500 mg PO QID PRN #30 tab 06/27/23 predniSONE 50 mg PO DAILY 5 Days #5 tab 06/27/23 Allergies Allergy/AdvReac Type Severity Reaction Status Date / Time gabapentin Allergy Rash/Hives Verified 06/27/23 10:52 Review of Systems ROS Statement: Those systems with pertinent positive or pertinent negative responses have been documented in the HPI. ROS Other: All systems not noted in ROS Statement are negative. Past Medical History Past Medical History: GERD/Reflux, Hyperlipidemia, Neurologic Disorder, Thyroid Disorder Additional Past Medical History / Comment(s): 2015 Possible TIA/CVA or migraine with double vision, currently being tested for multiple sclerosis, chronic low back pain-L1,2,3, frequent migraines, hypothyroid. History of Any Multi-Drug Resistant Organisms: None Reported Past Surgical History: Section, Orthopedic Surgery Additional Past Surgical History / Comment(s): BONE SPURS REMOVED FROM BILAT SHOULDERS, C/S x2, PAIN CLINIC PROCEDURES, Neck surgery Past Anesthesia/Blood Transfusion Reactions: No Reported Reaction Additional Past Anesthesia/Blood Transfusion Reaction / Comment(s): Woke up during shoulder surgery. Past Psychological History: No Psychological Hx Reported Smoking Status: Current every day smoker Past Alcohol Use History: Occasional Past Drug Use History: Marijuana - Past Family History Father History Unknown: Yes Family Medical History: Diabetes Mellitus Additional Family Medical History / Comment(s): Father lived to be 78 yrs old. Mother History Unknown: Yes Family Medical History: COPD, Respiratory Disorder Additional Family Medical History / Comment(s): Mother of respiratory failure at the age of 69. General Exam Limitations: physical limitation General appearance: alert, in distress Head exam: Present: atraumatic, normocephalic, normal inspection Respiratory exam: Present: normal lung sounds bilaterally. Absent: respiratory distress, wheezes, rales, rhonchi, stridor Cardiovascular Exam: Present: regular rate, normal rhythm, normal heart sounds. Absent: systolic murmur, diastolic murmur, rubs, gallop, clicks Back exam: Present: tenderness (left lower back) Neurological exam: Present: alert, oriented X3, CN II-XII intact Psychiatric exam: Present: normal affect, normal mood Skin exam: Present: warm, dry, intact, normal color. Absent: rash Course Vital Signs 06/27/23 06/27/23 10:49 12:47 Temperature 98.1 F Pulse Rate 84 64 Respiratory 18 18 Rate Blood Pressure 144/91 138/98 O2 Sat by Pulse 99 97 Oximetry Medical Decision Making - Medical Decision Making This is a 58-year-old female who presents to the emergency department for lower back pain. Was pt. sent in by a medical professional or institution? @ -No Did you speak to anyone other than the patient for history? @ -No Did you review nursing and triage notes? @ -Yes, and I agree, it is accurate with regards to the patient's symptoms. Were old charts reviewed? @ -No Differential Diagnosis? @ -Differential Back Pain: Strain, zoster, cauda equina syndrome, epidural abscess, vertebral osteomyelitis, discitis, fracture, subluxation, disc herniation, DJD, spinal stenosis, dissection, AAA, pancreatitis, peptic ulcer disease, pyelonephritis, kidney stone, this is not meant to be an all-inclusive list. EKG interpreted by me (3pts min.)? @ -Not obtained X-rays interpreted by me (1pt min.)? @ -Not obtained CT interpreted by me (1pt min.)? @ -Not obtained U/S interpreted by me (1pt. min.)? @ -Not obtained What testing was considered but not performed? (CT, X-rays, U/S, labs)? Why? @ -None What meds were considered but not given? Why? @ -None Did you discuss the management of the patient with other professionals? @ -No Did you reconcile home meds? @ -No Was smoking cessation discussed for >3mins.? @ -No Was critical care preformed (if so, how long)? @ -No Were there social determinants of health that impacted care today? How? (Homelessness, low income, unemployed, alcoholism, drug addiction, transportation, low edu. Level, literacy, decrease access to med. care, correction, rehab)? @ -No Was there de-escalation of care discussed even if they declined? (Discuss DNR or withdrawal of care, Hospice)? @ -No What co-morbidities impacted this encounter? (DM, HTN, Smoking, COPD, CAD, Cancer, CVA, Hep., AIDS, mental health diagnosis, sleep apnea, morbid obesity)? @ -Lumbar DDD Was patient admitted / discharged? @ -Discharged. Given that there were no new injuries and because this is a long-standing issue for her, no updated imaging was obtained. Patient is not exhibiting any red flag signs or symptoms. Her pain was well controlled in the emergency department. We'll treat the flare up with a 5 day course of predni sone, and she was also given a prescription for Robaxin. Advised she try taking this in place of the Flexeril to see if it is more effective, however she is instructed to avoid taking them together. She was also reminded that this is sedating and she should avoid driving or operating machinery when taking this. Prescription for lidocaine patches provided as well. She will otherwise follow up with pain management and her PCP. Undiagnosed new problem with uncertain prognosis? @ -None Drug Therapy requiring intensive monitoring for toxicity (Heparin, Nitro, Insulin, Cardizem)? @ -None Were any procedures done? @ -None Diagnosis/symptom? @ -Lower back pain Acute, or Chronic, or Acute on Chronic? @ -Acute on chronic Uncomplicated (without systemic symptoms) or Complicated (systemic symptoms)? @ -Uncomplicated Side effects of treatment? @ -None Exacerbation, Progression, or Severe Exacerbation] @ -Exacerbation Poses a threat to life or bodily function? @ -No Return precautions reviewed in depth, the patient is instructed to return to the emergency department with any new, worsening, or concerning symptoms. Patient verbalized understanding. This case was discussed in detail with the attending ED physician, Dr. Grijalva. Presentation, findings, and treatment plan discussed in detail as well. Disposition Clinical Impression: Left lumbar radiculopathy Disposition: HOME SELF-CARE Instructions (If sedation given, give patient instructions): Acute Low Back Pain (ED) Additional Instructions: Return to the emergency department with any new, worsening, or concerning symptoms. Take the prednisone daily for 5 days, with your first dose beginning tomorrow, as you received a dose of steroids in the emergency department today. If your insurance will cover these lidocaine patches you can apply them daily as well. Try taking the Robaxin in place of the Flexeril to see if it is more effective, however avoid taking them together. Follow up with your primary care provider in 1-2 days. Prescriptions: Lidocaine 5% Patch [Lidoderm 5% Patch] 1 patch TOPICAL DAILY PRN #30 patch PRN Reason: Pain predniSONE 50 mg PO DAILY 5 Days #5 tab methocarbamoL [Robaxin-750] 1,500 mg PO QID PRN #30 tab PRN Reason: Pain Is patient prescribed a controlled substance at d/c from ED?: No Referrals: Kim Osborne MD [Primary Care Provider] - 1-2 days
[2023-06-27 12:49] VITALS: BP 138/98; PULSE 64
== END 2023-06-27 12:49 | disposition home or self-care (01) ==
LOC: EC 10:37
DX: M54.16 Radiculopathy, lumbar region (principal); E78.5 Hyperlipidemia, unspecified; E03.9 Hypothyroidism, unspecified; F17.200 Nicotine dependence, unspecified, uncomplicated; F12.90 Cannabis use, unspecified, uncomplicated; Z88.8 Allergy status to other drugs, medicaments and biological substances; Z79.890 Hormone replacement therapy; Z79.82 Long term (current) use of aspirin; Z79.899 Other long term (current) drug therapy
CPT/HCPCS: 99283; 96374; 96375 ×3; J1100; J2360; J1170; J1885

== ENCOUNTER → 2023-08-12 | Outpatient (CLI) | payer BC ==
--- NOTE | 2023-08-12 10:15 | MR ---
EXAMINATION TYPE: MR lumbar spine wo con DATE OF EXAM: 08/12/2023 9:44 AM CLINICAL INDICATION:Female, 58 years old with history of M51.36 OTHER INTERVERTEBRAL DISC DEGENERATIO N; COMPARISON: None TECHNIQUE: Multi planar, multi sequence imaging was performed utilizing: T1-weighted, T2-weighted, a nd turbo inversion recovery imaging of the lumbar spine. IV Contrast: (None if empty) FINDINGS: Alignment: The lumbar vertebral bodies have preserved heights and alignment. Cord: The conus medullaris and the distal spinal cord appear unremarkable with regards to their signa l intensity and morphology. Bones/Discs: Mild degeneration changes throughout the spine with osteophyte formation and facet joint arthropathy. Multilevel disc desiccation is present. T12-L1: No evidence of significant spinal canal stenosis or neural foraminal stenosis. L1-L2: No evidence of significant spinal canal stenosis or neural foraminal stenosis. L2-L3: Disc bulge and facet joint arthropathy result in mild spinal canal and mild bilateral neural f oraminal stenosis. L3-L4: Disc bulge and facet joint arthropathy result in mild spinal canal and moderate bilateral neur al foraminal stenosis. L4-L5: Disc bulge with possible central disc protrusion without significant spinal canal stenosis. An d facet joint arthropathy result in mild spinal canal and mild bilateral neural foraminal stenosis. L5-S1: The disc is rounded posterior morphology without significant spinal canal stenosis. Facet join t arthropathy with mild bilateral neural foraminal stenosis. No significant spinal canal or neural foraminal stenosis in the remainder of the visualized levels. Other findings: None. IMPRESSION: 1. No definitive evidence of significant spinal canal stenosis. Possible small central disc protrusi on at L4-L5 without significant spinal canal stenosis. 2. Multilevel disc degeneration with associated osteoarthritic changes worse at L2-L3 and L3-L4.
== END | disposition home or self-care (01) ==
LOC: RADMRIMAIN 08:45
PROVIDERS: ATTEND Specialist
DX: M51.36 Other intervertebral disc degeneration, lumbar region (principal); M47.816 Spondylosis without myelopathy or radiculopathy, lumbar region
CPT/HCPCS: 72148

== ENCOUNTER 2023-08-26 07:22 | Day surgery (SDC) | payer BC ==
[~2023-08-26 07:22] MED LIST changes: -ACETAMINOPHEN TAB 500 MG TAB PO PRN; +LACTATED RINGERS 1,000 ML IV SCH; -ONDANSETRON 4 MG/2 ML VIAL IVP PRN; -TRANEXAMIC ACID IN NACL,ISO-OS 1,000 MG in SALINE 1 100ML.BAG IVPB PRN
[2023-08-26] MEDS ORDERED: IOPAMIDOL M200 10 ML VIAL ONE (08:01)
[2023-08-26] MEDS ORDERED: methylPREDNISolone ACETATE 40 MG/ML 1 ML VIAL ONE (08:01)
--- NOTE | 2023-08-26 08:08 | P.PCN ---
Date of Procedure: 08/26/23 Description of Procedure: PREOPERATIVE DIAGNOSIS: lumbar radiculopathy POSTOPERATIVE DIAGNOSIS: Lumbar radiculopathy PROCEDURE 1. Lumbar epidural steroid injection under fluoroscopic guidance at the L4-L5 level. 2. Lumbar epidurogram. Imaging: Fluoroscopy was used, images where saved to the medical record ANESTHESIA: Local only EBL: Minimal PROCEDURE INDICATION: The patient with low back pain and radiculitis symptoms unresponsive to conservative treatment. Fluoroscopy was used to optimize visualization of the needle placement and to maximize safety. PROCEDURE DESCRIPTION / TECHNIQUE: The patient was seen and identified in the preoperative area. Risks, benefits, complications including but not limited to infections, bleeding, allergic re action to medications, nerve damage and incomplete pain relief, as well as alternatives to the procedure were discussed with the patient. The patient agreed to proceed with the procedure and signed the consent. IV was started if indicated above, and vital signs were stable. Patient was taken to the OR and time out was completed. The patient was placed in the prone position on procedure table and a pillow was placed under the abdomen to reduce lumbar lordosis. The lumbosacral area was prepped and draped in the usual sterile fashion. Vitals were closely monitored during the procedure. Using anterior-posterior fluoroscopy, the L4-L5 interlaminar space was identified and the skin over this site was marked and then infiltrated with 1% lidocaine subcutaneously. Subsequently, a 20-gauge Tuohy epidural needle was inserted and advanced toward the epidural space using the Loss of resistance technique and guided by AP and lateral fluoroscopy. The correct needle position in the epidural space was verified with the injection of 1 mL of Omnipaque 180 contrast to observe an acceptable epidurogram, after negative aspiration for blood and CSF and in the absence of paresthesias. Again after negative aspiration, a 3 ml mixture containing 40mg of depomedrol and 2 ml of preservative free Normal Saline was injected and a washout of epidurogram was seen. Needle was withdrawn intact, skin was cleansed, and bandages were applied. COMPLICATIONS: None DISPOSITION / PLANS: The patient was placed in a supine position and transferred to the recovery area in a stable condition for observation. There was no evidence of lower extremity motor or sensory deficit after the procedure. Patient was discharged from the recovery room after meeting discharge criteria. Home discharge instructions were given to the patient by the staff. The patient was reexamined prior to discharge. The patient will follow up as directed.
[2023-08-26 08:10] VITALS: RESP 16; TEMP 96.6
[2023-08-26 08:36] VITALS: BP 144/92; PULSE 75
--- NOTE | 2023-08-26 08:56 | FL ---
EXAMINATION TYPE: FL guided pain mgmt statistic DATE OF EXAM: 08/26/2023 HISTORY: Fluoroscopy time Total dose area product (DAP) in uGy*m?, mGy*cm? (or similar): 0.81672 IMPRESSION: 1. Fluoroscopy time.
== END 2023-08-26 08:30 | disposition home or self-care (01) ==
LOC: ORPAIN 07:22
PROVIDERS: ATTEND Specialist
DX: M54.16 Radiculopathy, lumbar region (principal); Z88.9 Allergy status to unspecified drugs, medicaments and biological substances; Z79.82 Long term (current) use of aspirin
CPT/HCPCS: 62323; J1030; Q9966

== ENCOUNTER → 2023-10-01 | Outpatient (CLI) | payer BC ==
[2023-10-01 09:47] VITALS: BP 141/82; PULSE 77; RESP 15; TEMP 97.2
--- NOTE | 2023-10-01 12:54 | P.PAINPG ---
Objective - Vital Signs Vital signs: Vital Signs Temp 97.2 F L 10/01/23 09:40 Pulse 77 10/01/23 09:40 Resp 15 10/01/23 09:40 BP 141/82 10/01/23 09:40 Pulse Ox 98 10/01/23 09:40 FiO2 Intake & Output 09/30/23 10/01/23 10/01/23 18:59 06:59 18:59 Weight 89.358 kg PQRS Measure Charge Sheet Mode of Arrival: Ambulatory Comment: A 58 yr old female with a history of severe and chronic LBP secondary to lumba r DDD and spondylosis with facet arthropathy without myelopathy presents today for evaluation s/p MICHAEL L4-L5. Pt states she experienced 50 % pain relief x 5 wks s/p procedure. Pain level is provoked at 7 /10 in intensity, constant, localized in the L lumbar spine, tight in character w shooting towards the LLE and L foot. Pain is provoked by standing for periods of 30 min or more, bending. Pain is a lleviated with PT x 6 wks which ended in Jan 2023, massage therapy x 2 sessions which she could no longer afford, heat, ice, medications, topical, repositioning and rest. Oswestry axial pain score of 23. Interventional pain procedures completed include L paramedian MICHAEL L3-L4, L TFESI L2-L3 & L3-L4, MICHAEL L4-L5 x1 Patient is currently on Tyl, Ibu, Flexeril Patient denies any side effects of the medication(s), denies excessive drowsiness or sleepiness, denies suicidal ideation and reports that the current pain medication is helping to control the pain and improve activities of daily living. Patient denies any motor or sensory deficits. Patient denies any fever or night sweats, denies any change in the bowel movements or urination. Physical Examination: -Constitutional: Cooperative. Not in acute distress . - Neurologic: Cranial nerve II to XII intact. No focal neurological deficits. - Psychatric: Alert & oriented x 3. Matching mood & appropriate affect. Judgment and insight intact. - Musculoskeletal: Cervical spine: Muscle bulk/ tone/ strength in the bilateral upper extremities normal Vertebral body tenderness to palpation over Spurling test positive Distraction test positive Facet loading test positive TTP Thoracic spine Muscle bulk / tone/ strength in the bilateral paraspinal muscles normal Vertebral body tender to palpation over Facet loading test positive TTP Lumbar spine: Motor bulk/ tone/ strength lower extremities , thigh and legs : 5/5 Deep tendon reflexes : Normal Knee Jerk. Normal Ankle Jerk . Vertebral body tenderness to palpation over L5 +Faust Test Lumbar Facet Loading Test positive Straight Leg Raise: positive at 30 degrees right side/ left side Gaenslen's Test positive Sacral spine : Severe tenderness over the Sacroiliac joint: right side / left side Range of motion: Flexion of the lumbar spine <60 degrees Range of motion: Extension of the lumbar spine <20 degrees Gaenslen's Test positive right side / left side Naresh test: positive right side / left side Thigh Thrust Test positive right side / left side Sacral Thrust Test positive right side / left side Assessment and plan: Chronic LBP secondary to lumbar DDD, spondylosis with facet arthropathy without myelopathy Will follow up w continuation of facet blocks at out side facility. All questions answered. I have spent less than 30 minutes on patient care today. Dr Gama was available by phone for the evaluation of this patient. The time was used to review the medical records including relevant urine studies and Prescription history (MAPs), review of the available imaging, evaluation and examination of the patient, coordination of care with the medical staff and if applicable referring physicians, as well as creation of the medical record - Pain Location Left Lower Back Non-Pharmacological Interventions: Heat, Ice, Inactivity, Position/Reposition, Sitting, Standing Pharmacological Interventions: Epidural, Scheduled Medication PQRS Narrative: Smoking Status Current every day smoker Blood Pressure 141/82 Pain Intensity [Left Lower 5 Back] Scale Used Numeric (1 - 10) Home Medications: Ambulatory Orders Levothyroxine Sodium [Synthroid] 50 mcg PO DAILY 03/05/16 Levothyroxine Sodium [Synthroid] 200 mcg PO DAILY 10/03/17 Aspirin EC [Ecotrin] 325 mg PO DAILY 11/03/17 Butalbital/Acetaminophen [Butalbital/Acetaminophen 50-300 Tab] 1 - 2 tab PO Q4H PRN 09/06/21 Albuterol Inhaler [Ventolin Hfa Inhaler] 2 puff INHALATION Q6HR PRN #1 each 08/01/22 Ibuprofen [Motrin] 600 mg PO Q8HR PRN #30 tab 11/11/22 Rosuvastatin Calcium 10 mg PO DAILY 12/23/22 amLODIPine [Norvasc] 5 mg PO DAILY 12/23/22 Cyclobenzaprine [Flexeril] 10 mg PO TID PRN #15 tab 03/21/23 Controlled Substance Measures - Controlled Substance Measures Is patient prescribed a controlled substance at discharge?: No
== END ==
LOC: PNWHC3 09:13
PROVIDERS: ATTEND Specialist
DX: M51.36 Other intervertebral disc degeneration, lumbar region (principal); F17.200 Nicotine dependence, unspecified, uncomplicated; M47.816 Spondylosis without myelopathy or radiculopathy, lumbar region; Z88.6 Allergy status to analgesic agent
CPT/HCPCS: 99211

== ENCOUNTER 2023-11-24 12:05 | Emergency (ER) | payer BC ==
--- NOTE | 2023-11-24 13:00 | ED ---
Back Pain HPI - General Chief Complaint: Back Pain/Injury Stated Complaint: Back Pain Time Seen by Provider: 11/24/23 12:21 Source: patient, RN notes reviewed Mode of arrival: ambulatory Limitations: no limitations - History of Present Illness Initial Comments: This is a 58-year-old female who presents to the emergency department for back pain. Patient has chronic back pain, and states that she is experiencing an exacerbation of her current injury that started last night. She is unable to get comfortable. Denies any new injuries. States that this is a fairly common occurrence for her. Currently takes Flexeril and ibuprofen for pain relief, which has not been effective. She also receives epidural injections on a set schedule. She is unable to see her neurologist until 12/09. Reports left lower back pain with radiation down the left lower extremity. Denies any loss of bowel/bladder control or saddle anesthesia. MD Complaint: back pain - Related Data Home Medications Medication Instructions Recorded Confirmed Levothyroxine Sodium [Synthroid] 50 mcg PO DAILY 03/05/16 10/01/23 Levothyroxine Sodium [Synthroid] 200 mcg PO DAILY 10/03/17 10/01/23 Aspirin EC [Ecotrin] 325 mg PO DAILY 11/03/17 10/01/23 Butalbital/Acetaminophen 1 - 2 tab PO Q4H PRN 09/06/21 10/01/23 [Butalbital/Acetaminophen 50-300 Tab] Rosuvastatin Calcium 10 mg PO DAILY 12/23/22 10/01/23 amLODIPine [Norvasc] 5 mg PO DAILY 12/23/22 10/01/23 Previous Rx's Medication Instructions Recorded Albuterol Inhaler [Ventolin Hfa 2 puff INHALATION Q6HR PRN #1 each 08/01/22 Inhaler] Ibuprofen [Motrin] 600 mg PO Q8HR PRN #30 tab 11/11/22 Cyclobenzaprine [Flexeril] 10 mg PO TID PRN #15 tab 03/21/23 Naproxen Sodium 550 mg PO BID PRN #30 tablet 11/24/23 methocarbamoL [Robaxin-750] 1,500 mg PO TID PRN #30 tab 11/24/23 Allergies Allergy/AdvReac Type Severity Reaction Status Date / Time gabapentin Allergy Rash/Hives Verified 11/24/23 12:17 Review of Systems ROS Statement: Those systems with pertinent positive or pertinent negative responses have been documented in the HPI. ROS Other: All systems not noted in ROS Statement are negative. Past Medical History Past Medical History: CVA/TIA, GERD/Reflux, Hyperlipidemia, Neurologic Disorder, Thyroid Disorder Additional Past Medical History / Comment(s): 2016 Possible TIA/CVA or migraine with double vision, currently being tested for multiple sclerosis, chronic low back pain-L1,2,3, frequent migraines, hypothyroid. History of Any Multi-Drug Resistant Organisms: None Reported Past Surgical History: Section, Orthopedic Surgery Additional Past Surgical History / Comment(s): BONE SPURS REMOVED FROM BILAT SHOULDERS, C/S x2, PAIN CLINIC PROCEDURES, Neck surgery Past Anesthesia/Blood Transfusion Reactions: No Reported Reaction Additional Past Anesthesia/Blood Transfusion Reaction / Comment(s): Woke up during shoulder surgery. Past Psychological History: No Psychological Hx Reported Smoking Status: Current every day smoker Past Alcohol Use History: Occasional Past Drug Use History: Marijuana - Past Family History Father History Unknown: Yes Family Medical History: Diabetes Mellitus Additional Family Medical History / Comment(s): Father lived to be 78 yrs old. Mother History Unknown: Yes Family Medical History: COPD, Respiratory Disorder Additional Family Medical History / Comment(s): Mother of respiratory failure at the age of 69. General Exam Limitations: no limitations General appearance: alert, in distress Head exam: Present: atraumatic, normocephalic, normal inspection Respiratory exam: Present: normal lung sounds bilaterally. Absent: respiratory distress, wheezes, rales, rhonchi, stridor Cardiovascular Exam: Present: regular rate, normal rhythm, normal heart sounds. Absent: systolic murmur, diastolic murmur, rubs, gallop, clicks Back exam: Present: tenderness (Left lower back) Neurological exam: Present: alert, oriented X3, CN II-XII intact Psychiatric exam: Present: normal affect, normal mood Skin exam: Present: warm, dry, intact, normal color. Absent: rash Course Vital Signs 11/24/23 11/24/23 12:15 14:20 Temperature 98 F 98.1 F Pulse Rate 87 78 Respiratory 20 18 Rate Blood Pressure 136/78 132/70 O2 Sat by Pulse 97 98 Oximetry Medical Decision Making - Medical Decision Making This is a 58-year-old female who presents to the emergency department for back pain. Was pt. sent in by a medical professional or institution? @ -No Did you speak to anyone other than the patient for history? @ -No Did you review nursing and triage notes? @ -Yes, and I agree, it is accurate with regards to the patient's symptoms. Were old charts reviewed? @ -No Differential Diagnosis? @ -Differential Back Pain: Strain, zoster, cauda equina syndrome, epidural abscess, vertebral osteomyelitis, discitis, fracture, subluxation, disc herniation, DJD, spinal stenosis, dissection, AAA, pancreatitis, peptic ulcer disease, pyelonephritis, kidney stone, this is not meant to be an all-inclusive list. EKG interpreted by me (3pts min.)? @ -Not obtained X-rays interpreted by me (1pt min.)? @ -Not obtained CT interpreted by me (1pt min.)? @ -Not obtained U/S interpreted by me (1pt. min.)? @ -Not obtained What testing was considered but not performed? (CT, X-rays, U/S, labs)? Why? @ -None What meds were considered but not given? Why? @ -None Did you discuss the management of the patient with other professionals? @ -No Did you reconcile home meds? @ -No Was smoking cessation discussed for >3mins.? @ -No Was critical care preformed (if so, how long)? @ -No Were there social determinants of health that impacted care today? How? (Homelessness, low income, unemployed, alcoholism, drug addiction, transportation, low edu. Level, literacy, decrease access to med. care, snf, rehab)? @ -No Was there de-escalation of care discussed even if they declined? (Discuss DNR or withdrawal of care, Hospice)? @ -No What co-morbidities impacted this encounter? (DM, HTN, Smoking, COPD, CAD, Cancer, CVA, Hep., AIDS, mental health diagnosis, sleep apnea, morbid obesity)? @ -Chronic back pain Was patient admitted / discharged? @ -Discharged. Given that this is an exacerbation of her chronic pain and the patient has no red flag signs or symptoms, no imaging was performed. Her pain was well controlled in the emergency department. Prescription for naproxen and Robaxin provided with dosing instructions reviewed. Advised that if she she takes the Robaxin, she cannot take the Flexeril, she can take one or the other. Also advised avoiding any other NSAIDs with the naproxen. Patient discharged home in stable condition and will follow up with her neurologist. Undiagnosed new problem with uncertain prognosis? @ -None Drug Therapy requiring intensive monitoring for toxicity (Heparin, Nitro, Insulin, Cardizem)? @ -None Were any procedures done? @ -None Diagnosis/symptom? @ -Chronic back pain Acute, or Chronic, or Acute on Chronic? @ -Chronic Uncomplicated (without systemic symptoms) or Complicated (systemic symptoms)? @ -Uncomplicated Side effects of treatment? @ -None Exacerbation, Progression, or Severe Exacerbation] @ -Exacerbation Poses a threat to life or bodily function? @ -The pain is impacting her ability to function. Return precautions reviewed in depth, the patient is instructed to return to the emergency department with any new, worsening, or concerning symptoms. Patient verbalized understanding. This case was discussed in detail with the attending ED physician, Dr. Grijalva. Presentation, findings, and treatment plan discussed in detail as well. Disposition Clinical Impression: Back pain Disposition: HOME SELF-CARE Instructions (If sedation given, give patient instructions): Back Pain (ED) Additional Instructions: Return to the emergency department with any new, worsening, or concerning symptoms. Take the naproxen twice daily as needed for pain relief. If you choose to take this, do not take any other anti-inflammatories such as ibuprofen, take one or the other. You can take the Robaxin as 1-2 tablets up to 3-4 times daily. If you choose to take this, do not take the Flexeril, take one or the other. Take the Tramadol sparingly when your pain is the most severe. Follow up with your primary care provider in 1-2 days. Prescriptions: Naproxen Sodium 550 mg PO BID PRN #30 tablet PRN Reason: Pain methocarbamoL [Robaxin-750] 1,500 mg PO TID PRN #30 tab PRN Reason: Pain Is patient prescribed a controlled substance at d/c from ED?: No Referrals: Kim Osborne MD [Primary Care Provider] - 1-2 days Time of Disposition: 13:59
[2023-11-24] MEDS: KETOROLAC 15 MG/ML 1 ML VIAL IVP STA ×2 (13:12→14:08)
[2023-11-24] MEDS: ORPHENADRINE 30 MG/ML 2 ML VIAL IVP STA (13:15)
[2023-11-24] MEDS: DEXAMETHASONE SOD PHOSPHATE 10 MG/ML 1 ML VIAL IVP STA (13:16)
[2023-11-24] MEDS: HYDROmorphone 1 MG/ML 1 ML SYRINGE IVP STA ×2 (13:19→14:09)
[2023-11-24] MEDS: LIDOCAINE 4% PATCH TOPICAL ONE (14:08)
[2023-11-24] MEDS: traMADol 50 MG STARTER PACK 3 TAB BTL PO STA (14:08)
[2023-11-24] MEDS: IBUPROFEN 600 MG STARTER PACK 4 TAB BTL PO STA (14:08)
[2023-11-24 14:39] VITALS: BP 132/70; PULSE 78; RESP 18; TEMP 98.1
== END 2023-11-24 14:20 | disposition home or self-care (01) ==
LOC: EC 12:05
DX: G89.29 Other chronic pain (principal); M54.50 Low back pain, unspecified; E03.9 Hypothyroidism, unspecified; E78.5 Hyperlipidemia, unspecified; F17.200 Nicotine dependence, unspecified, uncomplicated; F12.90 Cannabis use, unspecified, uncomplicated; Z79.890 Hormone replacement therapy; Z79.899 Other long term (current) drug therapy; Z86.73 Personal history of transient ischemic attack (TIA), and cerebral infarction without residual deficits
CPT/HCPCS: 99283 ×2; 96374 ×2; 96375 ×4; 96376 ×3; J1100; J2360; J1170; J1885

== ENCOUNTER 2024-01-30 11:25 | Day surgery (SDC) | payer BC ==
[2024-01-29 12:16] VITALS: BMI 31.6
[2024-01-30] MEDS: LACTATED RINGERS 1,000 ML IV SCH (12:33)
[2024-01-30] MEDS ORDERED: LIDOCAINE 1% INJ 10MG/ML (20 ML MDV) ONE (12:55)
[2024-01-30] MEDS ORDERED: PROPOFOL 10 MG/ML 20 ML VIAL IV ONE (12:55)
[2024-01-30 12:58] VITALS: TEMP 97.8
--- NOTE | 2024-01-30 13:14 | P.PCN ---
Date of Procedure: 01/30/24 Procedure(s) Performed: BRIEF HISTORY: Patient is a 59-year-old pleasant White female scheduled for an elective colonoscopy as a part of Screening for colon cancer. PROCEDURE PERFORMED: Colonoscopy. PREOPERATIVE DIAGNOSIS: Screening for colon cancer. IV sedation per Anesthesia. PROCEDURE: After informed consent was obtained, the patient, was brought into the endoscopy unit. IV sedation was administered by Anesthesia under continuous monitoring. Digital rectal examination was normal. Initially the Olympus CF-160 flexible video colonoscope was then inserted in the rectum, gradually advanced into the cecum without any difficulty. Careful examination was performed as the scope was gradually being withdrawn. Ileocecal valve and the appendiceal orifice were visualized and appeared normal. Prep was fair. Mucosa of the cecum, ascending colon, transverse colon, descending colon, sigmoid colon, and rectum appeared normal. Retroflexion was performed in the rectum and no lesions were seen. The patient tolerated the procedure well. IMPRESSION: Normal-appearing colon from rectum to cecum With no evidence of colorectal neoplasia RECOMMENDATIONS: Findings of this examination were discussed with the patient ss well as a her family. She was advised to have a repeat screening colonoscopy in 10 years..
[2024-01-30 14:21] VITALS: PULSE 98; RESP 20
[2024-01-30 14:22] VITALS: BP 156/97
== END 2024-01-30 14:12 | disposition home or self-care (01) ==
LOC: ORWHC2ENDO 11:25
PROVIDERS: ATTEND Internal Medicine Gastroenterology
DX: Z12.11 Encounter for screening for malignant neoplasm of colon (principal); I10 Essential (primary) hypertension; E78.5 Hyperlipidemia, unspecified; G35 Multiple sclerosis; F17.210 Nicotine dependence, cigarettes, uncomplicated; Z86.73 Personal history of transient ischemic attack (TIA), and cerebral infarction without residual deficits; Z88.9 Allergy status to unspecified drugs, medicaments and biological substances; Z79.82 Long term (current) use of aspirin; Z79.899 Other long term (current) drug therapy; Z98.890 Other specified postprocedural states; Z98.891 History of uterine scar from previous surgery
CPT/HCPCS: 45378

== ENCOUNTER 2024-04-05 09:42 | Emergency (ER) | payer BC ==
[2024-04-05 09:51] VITALS: RESP 18
--- NOTE | 2024-04-05 10:17 | ED ---
General Adult HPI - General Chief complaint: Back Pain/Injury Stated complaint: back pain,shoulder pain Time Seen by Provider: 04/05/24 09:56 Source: patient, RN notes reviewed, old records reviewed Mode of arrival: ambulatory Limitations: no limitations - History of Present Illness Initial comments: 59-year-old female presenting with chronic low back pain and right shoulder pain. The back pain has been present for several years and is unchanged. Patient has developed right shoulder pain over the past several months and is following closely with orthopedics. She was scheduled for intervention of adhesive capsulitis of the right shoulder but her insurance denied this. This was scheduled for tomorrow with Dr. Thompson. Patient denies any acute worsening, no recent fall, no fever. She is requesting pain medication as the 800 mg of Motrin she is taking 3 times daily is not significantly reducing her pain. - Related Data Home Medications Medication Instructions Recorded Confirmed Levothyroxine Sodium [Synthroid] 50 mcg PO DAILY 03/05/16 03/26/24 Levothyroxine Sodium [Synthroid] 200 mcg PO DAILY 10/03/17 03/26/24 Rosuvastatin Calcium 10 mg PO DAILY 12/23/22 03/26/24 amLODIPine [Norvasc] 5 mg PO DAILY 12/23/22 03/26/24 Aspirin [Adult Low Dose Aspirin EC] 81 mg PO DAILY 01/29/24 03/26/24 Pregabalin [Lyrica] 100 mg PO DAILY 01/29/24 03/26/24 Acetaminophen [Tylenol Extra 1,000 mg PO Q6HR PRN 03/26/24 03/26/24 Strength] Previous Rx's Medication Instructions Recorded Ibuprofen [Motrin] 600 mg PO Q8HR PRN #30 tab 11/11/22 Cyclobenzaprine [Flexeril] 10 mg PO TID PRN #15 tab 03/21/23 HYDROcodone/APAP 5-325MG [Adrian 1 tab PO Q6HR PRN #12 tab 04/05/24 5-325] Allergies Allergy/AdvReac Type Severity Reaction Status Date / Time gabapentin Allergy Rash/Hives Verified 04/05/24 09:51 Review of Systems ROS Statement: Those systems with pertinent positive or pertinent negative responses have been documented in the HPI. ROS Other: All systems not noted in ROS Statement are negative. Past Medical History Past Medical History: CVA/TIA, GERD/Reflux, Hyperlipidemia, Hypertension, Neurologic Disorder, Thyroid Disorder Additional Past Medical History / Comment(s): 2016 Possible TIA/CVA or migraine with double vision, currently being tested for multiple sclerosis, chronic low back pain-L1,2,3, frequent migraines. RT FROZEN SHOULDER-VERY LIMITED MOVEMENT History of Any Multi-Drug Resistant Organisms: None Reported Past Surgical History: Section, Orthopedic Surgery Additional Past Surgical History / Comment(s): BONE SPURS REMOVED FROM BILAT SHOULDERS, C/S x2, PAIN CLINIC PROCEDURES, Neck surgery, EYELID SURGERY, COLONSCOPIES Past Anesthesia/Blood Transfusion Reactions: No Reported Reaction Additional Past Anesthesia/Blood Transfusion Reaction / Comment(s): Woke up during shoulder surgery. Past Psychological History: No Psychological Hx Reported Smoking Status: Current every day smoker - Past Family History Father History Unknown: Yes Family Medical History: Diabetes Mellitus Additional Family Medical History / Comment(s): Father lived to be 78 yrs old. Mother History Unknown: Yes Family Medical History: COPD, Respiratory Disorder Additional Family Medical History / Comment(s): Mother of respiratory failure at the age of 69. General Exam Limitations: no limitations General appearance: alert, in no apparent distress Head exam: Present: atraumatic, normocephalic Eye exam: Present: normal appearance, PERRL Neck exam: Present: normal inspection. Absent: tenderness Respiratory exam: Present: normal lung sounds bilaterally. Absent: respiratory distress, rhonchi Cardiovascular Exam: Present: regular rate, normal rhythm GI/Abdominal exam: Present: soft. Absent: distended, tenderness Extremities exam: Present: tenderness. Absent: full ROM (Decreased range of motion of the right shoulder, pain with movement, distal pulses intact, normal events associate strength) Neurological exam: Present: alert, oriented X3, CN II-XII intact, normal gait. Absent: motor sensory deficit Psychiatric exam: Present: normal affect, normal mood Skin exam: Present: warm, dry, intact. Absent: cyanosis, diaphoretic Course Vital Signs 04/05/24 09:48 Temperature 97 F L Pulse Rate 81 Respiratory 18 Rate Blood Pressure 159/89 O2 Sat by Pulse 100 Oximetry Medical Decision Making - Medical Decision Making Was pt. sent in by a medical professional or institution (, PA, LOAD PLANNER, urgent care, hospital, or long term...) When possible be specific @ -No Did you speak to anyone other than the patient for history (EMS, parent, family, police, friend...)? What history was obtained from this source @ -No Did you review nursing and triage notes (agree or disagree)? Why? @ -I reviewed and agree with nursing and triage notes Were old charts reviewed (outside hosp., previous admission, EMS record, old EKG, old radiological studies, urgent care reports/EKG's, long term records)? Report findings @ -No old charts were reviewed Differential Musculoskeletal Muscular strain, contusion, ligament sprain, fracture, arthritis, septic arthritis, bursitis, cellulitis, muscle spasm, nerve compression, DVT, arterial occlusion, herpes zoster, electrolyte abnormality, tumor.... This is not meant to be in all inclusive list EKG interpreted by me (3pts min.). @ -As above X-rays interpreted by me (1pt min.). @ -None done CT interpreted by me (1pt min.). @ -None done U/S interpreted by me (1pt. min.). @ -None done What testing was considered but not performed or refused? (CT, X-rays, U/S, labs)? Why? @ -None What meds were considered but not given or refused? Why? @ -None Did you discuss the management of the patient with other professionals (professionals i.e. , PA, LOAD PLANNER, lab, RT, psych nurse, social service liaison, intellectual property lawyer, teacher, landcare officer, watch caser)? Give summary @ -No Was smoking cessation discussed for >3mins.? @ -No Was critical care preformed (if so, how long)? @ -No Were there social determinants of health that impacted care today? How? (Homelessness, low income, unemployed, alcoholism, drug addiction, transportation, low edu. Level, literacy, decrease access to med. care, longterm, rehab)? @ -No Was there de-escalation of care discussed even if they declined (Discuss DNR or withdrawal of care, Hospice)? DNR status @ -No What co-morbidities impacted this encounter? (DM, HTN, Smoking, COPD, CAD, Cancer, CVA, ARF, Chemo, Hep., AIDS, mental health diagnosis, sleep apnea, morbid obesity)? @ -None Was patient admitted / discharged? Hospital course, mention meds given and route, prescriptions, significant lab abnormalities, going to OR and other pertinent info. @59-year-old female requesting pain medication due to right shoulder pain with known frozen shoulder. Patient is awaiting insurance confirmation for intervention of this issue with orthopedics. She has no new falls. No new concerns. Just requesting stronger pain medication. Patient prescribed 3 days of Adrian in addition to the Motrin she is already taking. She will follow closely with orthopedics. Undiagnosed new problem with uncertain prognosis? @ -No Drug Therapy requiring intensive monitoring for toxicity (Heparin, Nitro, Insulin, Cardizem)? @ -No Were any procedures done? @ -No Diagnosis/symptom? @Frozen shoulder, chronic pain Acute, or Chronic, or Acute on Chronic? @Acute Uncomplicated (without systemic symptoms) or Complicated (systemic symptoms)? @ -Default Side effects of treatment? @ -No Exacerbation, Progression, or Severe Exacerbation? @ -No Poses a threat to life or bodily function? How? (Chest pain, [place], CA, pneumonia, PE, COPD, DKA, ARF, appy, cholecystitis, CVA, Diverticulitis, Homicidal, Suicidal, threat to staff... and all critical care pts) @ -No Disposition Clinical Impression: Adhesive capsulitis of right shoulder, Chronic pain Disposition: HOME SELF-CARE Condition: Fair Instructions (If sedation given, give patient instructions): Chronic Pain (ED) Prescriptions: HYDROcodone/APAP 5-325MG [Adrian 5-325] 1 tab PO Q6HR PRN #12 tab PRN Reason: Pain Is patient prescribed a controlled substance at d/c from ED?: No Referrals: Kim Obsorne MD [Primary Care Provider] - 1-2 days Neville Thompson MD [STAFF PHYSICIAN] - 1-2 days Time of Disposition: 10:16
[2024-04-05 10:24] VITALS: BP 146/76; PULSE 74; TEMP 97.6
== END 2024-04-05 10:24 | disposition home or self-care (01) ==
LOC: EC 09:42
DX: G89.29 Other chronic pain (principal); M77.8 Other enthesopathies, not elsewhere classified; F17.200 Nicotine dependence, unspecified, uncomplicated; Z88.8 Allergy status to other drugs, medicaments and biological substances
CPT/HCPCS: 99283